=== PATIENT | male | born 1970 | race American Indian/Alaskan Native ===

== ENCOUNTER 2019-10-22 20:24 | Emergency (ER) | payer OTHER ==
[2019-10-22 20:34] VITALS: BP 134/77
--- NOTE | 2019-10-22 20:35 | Emergency Department Report ---
Blank Doc - Documentation Documentation: 48-year-old male that presents with right leg swelling and drainage. HX of CHF. This initial assessment/diagnostic orders/clinical plan/treatment(s) is/are subject to change based on patient's health status, clinical progression and re- assessment by fellow clinical providers in the ED. Further treatment and workup at subsequent clinical providers discretion. Patient/guardians urged not to elope from the ED as their condition may be serious if not clinically assessed and managed. Initial orders include: 1- Patient sent to MAIN ED for further evaluation and treatment 2- labs
[2019-10-22 21:10] LABS: Basophils % (Auto) 0.6 % (0.0-1.8); Eosinophils # (Auto) 0.1 K/mm3 (0.0-0.4); Eosinophils % (Auto) 2.2 % (0.0-4.3); Hematocrit 48.9 % (35.5-45.6); Hemoglobin 15.7 gm/dl (11.8-15.2); Lymphocytes # (Auto) 1.3 K/mm3 (1.2-5.4); Lymphocytes % (Auto) 21.2 % (13.4-35.0); Mean Corpuscular HGB Conc 32 % (32-34); Mean Corpuscular Volume 90 fl (84-94); Monocytes # (Auto) 0.4 K/mm3 (0.0-0.8); Monocytes % (Auto) 7.5 % (0.0-7.3); Platelet Count 169 K/mm3 (140-440); Red Blood Count 5.47 M/mm3 (3.65-5.03); Red Cell Distribution Width 15.6 % (13.2-15.2)
[2019-10-22 21:28] LABS: Alanine Aminotransferase 13 units/L (7-56); Albumin 3.6 g/dL (3.9-5); BUN/Creatinine Ratio 14; Blood Urea Nitrogen 14 mg/dL (9-20); Calcium 8.8 mg/dL (8.4-10.2); Hemolysis Index 21
--- NOTE | 2019-10-22 23:30 | Emergency Department Report ---
ED General Adult HPI - General Chief complaint: Extremity Injury, Lower Stated complaint: FLUID LEAKING FROM LEG Time Seen by Provider: 10/22/19 23:20 Source: patient Mode of arrival: Ambulatory Limitations: No Limitations - History of Present Illness Initial comments: Patient is a 48-year-old male that presents emergency room with complaints of right lower extremity swelling and weeping that started yesterday. Patient states it is not worsening. Patient states is improving. Patient states his edema in his right lower extremity has improved since his leg started weeping. Patient states he has a history of diabetes, hyperlipidemia, hypertension, CHF. Patient states he is compliant with all his medications to include his Coumadin. Patient denies pain in his legs. Patient denies calf tenderness. Patient denies any difficulties walking. Patient denies shortness of breath and chest pain. Patient denies fever and chills. Patient states that the fluid coming out is a clear fluid. Patient denies redness to his leg. -: Sudden - Related Data Home Medications Medication Instructions Recorded Confirmed Last Taken Lasix TAB 80 mg PO DAILY 08/12/16 08/14/16 Unknown Lisinopril 20 mg PO DAILY 08/12/16 08/14/16 Unknown Pravastatin 20 mg PO QHS 08/12/16 08/14/16 Unknown metFORMIN 1,000 mg PO BID 08/12/16 08/14/16 Unknown Coreg 6.25 mg PO BID 08/14/16 08/14/16 Unknown Previous Rx's Medication Instructions Recorded Last Taken Type Amiodarone 200 mg PO DAILY #30 08/14/16 Unknown Rx Aspirin EC [Halfprin EC] 81 mg PO QDAY #30 tablet. 08/14/16 Unknown Rx Coumadin 5 mg PO DAILY #30 08/14/16 Unknown Rx Famotidine [Pepcid] 20 mg PO BID #60 tablet 08/14/16 Unknown Rx Compress.stocking,Knee,Reg,Lrg 1 each MC ONCE #1 each 10/22/19 Unknown Rx [Relief Knee Open Toe] Allergies Allergy/AdvReac Type Severity Reaction Status Date / Time No Known Allergies Allergy Verified 11/25/15 07:22 ED Review of Systems ROS: Stated complaint: FLUID LEAKING FROM LEG Other details as noted in HPI Comment: All other systems reviewed and negative Constitutional: denies: chills, fever Eyes: denies: eye pain, eye discharge, vision change ENT: denies: ear pain, throat pain Respiratory: denies: cough, shortness of breath, wheezing Cardiovascular: edema. denies: chest pain, palpitations Endocrine: no symptoms reported Gastrointestinal: denies: abdominal pain, nausea, diarrhea Genitourinary: denies: urgency, dysuria Musculoskeletal: denies: back pain, joint swelling, arthralgia Skin: denies: rash, lesions Neurological: denies: headache, weakness, paresthesias Psychiatric: denies: anxiety, depression Hematological/Lymphatic: denies: easy bleeding, easy bruising ED Past Medical Hx - Past Medical History Previous Medical History?: Yes Hx Hypertension: Yes Hx CVA: Yes Hx Heart Attack/AMI: No Hx Congestive Heart Failure: Yes Hx Diabetes: Yes Hx Pulmonary Embolism: No Hx GERD: No Hx Liver Disease: No Hx Renal Disease: No Hx Sickle Cell Disease: No Hx Arthritis: No Hx Headaches / Migraines: No Hx Seizures: No Hx Kidney Stones: No Hx Psychiatric Treatment: No Hx Asthma: No Hx COPD: No Hx Tuberculosis: No Hx Dementia: No Hx HIV: No Additional medical history: Atrial fibrillation (Coumadin therapy). Sleep Apnea - Surgical History Past Surgical History?: Yes Hx Coronary Stent: No Hx Open Heart Surgery: No Hx Pacemaker: No Hx Internal Defibrillator: No Hx Cholecystectomy: No Hx Appendectomy: No Hx Breast Surgery: No Additional Surgical History: surgery on left hand and on mouth(fx jaw) - Family History Family history: no significant - Social History Smoking Status: Never Smoker Substance Use Type: None - Medications Home Medications: Home Medications Medication Instructions Recorded Confirmed Last Taken Type Lasix TAB 80 mg PO DAILY 08/12/16 08/14/16 Unknown History Lisinopril 20 mg PO DAILY 08/12/16 08/14/16 Unknown History Pravastatin 20 mg PO QHS 08/12/16 08/14/16 Unknown History metFORMIN 1,000 mg PO BID 08/12/16 08/14/16 Unknown History Amiodarone 200 mg PO DAILY #30 08/14/16 Unknown Rx Aspirin EC [Halfprin EC] 81 mg PO QDAY #30 tablet. 08/14/16 Unknown Rx Coreg 6.25 mg PO BID 08/14/16 08/14/16 Unknown History Coumadin 5 mg PO DAILY #30 08/14/16 Unknown Rx Famotidine [Pepcid] 20 mg PO BID #60 tablet 08/14/16 Unknown Rx Compress.stocking,Knee,Reg,Lrg 1 each ONCE #1 each 10/22/19 Unknown Rx [Relief Knee Open Toe] ED Physical Exam - General Limitations: No Limitations General appearance: alert, in no apparent distress - Head Head exam: Present: atraumatic, normocephalic - Eye Eye exam: Present: normal appearance - ENT ENT exam: Present: normal orophraynx, mucous membranes moist. Absent: mucous membranes dry - Neck Neck exam: Present: normal inspection - Respiratory Respiratory exam: Present: normal lung sounds bilaterally. Absent: respiratory distress, wheezes, rales, rhonchi, chest wall tenderness, accessory muscle use, decreased breath sounds, prolonged expiratory - Cardiovascular Cardiovascular Exam: Present: regular rate, normal rhythm. Absent: systolic murmur, diastolic murmur, rubs, gallop - GI/Abdominal GI/Abdominal exam: Present: soft, normal bowel sounds. Absent: distended, tenderness, guarding - Rectal Rectal exam: Present: deferred - Extremities Exam Extremities exam: Present: full ROM, normal capillary refill, pedal edema (bilateral lower extremity edema. Right lower extremity shows weeping of clear fluid. No tenderness to palpation. No redness noted.). Absent: tenderness, calf tenderness - Back Exam Back exam: Present: normal inspection - Neurological Exam Neurological exam: Present: alert, oriented X3 - Psychiatric Psychiatric exam: Present: normal affect, normal mood - Skin Skin exam: Present: warm, dry, normal color. Absent: rash ED Course Vital Signs 10/22/19 20:30 Temperature 98.4 F Pulse Rate 76 Respiratory 20 Rate Blood Pressure 134/77 O2 Sat by Pulse 86 Oximetry - Reevaluation(s) Reevaluation #1: I discussed all results with patient. I discussed plan of care with patient. Patient will be given compression stockings. Patient to continue all of his medications. Patient given discharge instructions. Patient voiced understanding of discharge instructions. 10/22/19 23:29 ED Medical Decision Making - Lab Data Result diagrams: 10/22/19 20:57 10/22/19 20:57 - Medical Decision Making Patient is a 48-year-old male up since emergency room with complaints of right lower extremity swelling and weeping. Patient states he always has edema but this time he is having weeping from the left lower extremity. Patient has no signs of active infection. Patient is currently on Coumadin. Patient does not have any calf tenderness. Patient stable for discharge. Patient was discharged home. Patient's labs unremarkable. Patient will be given a prescription for compression stockings. - Differential Diagnosis edema. Critical care attestation.: If time is entered above; I have spent that time in minutes in the direct care of this critically ill patient, excluding procedure time. ED Disposition Clinical Impression: Right leg swelling, Chronic systolic CHF (congestive heart failure) Edema Qualifiers: Edema type: unspecified Qualified Code(s): R60.9 - Edema, unspecified Disposition: DC- TO HOME OR SELFCARE Is pt being admited?: No Does the pt Need Aspirin: No Condition: Stable Instructions: Heart Failure (ED), Leg Edema (ED), Sequential Compression Devices (GEN) Additional Instructions: Patient to follow up with primary care in 2-3 days. Patient to follow-up with general administrator in 2-3 days. Patient to return to ER if condition worsens. Gale ent to rest. Patient to elevate his lower extremities. Patient to apply compression stockings to bilateral lower extremities. Patient to continue all medications. Prescriptions: Compress.stocking,Knee,Reg,Lrg [Relief Knee Open Toe] 1 each ONCE #1 each Time of Disposition: 23:33
== END 2019-10-23 | disposition home or self-care (01) ==
LOC: ED 20:24
DX: I50.22 Chronic systolic (congestive) heart failure (principal); R60.0 Localized edema; I11.0 Hypertensive heart disease with heart failure; I50.9 Heart failure, unspecified; E11.9 Type 2 diabetes mellitus without complications; I48.91 Unspecified atrial fibrillation; Z86.73 Personal history of transient ischemic attack (TIA), and cerebral infarction without residual deficits; Z79.899 Other long term (current) drug therapy
CPT/HCPCS: 36415; 80053; 83880; 85025

== ENCOUNTER 2022-03-28 17:45 | Inpatient (IN) | payer SELFPAY ==
--- NOTE | 2022-03-28 19:32 | Emergency Department Report ---
ED Shortness of Breath HPI - General Chief Complaint: Dyspnea/Respdistress Stated Complaint: COPD Time Seen by Provider: 03/28/22 19:24 Source: patient Mode of arrival: Ambulatory Limitations: No Limitations - History of Present Illness Initial Comments: Patient presents with complaints of SOB @ rest and on exertion. Endorses PND, orthopnea, intermittent, non radiating retrosternal chest pressure. Denies, palpitations, diaphoresis. Reports worsening bilateral leg swelling. Denies pain in his calves, recent travel, immobilization, surgery, hospitalization, sex HRT use. - Related Data Home Medications Medication Instructions Recorded Confirmed Last Taken Pravastatin 20 mg PO QHS 08/12/16 12/10/19 12/08/19 22:00 metFORMIN 1,000 mg PO BID 08/12/16 12/10/19 12/03/19 22:00 Diclofenac 1% topical gel 4 gram TRANSDERMA 4XD 12/10/19 12/10/19 12/08/19 22:00 Pradaxa 150 mg PO BID 12/10/19 12/10/19 12/08/19 22:00 Torsemide 10 mg PO DAILY 12/10/19 12/10/19 12/08/19 tiZANidine 4 mg PO TID 12/10/19 12/10/19 12/10/19 10:00 Previous Rx's Medication Instructions Recorded Last Taken Type Amiodarone 200 mg PO DAILY #30 08/14/16 12/08/19 10:00 Rx Aspirin EC [Halfprin EC] 81 mg PO QDAY #30 tablet. 08/14/16 12/08/19 10:00 Rx Compress.stocking,Knee,Reg,Lrg 1 each ONCE #1 each 10/22/19 12/08/19 22:00 Rx [Relief Knee Open Toe] Dabigatran [Pradaxa] 150 mg PO BID capsule 12/11/19 Unknown Rx Insulin Glargine [Lantus VIAL] 20 units SUB-Q QHS #30 units 12/11/19 Unknown Rx carvediloL [Coreg] 3.125 mg PO BID #60 tablet 12/11/19 Unknown Rx lisinopriL [Zestril TAB] 5 mg PO QDAY #30 tablet 12/11/19 Unknown Rx Allergies Allergy/AdvReac Type Severity Reaction Status Date / Time No Known Allergies Allergy Verified 11/25/15 07:22 ED Review of Systems ROS: Stated complaint: COPD Other details as noted in HPI Comment: All other systems reviewed and negative Constitutional: denies: chills, fever ED Past Medical Hx - Past Medical History Hx Hypertension: Yes Hx CVA: Yes Hx Heart Attack/AMI: No Hx Congestive Heart Failure: Yes Hx Diabetes: Yes Hx Pulmonary Embolism: No Hx GERD: No Hx Liver Disease: No Hx Renal Disease: No Hx Sickle Cell Disease: No Hx Arthritis: No Hx Headaches / Migraines: No Hx Seizures: No Hx Kidney Stones: No Hx Psychiatric Treatment: No Hx Asthma: No Hx COPD: No Hx Tuberculosis: No Hx Dementia: No Hx HIV: No Additional medical history: Atrial fibrillation (Coumadin therapy). Sleep Apnea - Surgical History Hx Coronary Stent: No Hx Open Heart Surgery: No Hx Pacemaker: No Hx Internal Defibrillator: No Hx Cholecystectomy: No Hx Appendectomy: No Hx Breast Surgery: No Additional Surgical History: surgery on left hand and on mouth(fx jaw) - Social History Smoking Status: Never Smoker - Medications Home Medications: Home Medications Medication Instructions Recorded Confirmed Last Taken Type Pravastatin 20 mg PO QHS 08/12/16 12/10/19 12/08/19 22:00 History metFORMIN 1,000 mg PO BID 08/12/16 12/10/19 12/03/19 22:00 History Amiodarone 200 mg PO DAILY #30 08/14/16 12/10/19 12/08/19 10:00 Rx Aspirin EC [Halfprin EC] 81 mg PO QDAY #30 tablet. 08/14/16 12/10/19 12/08/19 10:00 Rx Compress.stocking,Knee,Reg,Lrg 1 each MC ONCE #1 each 10/22/19 12/10/19 12/08/19 22:00 Rx [Relief Knee Open Toe] Diclofenac 1% topical gel 4 gram TRANSDERMA 4XD 12/10/19 12/10/19 12/08/19 22:00 History Pradaxa 150 mg PO BID 12/10/19 12/10/19 12/08/19 22:00 History Torsemide 10 mg PO DAILY 12/10/19 12/10/19 12/08/19 History tiZANidine 4 mg PO TID 12/10/19 12/10/19 12/10/19 10:00 History Dabigatran [Pradaxa] 150 mg PO BID capsule 12/11/19 Unknown Rx Insulin Glargine [Lantus VIAL] 20 units SUB-Q QHS #30 units 12/11/19 Unknown Rx carvediloL [Coreg] 3.125 mg PO BID #60 tablet 12/11/19 Unknown Rx lisinopriL [Zestril TAB] 5 mg PO QDAY #30 tablet 12/11/19 Unknown Rx ED Physical Exam - General Limitations: No Limitations General appearance: alert, in no apparent distress - Head Head exam: Present: atraumatic, normocephalic - Eye Eye exam: Present: PERRL, EOMI - ENT ENT exam: Present: mucous membranes moist, other (airway patent) - Neck Neck exam: Present: other (supple; no JVD) - Respiratory Respiratory exam: Present: other (good air entry, nml I:E, crackles in bilateral bases, no use of KURT) - Cardiovascular Cardiovascular Exam: Present: regular rate. Absent: rubs, gallop - GI/Abdominal GI/Abdominal exam: Present: soft, normal bowel sounds. Absent: distended, tenderness - Extremities Exam Extremities exam: Present: other (3+ edema in shins bilaterally; R=L'; non tender calves; neg Ck's sign bilaterally) - Back Exam Back exam: Present: full ROM. Absent: tenderness - Neurological Exam Neurological exam: Present: alert, oriented X3, CN II-XII intact. Absent: motor sensory deficit - Skin Skin exam: Present: warm, dry ED Course Vital Signs 03/28/22 03/28/22 03/28/22 18:47 19:16 19:29 Temperature 98.4 F 98.0 F Pulse Rate 104 H 106 H 98 H Respiratory 22 35 H 19 Rate Blood Pressure Blood Pressure 181/108 158/111 [Left] O2 Sat by Pulse 85 95 Oximetry 03/28/22 03/28/22 03/28/22 19:30 19:46 20:00 Temperature Pulse Rate 97 H 98 H 100 H Respiratory 28 H 18 26 H Rate Blood Pressure 158/111 165/101 172/100 Blood Pressure [Left] O2 Sat by Pulse 95 96 95 Oximetry 03/28/22 03/28/22 03/28/22 20:16 20:30 20:46 Temperature Pulse Rate 93 H 92 H 94 H Respiratory 13 18 21 Rate Blood Pressure 162/108 150/105 141/93 Blood Pressure [Left] O2 Sat by Pulse 94 96 95 Oximetry 03/28/22 03/28/22 03/28/22 21:00 21:16 21:30 Temperature Pulse Rate 97 H 91 H 96 H Respiratory 26 H 30 H 30 H Rate Blood Pressure 165/99 172/93 174/90 Blood Pressure [Left] O2 Sat by Pulse 80 L 83 L 78 L Oximetry 03/28/22 03/28/22 03/28/22 21:46 22:00 22:13 Temperature 98.0 F Pulse Rate 96 H 94 H Respiratory 27 H 35 H Rate Blood Pressure 189/100 160/91 Blood Pressure [Left] O2 Sat by Pulse 82 L 86 Oximetry 03/28/22 03/28/22 03/28/22 22:16 22:40 22:46 Temperature Pulse Rate 93 H 107 H 101 H Respiratory 27 H 20 24 Rate Blood Pressure 166/105 166/105 166/105 Blood Pressure [Left] O2 Sat by Pulse 95 89 91 Oximetry 03/28/22 22:53 Temperature 98.8 F Pulse Rate 101 H Respiratory 24 Rate Blood Pressure 166/105 Blood Pressure [Left] O2 Sat by Pulse 91 Oximetry ED Medical Decision Making - Lab Data Result diagrams: 03/28/22 20:03 03/28/22 19:50 Laboratory Tests 03/28/22 03/28/22 03/28/22 19:50 20:03 20:03 WBC 6.1 RBC 5.27 H Hgb 15.1 Hct 46.2 H MCV 88 MCH 29 MCHC 33 RDW 15.1 Plt Count 156 Lymph % (Auto) 20.6 Barry % (Auto) 7.9 H Eos % (Auto) 1.5 Baso % (Auto) 0.8 Lymph # (Auto) 1.3 Barry # (Auto) 0.5 Eos # (Auto) 0.1 Baso # (Auto) 0.0 Seg Neutrophils % 69.2 Seg Neutrophils # 4.2 Sodium 141 Potassium 3.9 Chloride 99.7 Carbon Dioxide 34 H Anion Gap 11 BUN 9 Creatinine 0.8 Estimated GFR > 60 BUN/Creatinine Ratio 11 Glucose 194 H Calcium 8.5 Total Bilirubin 0.80 AST 14 ALT 18 Alkaline Phosphatase 85 Troponin T < 0.010 NT-Pro-B Natriuret Pep 790.5 Total Protein 6.9 Albumin 3.7 L Albumin/Globulin Ratio 1.2 CXR: no acute cardiopulmonary process CTA chest: no PE; scattered ground glass attenuations throughout lungs EKG: HR 96, SR, nml NH, narrow QRS, TWI in I, aVL, no significant ST changes in contiguous leads HEART score 5 - Medical Decision Making Diff dz: worrisome for ACS with CHF exacerbation. Need to r/o pneumonia. PE, pneumothorax, aortic dissection ruled out. Received aspirin 324 mg PO x 1, NTG 0.4 mg SL x 1, furosemide 40 mg IV x 1 Critical care attestation.: If time is entered above; I have spent that time in minutes in the direct care of this critically ill patient, excluding procedure time. ED Disposition Clinical Impression: Shortness of breath, Chest pain Disposition: ADMITTED INPATIENT Is pt being admited?: No Condition: Stable Time of Disposition: 23:30 (Patient admitted to Dr. [place]wood. Sign out was given by me to the admitting physician. )
--- NOTE | 2022-03-28 19:55 | XRay Report ---
XR chest 1V ap INDICATION / CLINICAL INFORMATION: SOB COMPARISON: 12/09/19 FINDINGS: SUPPORT DEVICES: None. HEART / MEDIASTINUM: Cardiomegaly. LUNGS / PLEURA: Pulmonary vascular congestion. Costophrenic sulci are sharp. No pneumothorax. ADDITIONAL FINDINGS: No significant additional findings. IMPRESSION: 1. No acute findings. Signer Name: Barry Little MD Signed: 03/28/2022 7:51 PM Workstation Name: [id number]
[2022-03-28 20:11] LABS: Basophils % (Auto) 0.8 % (0.0-1.8); Eosinophils # (Auto) 0.1 K/mm3 (0.0-0.4); Eosinophils % (Auto) 1.5 % (0.0-4.3); Hematocrit 46.2 % (35.5-45.6); Hemoglobin 15.1 gm/dl (11.8-15.2); Lymphocytes # (Auto) 1.3 K/mm3 (1.2-5.4); Lymphocytes % (Auto) 20.6 % (13.4-35.0); Mean Corpuscular HGB Conc 33 % (32-34); Mean Corpuscular Volume 88 fl (84-94); Monocytes # (Auto) 0.5 K/mm3 (0.0-0.8); Monocytes % (Auto) 7.9 % (0.0-7.3); Platelet Count 156 K/mm3 (140-440); Red Blood Count 5.27 M/mm3 (3.65-5.03); Red Cell Distribution Width 15.1 % (13.2-15.2)
[2022-03-28 20:30] LABS: Alanine Aminotransferase 18 units/L (7-56); Albumin 3.7 g/dL (3.9-5); BUN/Creatinine Ratio 11; Blood Urea Nitrogen 9 mg/dL (9-20); Calcium 8.5 mg/dL (8.4-10.2); Hemolysis Index 7
--- NOTE | 2022-03-28 22:59 | Cat Scan Report ---
CTA CHEST WITH CONTRAST INDICATION / CLINICAL INFORMATION: SOB. TECHNIQUE: Axial CT images were obtained through the chest after injection of 100 cc of Omnipaque 350 IV contrast. 3 plane MIP and/or 3D reconstructions were produced. All CT scans at this location are performed using CT dose reduction for ALARA by means of automated exposure control. COMPARISON: Chest radiograph from earlier in the day. FINDINGS: PULMONARY ARTERIES: No pulmonary emboli. The pulmonary artery is dilated measuring up to 4.4 cm. THORACIC AORTA: Mild atherosclerotic calcification without acute abnormality. HEART: Cardiomegaly CORONARY ARTERY CALCIFICATION: Mild. MEDIASTINUM / GLYNN: Scattered shotty mediastinal lymph nodes. PLEURA: There is a trace left pleural effusion. No pneumothorax. LUNGS: There are scattered groundglass densities throughout the bilateral lungs. No pulmonary mass or suspicious pulmonary nodule. There is atelectasis in the medial left lower lobe. ADDITIONAL FINDINGS: None. UPPER ABDOMEN: No acute findings. SKELETAL STRUCTURES: Scattered degeneration. IMPRESSION: 1. No CT evidence for pulmonary embolism. 2. There is prominence of the main pulmonary artery suggesting pulmonary arterial hypertension. 3. Scattered groundglass attenuation throughout the lungs. This nonspecific may be secondary to small airways disease versus atypical infectious process versus interstitial lung disease Signer Name: Santana Fitch DO Signed: 03/28/2022 10:55 PM Workstation Name: [id number]
[2022-03-28] MEDS ORDERED: FUROSEMIDE 40 MG/4 ML INJ IV ONE (23:25)
[2022-03-28] MEDS ORDERED: ASPIRIN 81 MG TAB CHEW PO ONE (23:29)
[2022-03-28] MEDS ORDERED: NITROGLYCERIN 0.4 MG TAB SUBL SL ONE (23:29)
[2022-03-29] MEDS ORDERED: MORPHINE 4 MG/1 ML INJ IV PRN (00:09)
[2022-03-29] MEDS ORDERED: traMADol 50 MG TAB PO PRN (00:09)
[2022-03-29] MEDS ORDERED: MORPHINE 2 MG/1 ML INJ IV PRN (00:09)
[2022-03-29] MEDS ORDERED: NITROGLYCERIN 0.4 MG TAB SUBL SL PRN (00:09)
[2022-03-29] MEDS ORDERED: DEXTROSE 50% IN WATER (25GM) 50 ML SYRINGE IV PRN (00:09)
[2022-03-29] MEDS ORDERED: ACETAMINOPHEN 325 MG TAB PO PRN (00:09)
--- NOTE | 2022-03-29 00:24 | History and Physical Report ---
History of Present Illness Date of examination: 03/29/22 Date of admission: 03/29/2022 Chief complaint: Chest Pain Shortness of Breath History of present illness: 51-year-old -[place] male with known history of hypertension, diabetes mellitus, congestive heart failure presenting to the emergency room today complaining of shortness of breath and chest pain. Shortness of breath is said to have been ongoing over the past few days. He has also been having midsternal chest pressure. Symptoms are said to be worse on exertion. Patient also indicates he has been having progressive swelling of his scrotal area and also in his lower extremities. He denies any fever or chills, no headache or dizziness, no nausea vomiting and no abdominal pain. Patient however indicates that he has not been quite compliant with his medication as he has not been able to afford them due to insurance related issues. Work-up in the emergency room today, chest x-ray shows no acute findings. Labs were unremarkable. Patient being admitted for chest pain evaluation. Past History Past Medical History: diabetes, other (Atrial fibrillation (Coumadin therapy). Sleep Apnea) Past Surgical History: Other (surgery on left hand and on mouth(fx jaw)) Social history: no significant social history Family history: no significant family history Medications and Allergies Allergies Allergy/AdvReac Type Severity Reaction Status Date / Time No Known Allergies Allergy Verified 11/25/15 07:22 Home Medications Medication Instructions Recorded Confirmed Last Taken Type Pravastatin 20 mg PO QHS 08/12/16 03/29/22 12/08/19 22:00 History metFORMIN 1,000 mg PO BID 08/12/16 03/29/22 12/03/19 22:00 History Amiodarone 200 mg PO DAILY #30 08/14/16 03/29/22 12/08/19 10:00 Rx Aspirin EC [Halfprin EC] 81 mg PO QDAY #30 tablet. 08/14/16 03/29/22 1 Day Ago Rx ~03/28/22 Compress.stocking,Knee,Reg,Lrg 1 each MC ONCE #1 each 10/22/19 03/29/22 1 Day Ago Rx [Relief Knee Open Toe] ~03/28/22 Pradaxa 150 mg PO BID 12/10/19 03/29/22 12/08/19 22:00 History Torsemide 10 mg PO DAILY 0103/29/22 12/08/19 History tiZANidine 4 mg PO TID 12/10/19 03/29/22 12/10/19 10:00 History Dabigatran [Pradaxa] 150 mg PO BID capsule 12/11/19 03/29/22 Unknown Rx Insulin Glargine [Lantus VIAL] 20 units SUB-Q QHS #30 units 12/11/19 03/29/22 Unknown Rx carvediloL [Coreg] 3.125 mg PO BID #60 tablet 12/11/19 03/29/22 Unknown Rx lisinopriL [Zestril TAB] 5 mg PO QDAY #30 tablet 12/11/19 03/29/22 Unknown Rx Active Meds: Active Medications Acetaminophen (Acetaminophen 325 Mg Tab) 650 mg PO Q6H PRN PRN Reason: Pain, Mild (1-3) Aspirin (Aspirin Ec 325 Mg Tab) 325 mg PO QDAY [facility] Dextrose (Dextrose 50% In Water (25gm) 50 Ml Syringe) 50 ml IV Q30MIN PRN; Protocol PRN Reason: Hypoglycemia Furosemide (Furosemide 40 Mg/4 Ml Inj) 40 mg IV BID@0600,1800 [facility]AN Insulin Human Lispro (Insulin Lispro 100 Unit/Ml) 0 unit SUB-Q ACHS SHAYAN; Protocol Morphine Sulfate (Morphine 4 Mg/1 Ml Inj) 2 mg IV Q5MIN PRN PRN Reason: Chest Pain unrelieved by NTG Morphine Sulfate (Morphine 2 Mg/1 Ml Inj) 2 mg IV Q5MIN PRN PRN Reason: Chest Pain unrelieved by NTG Nitroglycerin (Nitroglycerin 0.4 Mg Tab Subl) 0.4 mg SL Q5M PRN PRN Reason: Chest Pain Sodium Chloride (Sodium Chloride 0.9% 10 Ml Flush Syringe) 10 ml IV PRN PRN PRN Reason: LINE FLUSH Tramadol HCl (Tramadol 50 Mg Tab) 50 mg PO Q6H PRN PRN Reason: Pain, Moderate (4-6) Review of Systems Constitutional: no fever, no chills Ears, nose, mouth and throat: no nasal congestion, no sore throat Cardiovascular: chest pain, orthopnea, no palpitations Respiratory: shortness of breath, no cough Gastrointestinal: no abdominal pain, no nausea, no vomiting, no diarrhea Genitourinary Male: no dysuria, no hematuria, no flank pain Musculoskeletal: no neck pain, no low back pain Integumentary: no rash, no pruritis Neurological: no headaches, no confusion Endocrine: no polyphagia, no polydipsia, no polyuria, no nocturia Exam - Constitutional Vitals: Temp Pulse Resp BP Pulse Ox 98.0 F 90 22 178/97 96 03/29/22 00:08 03/29/22 00:08 03/29/22 00:00 03/29/22 00:00 03/29/22 00:00 General appearance: Present: no acute distress, well-nourished, obese - EENT Eyes: Present: PERRL, EOM intact. Absent: scleral icterus ENT: hearing intact, clear oral mucosa, dentition normal - Neck Neck: Present: supple, normal ROM - Respiratory Respiratory effort: normal Respiratory: bilateral: rales (few bilateral rales) - Cardiovascular Rhythm: regular Heart Sounds: Present: S1 & S2. Absent: gallop, systolic murmur, diastolic murmur, rub, click - Extremities Extremities: no ischemia, pulses intact, pulses symmetrical, normal temperature, normal color, Full ROM Extremity abnormal: edema (Trace bilateral lower extremity edema) - Abdominal General gastrointestinal: Present: soft, non-tender, non-distended, normal bowel sounds. Absent: mass Male genitourinary: Present: scrotal edema - Integumentary Integumentary: Present: clear, warm, dry, normal turgor. Absent: rash - Musculoskeletal Musculoskeletal: strength equal bilaterally - Psychiatric Psychiatric: appropriate mood/affect, intact judgment & insight, memory intact, cooperative - Neurologic Neurologic: CNII-XII intact, no focal deficits, moves all extremities HEART Score - HEART Score History: Slightly suspicious EKG: Non-specific Age: 45-65 Risk factors: > 3 risk factors or hx of atherosclerotic disease Troponin: Troponin T < 0.010 ng/mL (0.00-0.029) 03/28/22 19:50 Troponin: < normal limit HEART Score: 4 Results - Labs CBC & Chem 7: 03/28/22 20:03 03/29/22 00:29 Labs: Abnormal lab results 03/28/22 03/28/22 Range/Units 19:50 20:03 RBC 5.27 H (3.65-5.03) M/mm3 Hct 46.2 H (35.5-45.6) % [place] % (Auto) 7.9 H (0.0-7.3) % Carbon Dioxide 34 H (22-30) mmol/L Glucose 194 H (75-100) mg/dL Albumin 3.7 L (3.9-5) g/dL Assessment and Plan - Patient Problems (1) Chest pain Current Visit: Yes Status: Acute Plan to address problem: Patient admitted and placed on telemetry. Will check serial cardiac enzymes Patient placed on daily aspirin, sublingual nitroglycerin and IV morphine as needed for chest pain. Will schedule for stress test. (2) Acute exacerbation of congestive heart failure Current Visit: No Status: Acute Qualifiers: Heart failure type: systolic Qualified Code(s): I50.23 - Acute on chronic systolic (congestive) heart failure Plan to address problem: Patient is placed on diuretics. Will monitor inputs and outputs and also monitor daily weights. Patient will be scheduled for echocardiogram (3) Diabetes Current Visit: No Status: Acute Qualifiers: Diabetes mellitus type: type 2 Diabetes mellitus group home insulin use: without group home use Diabetes mellitus complication status: without complication Qualified Code(s): E11.9 - Type 2 diabetes mellitus without complications (4) Diabetes mellitus type 2 in obese Current Visit: No Status: Chronic Plan to address problem: Patient placed on sliding scale insulin. Will monitor Accu-Cheks. (5) HTN (hypertension) Current Visit: No Status: Chronic Plan to address problem: Will place on routine home medications and monitor vital signs closely. (6) DVT prophylaxis Current Visit: No Status: Acute Plan to address problem: Patient placed on subcutaneous heparin. (7) Full code status Current Visit: Yes Status: Acute Plan to address problem: Patient is full code.
[2022-03-29 01:08] LABS: BUN/Creatinine Ratio 10; Blood Urea Nitrogen 8 mg/dL (9-20); Calcium 8.9 mg/dL (8.4-10.2); Hemolysis Index 7
[2022-03-29] MEDS ORDERED: REGADENOSON 0.4 MG/5 ML INJ IV ONE (08:30)
[2022-03-29] MEDS ORDERED: NON-FORMULARY EACH (Amiodarone 200 MG) PO SCH (10:00)
[2022-03-29] MEDS ORDERED: LISINOPRIL 5 MG TAB PO SCH ×2 (10:00)
[2022-03-29] MEDS ORDERED: AMIODARONE 200 MG TAB PO SCH (10:00)
[2022-03-29] MEDS ORDERED: carvediloL 3.125 MG TAB PO SCH (10:00)
[2022-03-29] MEDS: FUROSEMIDE 40 MG/4 ML INJ IV SCH ×2 (11:24→18:10)
[2022-03-29] MEDS: HEPARIN 5,000 UNIT/1 ML VIAL SUB-Q SCH ×3 (11:24→21:10)
[2022-03-29] MEDS: INSULIN LISPRO 100 UNIT/ML SUB-Q SCH ×4 (11:24→21:21)
[2022-03-29] MEDS: METOPROLOL TARTRATE 50 MG TAB PO SCH ×2 (12:15→21:11)
[2022-03-29] MEDS: LISINOPRIL 10 MG TAB PO SCH ×2 (12:15→21:10)
--- NOTE | 2022-03-29 13:08 | Consultation ---
History of Present Illness Consult date: 03/29/22 Requesting physician: COCO SHEARER Consult reason: chest pain History of present illness: Patient is 51-year-old male with a past medical history of HFpEF, hypertension, diabetes, FAZAL who presented to the ED with a complaint of shortness of breath that has been going on for several days. Patient reports that over the last several days he has felt his body retaining fluid and states he has noted fluid buildup around his testicles. He also reports fatigue, weakness, and dyspnea on exertion. Patient reports that for 6 months he has been without his normal cardiac medications due to insurance related issues. He also reports that he is not compliant with his diet and fluid restriction. Patient denies chest pain, nausea, vomiting, diaphoresis, palpitations. Patient was previously followed with [facility] however he states he has not followed up for about 6 months. Patient was previously seen by our practice during admission in 2019. Cardiology is consulted for chest pain Past History Past Medical History: diabetes, heart failure, hypertension, other (Atrial fibrillation (Coumadin therapy). Sleep Apnea) Past Surgical History: Other (surgery on left hand and on mouth(fx jaw)) Social history: no significant social history Family history: no significant family history Medications and Allergies Allergies Allergy/AdvReac Type Severity Reaction Status Date / Time No Known Allergies Allergy Verified 11/25/15 07:22 Home Medications Medication Instructions Recorded Confirmed Last Taken Type Pravastatin 20 mg PO QHS 08/12/16 03/29/22 12/08/19 22:00 History metFORMIN 1,000 mg PO BID 08/12/16 03/29/22 12/03/19 22:00 History Amiodarone 200 mg PO DAILY #30 08/14/16 03/29/22 12/08/19 10:00 Rx Aspirin EC [Halfprin EC] 81 mg PO QDAY #30 tablet. 08/14/16 03/29/22 1 Day Ago Rx ~03/28/22 Compress.stocking,Knee,Reg,Lrg 1 each MC ONCE #1 each 10/22/19 03/29/22 1 Day Ago Rx [Relief Knee Open Toe] ~03/28/22 Pradaxa 150 mg PO BID 12/10/19 03/29/22 12/08/19 22:00 History Torsemide 10 mg PO DAILY 12/10/19 03/29/22 12/08/19 History tiZANidine 4 mg PO TID 12/10/19 03/29/22 12/10/19 10:00 History Dabigatran [Pradaxa] 150 mg PO BID capsule 12/11/19 03/29/22 Unknown Rx Insulin Glargine [Lantus VIAL] 20 units SUB-Q QHS #30 units 12/11/19 03/29/22 Unknown Rx carvediloL [Coreg] 3.125 mg PO BID #60 tablet 12/11/19 03/29/22 Unknown Rx lisinopriL [Zestril TAB] 5 mg PO QDAY #30 tablet 12/11/19 03/29/22 Unknown Rx Active Meds: Active Medications Acetaminophen (Acetaminophen 325 Mg Tab) 650 mg PO Q6H PRN PRN Reason: Pain, Mild (1-3) Aspirin (Aspirin Ec 325 Mg Tab) 325 mg PO QDAY [facility] Dextrose (Dextrose 50% In Water (25gm) 50 Ml Syringe) 50 ml IV Q30MIN PRN; Protocol PRN Reason: Hypoglycemia Furosemide (Furosemide 40 Mg/4 Ml Inj) 40 mg IV BID@0600,1800 [facility] Last Admin: 03/29/22 11:24 Dose: Not Given Heparin Sodium (Porcine) (Heparin 5,000 Unit/1 Ml Vial) 5,000 unit SUB-Q Q8HR [facility] Last Admin: 03/29/22 11:24 Dose: Not Given Insulin Human Lispro (Insulin Lispro 100 Unit/Ml) 0 unit SUB-Q ACHS SHAYAN; Protoc ol Last Admin: 03/29/22 12:25 Dose: Not Given Lisinopril (Lisinopril 10 Mg Tab) 10 mg PO BID [facility] Last Admin: 03/29/22 12:15 Dose: 10 mg Metoprolol Tartrate (Metoprolol Tartrate 50 Mg Tab) 50 mg PO BID [facility] Last Admin: 03/29/22 12:15 Dose: 50 mg Morphine Sulfate (Morphine 4 Mg/1 Ml Inj) 2 mg IV Q5MIN PRN PRN Reason: Chest Pain unrelieved by NTG Nitroglycerin (Nitroglycerin 0.4 Mg Tab Subl) 0.4 mg SL Q5M PRN PRN Reason: Chest Pain Sodium Chloride (Sodium Chloride 0.9% 10 Ml Flush Syringe) 10 ml IV PRN PRN PRN Reason: LINE FLUSH Tramadol HCl (Tramadol 50 Mg Tab) 50 mg PO Q6H PRN PRN Reason: Pain, Moderate (4-6) Review of Systems Constitutional: no weight loss, no weight gain Ears, nose, mouth and throat: no sinus pressure, no sinus pain Cardiovascular: shortness of breath, dyspnea on exertion, no chest pain, no palpitations Respiratory: shortness of breath, dyspnea on exertion Gastrointestinal: no abdominal pain, no nausea, no vomiting Musculoskeletal: no neck pain, no leg numbness/tingling Integumentary: no rash, no pruritis, no redness Neurological: no head injury, no transient paralysis Psychiatric: no anxiety, no memory loss Endocrine: no cold intolerance, no heat intolerance Hematologic/Lymphatic: no easy bruising, no easy bleeding Physical Examination Vital Signs Temp Pulse Resp BP Pulse Ox 98.4 F 104 H 22 181/108 85 03/28/22 18:47 03/28/22 18:47 03/28/22 18:47 03/28/22 18:47 03/28/22 18:47 General appearance: no acute distress HEENT: Positive: Normocephaly Neck: Positive: trachea midline Cardiac: Positive: Reg Rate and Rhythm Lungs: Positive: Decreased Breath Sounds Neuro: Positive: Grossly Intact Abdomen: Positive: Soft Skin: Negative: Rash, Suspicious Lesions, Ulceration Extremities: Present: upper extr. pulses, edema Results 03/28/22 20:03 03/29/22 00:29 Cardiac Enzymes 03/28/22 Range/Units 19:50 AST 14 (5-40) units/L CBC 03/28/22 Range/Units 20:03 WBC 6.1 (4.5-11.0) K/mm3 RBC 5.27 H (3.65-5.03) M/mm3 Hgb 15.1 (11.8-15.2) gm/dl Hct 46.2 H (35.5-45.6) % Plt Count 156 (140-440) K/mm3 Lymph # (Auto) 1.3 (1.2-5.4) K/mm3 [place] # (Auto) 0.5 (0.0-0.8) K/mm3 Eos # (Auto) 0.1 (0.0-0.4) K/mm3 Baso # (Auto) 0.0 (0.0-0.1) K/mm3 Comprehensive Metabolic Panel 03/28/22 03/29/22 Range/Units 19:50 00:29 Sodium 141 143 (137-145) mmol/L Potassium 3.9 3.8 (3.6-5.0) mmol/L Chloride 99.7 99.5 (98-107) mmol/L Carbon Dioxide 34 H 34 H (22-30) mmol/L BUN 9 8 L (9-20) mg/dL Creatinine 0.8 0.8 (0.8-1.3) mg/dL Glucose 194 H 192 H (75-100) mg/dL Calcium 8.5 8.9 (8.4-10.2) mg/dL AST 14 (5-40) units/L ALT 18 (7-56) units/L Alkaline Phosphatase 85 (35-129) units/L Total Protein 6.9 (6.3-8.2) g/dL Albumin 3.7 L (3.9-5) g/dL - Imaging and Cardiology Echo: pending EKG interpretations - Telemetry EKG Rhythm: Sinus Tachycardia - EKG Sinus rhythms and dysrhythmias: sinus tachycardia Supraventricular dysrhythmia: atrial premature complexe Repolarization changes or abnormalities: nonspecific abnormality, ST segment, and/or T wave Assessment and Plan Patient is 51-year-old male with a past medical history of HFpEF, hypertension, diabetes, FAZAL who presented to the ED with a complaint of shortness of breath that has been going on for several days. Acute on chronic HFpEF Cardiomyopathy Hypertension Diabetes FAZAL Echo 12/09/2019-EF 50 to 55%. Mild concentric LVH. Impaired relaxation pattern. Right ventricle systolic function is normal. Plan: EKG shows sinus tach 104 APCs nonspecific T abnormalities with no acute ischemic changes. Troponins negative x2. Patient denies any complaints of chest pain. AMI ruled out Will initiate metoprolol 50 mg p.o. twice daily and lisinopril 10 mg p.o. twice daily Agree with Lasix 40 mg IV twice daily for diuresis Strict I&O's with close monitoring renal function repeat BMP in the a.m. Patient initially scheduled for stress test however patient had full breakfast and was stress test canceled Patient denies any complaints of chest pain, had negative troponins, and reports normal cardiac cath within the last few years. No indication for inpatient ischemic eval at this time Echo pending Discussed with patient importance of medication compliance, diet compliance, and fluid restriction compliant Plan of care discussed with patient who verbalized understanding and agreement Patient seen in conjunction with Dr. Alberts who agrees with this plan of care - Patient Problems (1) Shortness of breath Current Visit: Yes Status: Acute (2) Acute exacerbation of congestive heart failure Current Visit: No Status: Acute Qualifiers: Heart failure type: systolic Qualified Code(s): I50.23 - Acute on chronic systolic (congestive) heart failure (3) Diabetes Current Visit: No Status: Acute Qualifiers: Diabetes mellitus type: type 2 Diabetes mellitus alf insulin use: without alf use Diabetes mellitus complication status: without complication Qualified Code(s): E11.9 - Type 2 diabetes mellitus without complications (4) HTN (hypertension) Current Visit: No Status: Chronic (5) Sleep apnea Current Visit: No Status: Chronic
--- NOTE | 2022-03-29 14:22 | Event Note ---
Date: 03/29/22 Patient examined at the bedside this morning. He reports lack of medications for the last 6 months after relocating from [place]. He has a history of CHF and recalls taking Coreg and torsemide doses he cannot remember. Currently not having any chest pain nor shortness of breath. He has noticed improvement in scrotal and bilateral lower extremity swelling. Patient updated on current care plan and is in agreement.
[2022-03-30] MEDS: FUROSEMIDE 40 MG/4 ML INJ IV SCH ×2 (05:17→21:35)
[2022-03-30] MEDS: HEPARIN 5,000 UNIT/1 ML VIAL SUB-Q SCH ×3 (05:17→21:35)
[2022-03-30 06:10] LABS: BUN/Creatinine Ratio 8; Blood Urea Nitrogen 10 mg/dL (9-20); Calcium 8.5 mg/dL (8.4-10.2); Hemolysis Index 6
[2022-03-30] MEDS: INSULIN LISPRO 100 UNIT/ML SUB-Q SCH ×3 (08:56→21:35)
[2022-03-30] MEDS: METOPROLOL TARTRATE 50 MG TAB PO SCH ×2 (10:49→21:08)
[2022-03-30] MEDS: ASPIRIN EC 325 MG TAB PO SCH (10:49)
[2022-03-30] MEDS: LISINOPRIL 10 MG TAB PO SCH ×2 (10:50→21:09)
[2022-03-30] MEDS ORDERED: MAGNESIUM SULFATE 2 GM/50 ML BAG IV ONE (10:59)
--- NOTE | 2022-03-30 11:53 | Progress Note ---
Assessment and Plan Assessment and plan: #Acute hypoxic respiratory failure #CO2 narcosis -CTA negative for PE, did show scattered ground glass opacities bilaterally -no baseline O2 at home -patient was on 3L NC, CPAP at night -AB.2/103.2/ -patient placed on BiPAP, will monitor for improvement with repeat ABG in 2hrs -Pulmonology/CC consulted, assistance appreciated #Acute on chronic combined diastolic and systolic heart failure -TTE: EF 25-30% -continue lisinopril, metoprolol and lasix -strict I/Os, daily weights, cardiac diet -no need for ischemic evaluation at this time -Cardiology consulted, assistance appreciated #Metabolic alkalosis -likely secondary to CO2 retention from FAZAL -worsening likely due to diuretics #Obstructive sleep apnea #Obesity hypoventilation syndrome -patient reportedly uses CPAP at home -CPAP ordered while inpatient -patient morbidly obese, will require bariatric surgery evaluation at discharge #Type II Diabetes with hyperglycemia -patient reports taking metformin in the past -A1C 8.8% -will continue SSI while inpatient -will restart metformin at discharge #Hypertension -Patient taking medications at home -BP controlled while inpatient -We will continue with GDMT for CHF #Morbid obesity -BMI 48.9% -Counseled patient on the importance of weight loss, incorporating exercise, and dietary changes (lean meats, fresh fruits and vegetables, and water intake). Patient expresses understanding. -Time: +15 min #Advanced care planning -Disease education conducted, care plan discussed, diagnoses discussed, prognosis discussed, and patient acknowledges understanding with care plan -Time: +30 min History Interval history: Patient with desaturations overnight which improved with BiPAP. When seen this morning he was sitting on the side of bed with nasal cannula on drifting in and out of sleep. He reports improvement in his scrotal swelling. Denies shortness of breath. He reports that he did not sleep last night. ABG was ordered and showed CO2 of 103 with pH of 7.2. Patient was placed on BiPAP. Hospitalist Physical - Physical exam Narrative exam: GENERAL: Obese. Sitting on the side and out of sleep, but easy to arouse. HEENT: NC in place @ 3LPM NECK: Supple. CHEST/LUNGS: Distant breath sounds bilaterally. HEART/CARDIOVASCULAR: RRR. No murmur, rubs or gallops appreciated. ABDOMEN: +BS. NT/ND. SKIN: No rashes noted. NEURO: No focal motor deficit appreciated. EXTREMITIES: No cyanosis, clubbing. Improving lower extremity edema. PSYCH: Cooperative. - Constitutional Vitals: Temp Pulse Resp BP Pulse Ox 98.7 F 59 L 16 101/65 76 L 03/30/22 07:39 03/30/22 10:00 03/30/22 07:39 03/30/22 07:39 03/30/22 07:39 General appearance: Present: no acute distress HEART Score - HEART Score EKG: Non-specific Age: 45-65 Risk factors: > 3 risk factors or hx of atherosclerotic disease Troponin: Troponin T < 0.010 ng/mL (0.00-0.029) 03/29/22 11:01 Troponin: < normal limit Results - Labs CBC & Chem 7: 03/28/22 20:03 03/30/22 05:21 Labs: Laboratory Last Values WBC 6.1 K/mm3 (4.5-11.0) 03/28/22 20:03 RBC 5.27 M/mm3 (3.65-5.03) H 03/28/22 20:03 Hgb 15.1 gm/dl (11.8-15.2) 03/28/22 20:03 Hct 46.2 % (35.5-45.6) H 03/28/22 20:03 MCV 88 fl (84-94) 03/28/22 20:03 MCH 29 pg (28-32) 03/28/22 20:03 MCHC 33 % (32-34) 03/28/22 20:03 RDW 15.1 % (13.2-15.2) 03/28/22 20:03 Plt Count 156 K/mm3 (140-440) 03/28/22 20:03 Lymph % (Auto) 20.6 % (13.4-35.0) 03/28/22 20:03 [place] % (Auto) 7.9 % (0.0-7.3) H 03/28/22 20:03 Eos % (Auto) 1.5 % (0.0-4.3) 03/28/22 20:03 Baso % (Auto) 0.8 % (0.0-1.8) 03/28/22 20:03 Lymph # (Auto) 1.3 K/mm3 (1.2-5.4) 03/28/22 20:03 [place] # (Auto) 0.5 K/mm3 (0.0-0.8) 03/28/22 20:03 Eos # (Auto) 0.1 K/mm3 (0.0-0.4) 03/28/22 20:03 Baso # (Auto) 0.0 K/mm3 (0.0-0.1) 03/28/22 20:03 Seg Neutrophils % 69.2 % (40.0-70.0) 03/28/22 20:03 Seg Neutrophils # 4.2 K/mm3 (1.8-7.7) 03/28/22 20:03 Sodium 141 mmol/L (137-145) 03/30/22 05:21 Potassium 4.7 mmol/L (3.6-5.0) D 03/30/22 05:21 Chloride 96.8 mmol/L (98-107) L 03/30/22 05:21 Carbon Dioxide 40 mmol/L (22-30) H 03/30/22 05:21 Anion Gap 9 mmol/L 03/30/22 05:21 BUN 10 mg/dL (9-20) 03/30/22 05:21 Creatinine 1.2 mg/dL (0.8-1.3) 03/30/22 05:21 Estimated GFR > 60 ml/min 03/30/22 05:21 BUN/Creatinine Ratio 8 % 03/30/22 05:21 Glucose 142 mg/dL (75-100) H 03/30/22 05:21 POC Glucose 219 mg/dL (70-105) H 03/30/22 11:13 Hemoglobin A1c 8.8 % (4-6) H 03/30/22 05:21 Calcium 8.5 mg/dL (8.4-10.2) 03/30/22 05:21 Total Bilirubin 0.80 mg/dL (0.1-1.2) 03/28/22 19:50 AST 14 units/L (5-40) 03/28/22 19:50 ALT 18 units/L (7-56) 03/28/22 19:50 Alkaline Phosphatase 85 units/L (35-129) 03/28/22 19:50 Troponin T < 0.010 ng/mL (0.00-0.029) 03/29/22 11:01 NT-Pro-B Natriuret Pep 790.5 pg/mL (0-900) 03/28/22 20:03 Total Protein 6.9 g/dL (6.3-8.2) 03/28/22 19:50 Albumin 3.7 g/dL (3.9-5) L 03/28/22 19:50 Albumin/Globulin Ratio 1.2 % 03/28/22 19:50 Bell/IV: Voiding Method Urinal Active Medications - Current Medications Current Medications: Generic Name Dose Route Start Last Admin Trade Name Freq PRN Reason Stop Dose Admin Acetaminophen 650 mg 03/29/22 00:09 Acetaminophen 325 Mg Tab PO Q6H PRN Pain, Mild (1-3) Aspirin 325 mg 03/30/22 10:00 03/30/22 10:49 Aspirin Ec 325 Mg Tab PO 325 mg QDAY SHAYAN Administration Dextrose 50 ml 03/29/22 00:09 Dextrose 50% In Water (25gm) 50 Ml Syringe IV Q30MIN PRN Hypoglycemia Protocol Furosemide 40 mg 03/29/22 06:00 03/30/22 05:17 Furosemide 40 Mg/4 Ml Inj IV 40 mg BID@0600,1800 SHAYAN Administration Heparin Sodium (Porcine) 5,000 unit 03/29/22 06:00 03/30/22 05:17 Heparin 5,000 Unit/1 Ml Vial SUB-Q 5,000 unit Q8HR [facility] Administration Magnesium Sulfate 2 gm in 50 mls @ 25 mls/hr 03/30/22 10:59 Magnesium Sulfate 2gm/50ml IV 03/30/22 12:58 ONCE ONE Insulin Human Lispro 0 unit 03/29/22 07:30 03/30/22 08:56 Insulin Lispro 100 Unit/Ml SUB-Q Not Given ACHS [facility] Protocol Lisinopril 10 mg 03/29/22 11:00 03/30/22 10:50 Lisinopril 10 Mg Tab PO 10 mg BID SHAYAN Administration Metoprolol Tartrate 100 mg 03/30/22 10:59 Metoprolol Tartrate 50 Mg Tab PO BID [facility]AN Morphine Sulfate 2 mg 03/29/22 00:09 Morphine 4 Mg/1 Ml Inj IV Q5MIN PRN Chest Pain unrelieved by NTG Nitroglycerin 0.4 mg 03/29/22 00:09 Nitroglycerin 0.4 Mg Tab Subl SL Q5M PRN Chest Pain Sodium Chloride 10 ml 03/29/22 00:09 Sodium Chloride 0.9% 10 Ml Flush Syringe IV PRN PRN LINE FLUSH Tramadol HCl 50 mg 03/29/22 00:09 Tramadol 50 Mg Tab PO Q6H PRN Pain, Moderate (4-6) Nutrition/Malnutrition Assess - Dietary Evaluation Nutrition/Malnutrition Findings: Nutrition Notes Start: 03/29/22 16:19 Freq: Status: Active Protocol: Document 03/29/22 16:19 ADRIAN (Rec: 03/29/22 16:33 ADRIAN [id number]) Nutrition Notes Need for Assessment generated from: MD Order,Education Initial or Follow up Brief Note Current Diagnosis Diabetes,Hypertension Other Pertinent Diagnosis SOB, HFpEF, Bilateral LE Swelling, Scrotum swelling, Atrial Fibrilation. Current Diet NPO (since 03/30 00:01). Height 5 ft 5 in Weight 131.9 kg [place] Body Weight (kg) 61.81 BMI 48.4 Intake Prior to Admission Good Weight change and time frame Pt denies having loss body weight [place]AY[place]. Weight Status Morbidly Obese Subjective/Other Information RD consult for nutrition education assessment. Pt currently on NPO. Procedure planned for 03/30 Stress Test, NPO required. Pt is on Room Air, O2 saturation @ 95%, according to Vital Signs notes. Pt still in critical condition , not a candidate for Nutrition Education at the time, will assess feasibility on F/U. Percent of energy/protein needs met: Pt currently on NPO. Nutrition Intervention Follow-Up By: 03/31/22 Additional Comments Nutrition education will be provided on F/U, if feasible. Continue monitoring food tolerance, %PO intake of meals , and BM.
--- NOTE | 2022-03-30 11:55 | Progress Note ---
Assessment and Plan Patient is 51-year-old male with a past medical history of HFpEF, hypertension, diabetes, FAZAL who presented to the ED with a complaint of shortness of breath that has been going on for several days. Acute respiratory failure Acute on chronic HFpEF Cardiomyopathy Hypertension Diabetes FAZAL Echo 12/09/2019-EF 50 to 55%. Mild concentric LVH. Impaired relaxation pattern. Right ventricle systolic function is normal. Echo 03/29/2022-EF 25 to 30% LV is mildly dilated. Mild concentric LVH. Right ventricle mildly dilated. Right ventricle is mildly hypokinetic. Trace tricuspid regurgitation Plan: Patient having O2 sats dropped down into the 70s and 80s. Per conversation with staff patient has been noncompliant with BiPAP and nasal cannula. Patient found to be somnolent this a.m. ABG ordered. Discussed with nurse to put patient on BiPAP Patient had episodes of NSVT overnight will increase to metoprolol 100 mg p.o. twice daily and replace magnesium. Check magnesium level in the morning Continue and lisinopril 10 mg p.o. twice daily Continue Lasix 40 mg IV twice daily for diuresis Strict I&O's with close monitoring renal function repeat BMP in the a.m. Patient denies any complaints of chest pain, had negative troponins, and reports normal cardiac cath within the last few years. No indication for inpatient ischemic eval at this time Patient seen in conjunction with Dr. Alberts who agrees with this plan of care - Patient Problems (1) Shortness of breath Current Visit: Yes Status: Acute (2) Acute exacerbation of congestive heart failure Current Visit: No Status: Acute Qualifiers: Heart failure type: systolic Qualified Code(s): I50.23 - Acute on chronic systolic (congestive) heart failure (3) Diabetes Current Visit: No Status: Acute Qualifiers: Diabetes mellitus type: type 2 Diabetes mellitus residential insulin use: without residential use Diabetes mellitus complication status: without complication Qualified Code(s): E11.9 - Type 2 diabetes mellitus without complications (4) HTN (hypertension) Current Visit: No Status: Chronic (5) Sleep apnea Current Visit: No Status: Chronic Subjective Date of service: 03/30/22 Principal diagnosis: Acute on chronic HFrEF Interval history: Patient sitting in bed somnolent this a.m. Sinus 80s to 90s with episodes of NSVT overnight Objective Vital Signs Temp Pulse Resp BP Pulse Ox 03/30/22 10:00 59 L 03/30/22 07:39 98.7 F 59 L 16 101/65 76 L 03/30/22 03:38 98.0 F 88 22 135/74 99 03/30/22 00:00 97 03/29/22 23:37 78 28 H 100 03/29/22 23:23 98.0 F 83 17 171/86 100 03/29/22 22:00 84 03/29/22 19:23 97.3 F L 70 16 142/95 94 03/29/22 15:43 98.3 F 68 124/72 95 03/29/22 12:33 92 - Physical Examination General: Other (Somnolent) HEENT: Positive: Normocephaly Neck: Positive: trachea midline Cardiac: Positive: Reg Rate and Rhythm Lungs: Positive: Decreased Breath Sounds Neuro: Positive: Grossly Intact Abdomen: Positive: Soft Skin: Negative: Rash, Suspicious Lesions, Ulceration Extremities: Present: upper extr. pulses, edema - Labs and Meds Comprehensive Metabolic Panel 03/30/22 Range/Units 05:21 Sodium 141 (137-145) mmol/L Potassium 4.7 D (3.6-5.0) mmol/L Chloride 96.8 L (98-107) mmol/L Carbon Dioxide 40 H (22-30) mmol/L BUN 10 (9-20) mg/dL Creatinine 1.2 (0.8-1.3) mg/dL Glucose 142 H (75-100) mg/dL Calcium 8.5 (8.4-10.2) mg/dL - Imaging and Cardiology Echo: report reviewed - Telemetry EKG Rhythm: Sinus Rhythm - EKG Sinus rhythms and dysrhythmias: sinus rhythm Ventricular dysrhythmias: non-sustained ventricular Repolarization changes or abnormalities: nonspecific abnormality, ST segment, and/or T wave
[2022-03-30 12:00] LABS: ABG Base Excess 14.2 mmol/L (-2.0-3.0); ABG HCO3 46.6 mmol/L (20.0-26.0); ABG Methemoglobin 0.6 % (0.0-1.5); ABG PCO2 103.2 mm Hg; ABG PH 7.273 pH Units (7.350-7.450); ABG PO2 85.9 mm Hg (80.0-90.0)
[2022-03-30 15:40] LABS: ABG Base Excess 11.6 mmol/L (-2.0-3.0); ABG HCO3 42.6 mmol/L (20.0-26.0); ABG Methemoglobin 0.6 % (0.0-1.5); ABG Oxygen Saturation 98.1 % (95.0-99.0); ABG PCO2 90.4 mm Hg; ABG PH 7.291 pH Units (7.350-7.450); ABG PO2 129.6 mm Hg (80.0-90.0)
[2022-03-31 05:54] LABS: BUN/Creatinine Ratio 18; Blood Urea Nitrogen 14 mg/dL (9-20); Calcium 8.6 mg/dL (8.4-10.2); Hemolysis Index 17
[2022-03-31] MEDS: HEPARIN 5,000 UNIT/1 ML VIAL SUB-Q SCH ×3 (06:24→21:11)
[2022-03-31] MEDS: FUROSEMIDE 40 MG/4 ML INJ IV SCH ×2 (06:25→18:08)
--- NOTE | 2022-03-31 07:42 | Progress Note ---
Assessment and Plan Assessment and plan: #Acute hypoxic respiratory failure #CO2 narcosis -CTA negative for PE, did show scattered ground glass opacities bilaterally -no baseline O2 at home -NC in AM, BiPAP with naps and at night -AB.2/103.2/85; repeat ABG pending -Pulmonology/CC consulted, assistance appreciated #Acute on chronic combined diastolic and systolic heart failure -TTE: EF 25-30% -continue lisinopril, metoprolol and lasix -strict I/Os, daily weights, cardiac diet -no need for ischemic evaluation at this time -Cardiology consulted, assistance appreciated #Metabolic alkalosis -likely secondary to CO2 retention from FAZAL -worsening likely due to diuretics #Obstructive sleep apnea #Obesity hypoventilation syndrome -patient reportedly uses CPAP at home -CPAP ordered while inpatient -patient morbidly obese, will require bariatric surgery evaluation at discharge #Type II Diabetes with hyperglycemia -patient reports taking metformin in the past -A1C 8.8% -will continue SSI while inpatient -will restart metformin at discharge #Hypertension-improved -Patient taking medications at home -BP controlled while inpatient -We will continue with GDMT for CHF #Morbid obesity -BMI 48.9% -Counseled patient on the importance of weight loss, incorporating exercise, and dietary changes (lean meats, fresh fruits and vegetables, and water intake). Patient expresses understanding. -Time: +15 min #Advanced care planning -Disease education conducted, care plan discussed, diagnoses discussed, progno sis discussed, and patient acknowledges understanding with care plan -Time: +30 min History Interval history: Patient tolerated BiPAP overnight. Currently sitting on the side of the bed. On supplemental O2 with no distress noted. He is alert and oriented x3. Discussed yesterday's advance care plan for today. Pending 12 PM ABG. Hospitalist Physical - Physical exam Narrative exam: GENERAL: Obese. Sitting on the side of the bed in no acute distress HEENT: NC in place @ 2LPM NECK: Supple. CHEST/LUNGS: Distant breath sounds bilaterally. HEART/CARDIOVASCULAR: RRR. No murmur, rubs or gallops appreciated. ABDOMEN: +BS. NT/ND. SKIN: No rashes noted. NEURO: No focal motor deficit appreciated. EXTREMITIES: Chronic venous stasis changes, clubbing. Improving lower extremity edema. PSYCH: Cooperative. - Constitutional Vitals: Temp Pulse Resp BP Pulse Ox 97.8 F 60 21 99/63 97 03/31/22 03:40 03/31/22 03:40 03/31/22 03:40 03/31/22 03:40 03/31/22 03:40 General appearance: Present: no acute distress HEART Score - HEART Score EKG: Non-specific Age: 45-65 Risk factors: > 3 risk factors or hx of atherosclerotic disease Troponin: Troponin T < 0.010 ng/mL (0.00-0.029) 03/29/22 11:01 Troponin: < normal limit Results - Labs CBC & Chem 7: 03/28/22 20:03 03/31/22 04:59 Labs: Laboratory Last Values WBC 6.1 K/mm3 (4.5-11.0) 03/28/22 20:03 RBC 5.27 M/mm3 (3.65-5.03) H 03/28/22 20:03 Hgb 15.1 gm/dl (11.8-15.2) 03/28/22 20:03 Hct 46.2 % (35.5-45.6) H 03/28/22 20:03 MCV 88 fl (84-94) 03/28/22 20:03 MCH 29 pg (28-32) 03/28/22 20:03 MCHC 33 % (32-34) 03/28/22 20:03 RDW 15.1 % (13.2-15.2) 03/28/22 20:03 Plt Count 156 K/mm3 (140-440) 03/28/22 20:03 Lymph % (Auto) 20.6 % (13.4-35.0) 03/28/22 20:03 [place] % (Auto) 7.9 % (0.0-7.3) H 03/28/22 20:03 Eos % (Auto) 1.5 % (0.0-4.3) 03/28/22 20:03 Baso % (Auto) 0.8 % (0.0-1.8) 03/28/22 20:03 Lymph # (Auto) 1.3 K/mm3 (1.2-5.4) 03/28/22 20:03 [place] # (Auto) 0.5 K/mm3 (0.0-0.8) 03/28/22 20:03 Eos # (Auto) 0.1 K/mm3 (0.0-0.4) 03/28/22 20:03 Baso # (Auto) 0.0 K/mm3 (0.0-0.1) 03/28/22 20:03 Seg Neutrophils % 69.2 % (40.0-70.0) 03/28/22 20:03 Seg Neutrophils # 4.2 K/mm3 (1.8-7.7) 03/28/22 20:03 ABG pH 7.291 pH Units (7.350-7.450) L 03/30/22 15:00 ABG pCO2 90.4 mm Hg 03/30/22 15:00 ABG pO2 129.6 mm Hg (80.0-90.0) H 03/30/22 15:00 ABG HCO3 42.6 mmol/L (20.0-26.0) H 03/30/22 15:00 ABG O2 Saturation 98.1 % (95.0-99.0) 03/30/22 15:00 ABG O2 Content 19.9 (0.0-44) 03/30/22 15:00 ABG Base Excess 11.6 mmol/L (-2.0-3.0) H 03/30/22 15:00 ABG Hemoglobin 14.8 gm/dl (14.0-18.0) 03/30/22 15:00 ABG Carboxyhemoglobin 2.8 % (0.0-5.0) 03/30/22 15:00 ABG Methemoglobin 0.6 % (0.0-1.5) 03/30/22 15:00 Oxyhemoglobin 94.8 % (95.0-99.0) L 03/30/22 15:00 FiO2 40 % 03/30/22 15:00 Sodium 143 mmol/L (137-145) 03/31/22 04:59 Potassium 4.2 mmol/L (3.6-5.0) 03/31/22 04:59 Chloride 98.5 mmol/L (98-107) 03/31/22 04:59 Carbon Dioxide 38 mmol/L (22-30) H 03/31/22 04:59 Anion Gap 11 mmol/L 03/31/22 04:59 BUN 14 mg/dL (9-20) 03/31/22 04:59 Creatinine 0.8 mg/dL (0.8-1.3) 03/31/22 04:59 Estimated GFR > 60 ml/min 03/31/22 04:59 BUN/Creatinine Ratio 18 % 03/31/22 04:59 Glucose 163 mg/dL (75-100) H 03/31/22 04:59 POC Glucose 208 mg/dL (70-105) H 03/30/22 20:10 Hemoglobin A1c 8.8 % (4-6) H 03/30/22 05:21 Calcium 8.6 mg/dL (8.4-10.2) 03/31/22 04:59 Magnesium 1.90 mg/dL (1.7-2.3) 03/31/22 04:59 Total Bilirubin 0.80 mg/dL (0.1-1.2) 03/28/22 19:50 AST 14 units/L (5-40) 03/28/22 19:50 ALT 18 units/L (7-56) 03/28/22 19:50 Alkaline Phosphatase 85 units/L (35-129) 03/28/22 19:50 Troponin T < 0.010 ng/mL (0.00-0.029) 03/29/22 11:01 NT-Pro-B Natriuret Pep 790.5 pg/mL (0-900) 03/28/22 20:03 Total Protein 6.9 g/dL (6.3-8.2) 03/28/22 19:50 Albumin 3.7 g/dL (3.9-5) L 03/28/22 19:50 Albumin/Globulin Ratio 1.2 % 03/28/22 19:50 Bell/IV: Voiding Method Toilet Active Medications - Current Medications Current Medications: Generic Name Dose Route Start Last Admin Trade Name Freq PRN Reason Stop Dose Admin Acetaminophen 650 mg 03/29/22 00:09 Acetaminophen 325 Mg Tab PO Q6H PRN Pain, Mild (1-3) Aspirin 325 mg 03/30/22 10:00 03/30/22 10:49 Aspirin Ec 325 Mg Tab PO 325 mg QDAY SHAYAN Administration Dextrose 50 ml 03/29/22 00:09 Dextrose 50% In Water (25gm) 50 Ml Syringe IV Q30MIN PRN Hypoglycemia Protocol Furosemide 40 mg 03/29/22 06:00 03/31/22 06:25 Furosemide 40 Mg/4 Ml Inj IV 40 mg BID@0600,1800 SHAYAN Administration Heparin Sodium (Porcine) 5,000 unit 03/29/22 06:00 03/31/22 06:24 Heparin 5,000 Unit/1 Ml Vial SUB-Q 5,000 unit Q8HR SHAYAN Administration Insulin Human Lispro 0 unit 03/29/22 07:30 03/30/22 21:35 Insulin Lispro 100 Unit/Ml SUB-Q Not Given ACHS [facility] Protocol Lisinopril 10 mg 03/29/22 11:00 03/30/22 21:09 Lisinopril 10 Mg Tab PO 10 mg BID SHAYAN Administration Metoprolol Tartrate 100 mg 03/30/22 10:59 03/30/22 21:08 Metoprolol Tartrate 50 Mg Tab PO 100 mg BID SHAYAN Administration Morphine Sulfate 2 mg 03/29/22 00:09 Morphine 4 Mg/1 Ml Inj IV Q5MIN PRN Chest Pain unrelieved by NTG Nitroglycerin 0.4 mg 03/29/22 00:09 Nitroglycerin 0.4 Mg Tab Subl SL Q5M PRN Chest Pain Sodium Chloride 10 ml 03/29/22 00:09 03/30/22 21:10 Sodium Chloride 0.9% 10 Ml Flush Syringe IV 10 ml PRN PRN Administration LINE FLUSH Tramadol HCl 50 mg 03/29/22 00:09 Tramadol 50 Mg Tab PO Q6H PRN Pain, Moderate (4-6) Nutrition/Malnutrition Assess - Dietary Evaluation Nutrition/Malnutrition Findings: Nutrition Notes Start: 03/29/22 16:19 Freq: Status: Active Protocol: Document 03/29/22 16:19 ADRIAN (Rec: 03/29/22 16:33 ADRIAN [email or web address]) Nutrition Notes Need for Assessment generated from: MD Order,Education Initial or Follow up Brief Note Current Diagnosis Diabetes,Hypertension Other Pertinent Diagnosis SOB, HFpEF, Bilateral LE Swelling, Scrotum swelling, Atrial Fibrilation. Current Diet NPO (since 03/30 00:01). 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 Weight Status Morbidly Obese Subjective/Other Information RD consult for nutrition education assessment. Pt currently on NPO. Procedure planned for 03/30 Stress Test, NPO required. Pt is on Room Air, O2 saturation @ 95%, according to Vital Signs notes. Pt still in critical condition , not a candidate for Nutrition Education at the time, will assess feasibility on F/U. Percent of energy/protein needs met: Pt currently on NPO. Nutrition Intervention Follow-Up By: 03/31/22 Additional Comments Nutrition education will be provided on F/U, if feasible. Continue monitoring food tolerance, %PO intake of meals , and BM.
[2022-03-31] MEDS: INSULIN LISPRO 100 UNIT/ML SUB-Q SCH ×4 (07:52→21:13)
[2022-03-31] MEDS: LISINOPRIL 10 MG TAB PO SCH (09:53)
[2022-03-31] MEDS: ASPIRIN EC 325 MG TAB PO SCH (09:53)
[2022-03-31] MEDS: METOPROLOL TARTRATE 50 MG TAB PO SCH ×2 (09:54→21:12)
--- NOTE | 2022-03-31 12:04 | XRay Report ---
ABDOMEN 1 VIEW INDICATION / CLINICAL INFORMATION: abdominal distention. COMPARISON: None available. FINDINGS: TUBES / LINES: None. BOWEL GAS PATTERN: The colon contains a large amount of stool. No other significant abnormality. FREE AIR / EXTRALUMINAL GAS: None seen. ADDITIONAL FINDINGS: No significant additional findings. IMPRESSION: Findings compatible with constipation. No other acute abdominal findings. Signer Name: Salvatore Ram MD Signed: 03/31/2022 11:59 AM Workstation Name: [id number]
--- NOTE | 2022-03-31 13:34 | Consultation ---
History of Present Illness Consult date: 03/31/22 Requesting physician: DEE DIAZ Reason for consult: other (Acute Hypercapnic and Hypoxemic Respiratory Failure) History of present illness: PULMONARY/CCM CONSULT NOTE (Full dictation # [id number]) Please see dictated notes for full details Past History Past Medical History: diabetes, heart failure, hypertension, other (Atrial fibrillation (Coumadin therapy). Sleep Apnea) Past Surgical History: Other (surgery on left hand and on mouth(fx jaw)) Social history: no significant social history Family history: no significant family history Medications and Allergies Allergies Allergy/AdvReac Type Severity Reaction Status Date / Time No Known Allergies Allergy Verified 11/25/15 07:22 Home Medications Medication Instructions Recorded Confirmed Last Taken Type Pravastatin 20 mg PO QHS 08/12/16 03/29/22 12/08/19 22:00 History metFORMIN 1,000 mg PO BID 08/12/16 03/29/22 12/03/19 22:00 History Amiodarone 200 mg PO DAILY #30 08/14/16 03/29/22 12/08/19 10:00 Rx RX: Aspirin EC [Halfprin EC] 81 mg PO QDAY #30 tablet. 08/14/16 03/29/22 1 Day Ago Rx ~03/28/22 RX: Compress.stocking,Knee,Reg,Lrg 1 each MC ONCE #1 each 10/22/19 03/29/22 1 Day Ago Rx [Relief Knee Open Toe] ~03/28/22 Pradaxa 150 mg PO BID 12/10/19 03/29/22 12/08/19 22:00 History Torsemide 10 mg PO DAILY 12/10/19 03/29/22 12/08/19 History tiZANidine 4 mg PO TID 12/10/19 03/29/22 12/10/19 10:00 History RX: Dabigatran [Pradaxa] 150 mg PO BID capsule 12/11/19 03/29/22 Unknown Rx RX: Insulin Glargine [Lantus VIAL] 20 units SUB-Q QHS #30 units 12/11/19 03/29/22 Unknown Rx RX: lisinopriL [Zestril TAB] 5 mg PO QDAY #30 tablet 12/11/19 03/29/22 Unknown Rx carvediloL [Coreg] 3.125 mg PO BID #60 tablet 12/11/19 03/29/22 Unknown Rx Active Meds: Active Medications Acetaminophen (Acetaminophen 325 Mg Tab) 650 mg PO Q6H PRN PRN Reason: Pain, Mild (1-3) Aspirin (Aspirin Ec 325 Mg Tab) 325 mg PO QDAY [facility] Last Admin: 03/31/22 09:53 Dose: 325 mg Dextrose (Dextrose 50% In Water (25gm) 50 Ml Syringe) 50 ml IV Q30MIN PRN; Protocol PRN Reason: Hypoglycemia Furosemide (Furosemide 40 Mg/4 Ml Inj) 40 mg IV BID@0600,1800 [facility] Last Admin: 03/31/22 06:25 Dose: 40 mg Heparin Sodium (Porcine) (Heparin 5,000 Unit/1 Ml Vial) 5,000 unit SUB-Q Q8HR [facility] Last Admin: 03/31/22 06:24 Dose: 5,000 unit Insulin Human Lispro (Insulin Lispro 100 Unit/Ml) 0 unit SUB-Q ACHS [facility]; Protocol Last Admin: 03/31/22 11:35 Dose: 3 unit Lisinopril (Lisinopril 10 Mg Tab) 10 mg PO BID [facility] Last Admin: 03/31/22 09:53 Dose: 10 mg Metoprolol Tartrate (Metoprolol Tartrate 50 Mg Tab) 100 mg PO BID [facility] Last Admin: 03/31/22 09:54 Dose: 100 mg Morphine Sulfate (Morphine 4 Mg/1 Ml Inj) 2 mg IV Q5MIN PRN PRN Reason: Chest Pain unrelieved by NTG Nitroglycerin (Nitroglycerin 0.4 Mg Tab Subl) 0.4 mg SL Q5M PRN PRN Reason: Chest Pain Polyethylene Glycol (Polyethylene Glycol 3350 17 Gm Powder) 17 gm PO QDAY [facility] Sodium Chloride (Sodium Chloride 0.9% 10 Ml Flush Syringe) 10 ml IV PRN PRN PRN Reason: LINE FLUSH Last Admin: 03/30/22 21:10 Dose: 10 ml Tramadol HCl (Tramadol 50 Mg Tab) 50 mg PO Q6H PRN PRN Reason: Pain, Moderate (4-6) Physical Examination Vital signs: Vital Signs Temp Pulse Resp BP Pulse Ox 98.4 F 104 H 22 181/108 85 03/28/22 18:47 03/28/22 18:47 03/28/22 18:47 03/28/22 18:47 03/28/22 18:47 Results - Laboratory Findings CBC and BMP: 03/28/22 20:03 03/31/22 04:59 ABG ABG pH 7.291 pH Units (7.350-7.450) L 03/30/22 15:00 ABG pCO2 90.4 mm Hg 03/30/22 15:00 ABG pO2 129.6 mm Hg (80.0-90.0) H 03/30/22 15:00 ABG O2 Saturation 98.1 % (95.0-99.0) 03/30/22 15:00 Abnormal lab findings: Abnormal Labs 03/28/22 03/28/22 03/29/22 19:50 20:03 00:29 RBC 5.27 H Hct 46.2 H [place] % (Auto) 7.9 H ABG pH ABG pO2 ABG HCO3 ABG Base Excess Oxyhemoglobin Chloride Carbon Dioxide 34 H 34 H BUN 8 L Glucose 194 H 192 H POC Glucose Hemoglobin A1c Albumin 3.7 L 03/29/22 03/29/22 03/29/22 08:03 11:44 16:27 RBC Hct [place] % (Auto) ABG pH ABG pO2 ABG HCO3 ABG Base Excess Oxyhemoglobin Chloride Carbon Dioxide BUN Glucose POC Glucose 195 H 229 H 125 H Hemoglobin A1c Albumin 03/29/22 03/29/22 03/30/22 20:13 21:16 05:21 RBC Hct [place] % (Auto) ABG pH ABG pO2 ABG HCO3 ABG Base Excess Oxyhemoglobin Chloride 96.8 L Carbon Dioxide 40 H BUN Glucose 142 H POC Glucose 216 H 232 H Hemoglobin A1c Albumin 03/30/22 03/30/22 03/30/22 05:21 07:40 11:13 RBC Hct [place] % (Auto) ABG pH ABG pO2 ABG HCO3 ABG Base Excess Oxyhemoglobin Chloride Carbon Dioxide BUN Glucose POC Glucose 150 H 219 H Hemoglobin A1c 8.8 H Albumin 03/30/22 03/30/22 03/30/22 11:40 15:00 16:01 RBC Hct [place] % (Auto) ABG pH 7.273 L 7.291 L ABG pO2 129.6 H ABG HCO3 46.6 H 42.6 H ABG Base Excess 14.2 H 11.6 H Oxyhemoglobin 92.8 L 94.8 L Chloride Carbon Dioxide BUN Glucose POC Glucose 156 H Hemoglobin A1c Albumin 03/30/22 03/31/22 03/31/22 20:10 04:59 07:54 RBC Hct [place] % (Auto) ABG pH ABG pO2 ABG HCO3 ABG Base Excess Oxyhemoglobin Chloride Carbon Dioxide 38 H BUN Glucose 163 H POC Glucose 208 H 147 H Hemoglobin A1c Albumin
--- NOTE | 2022-03-31 16:36 | Progress Note ---
Assessment and Plan Assessment: Acute Respiratory Failure Hypercapnia Acute on Chronic HFrEF H/o NICMP (EF 40-45% in 2016, 25-30% in 2019, 50-55% in 2019, down to 25-30% this admission) Normal Coronaries (via cath 03/2015) Morbid Obesity [facility] FAZAL PAF (previously on Coumadin, now on Pradaxa per med rec) HTN DM2 Echo 03/29/2022 - EF 25 to 30%. LV is mildly dilated. Mild concentric LVH. Right ventricle mildly dilated. Right ventricle is mildly hypokinetic. Trace tricuspid regurgitation. [facility] 03/2015 - normal coronaries, non-ischemic cardiomyopathy. Plan: Recommend resumption of Pradaxa for AF/CVA prophylaxis if no contraindications. Unclear why it has been held. Continue IV diuresis with PRN repletion of electrolytes. Continue PO Lopressor 100mg BID. May be converted to Toprol XL at discharge. D ecrease Lisinopril to 5mg daily given borderline low BP on higher dose of BB. Plan for ischemic evaluation when clinically stable given significant reduction in LVEF noted on echo this admission. May be performed as an outpatient. Pt seen in conjunction with Dr. Hitchcock, who agrees with the assessment and plan of care. - Patient Problems (1) Acute on chronic HFrEF (heart failure with reduced ejection fraction) Current Visit: Yes Status: Acute Subjective Date of service: 03/31/22 Principal diagnosis: A/C HFrEF Interval history: No complaints. On 2L O2 via NC. Tele reviewed - SR with no further NSVT overnight or this AM. Objective Vital Signs Temp Pulse Resp BP Pulse Ox 03/31/22 12:15 98.4 F 76 18 109/72 94 03/31/22 09:05 100 03/31/22 08:42 97 03/31/22 07:52 97.4 F L 72 19 100/64 94 03/31/22 03:40 97.8 F 60 21 99/63 97 03/31/22 00:00 97 03/30/22 23:23 98.0 F 42 L 20 139/75 93 03/30/22 21:42 75 20 97 03/30/22 21:41 96 03/30/22 19:30 97.8 F 42 L 19 109/63 90 - Physical Examination General: Other (Somnolent) HEENT: Positive: Normocephaly Neck: Positive: neck supple, trachea midline. Negative: JVD/HJR Cardiac: Positive: Reg Rate and Rhythm, S1/S2 Lungs: Positive: Decreased Breath Sounds Neuro: Positive: Grossly Intact Abdomen: Positive: Soft Skin: Negative: Rash Extremities: Present: lower extr. pulses, edema (BLE), warm - Labs and Meds Comprehensive Metabolic Panel 03/31/22 Range/Units 04:59 Sodium 143 (137-145) mmol/L Potassium 4.2 (3.6-5.0) mmol/L Chloride 98.5 (98-107) mmol/L Carbon Dioxide 38 H (22-30) mmol/L BUN 14 (9-20) mg/dL Creatinine 0.8 (0.8-1.3) mg/dL Glucose 163 H (75-100) mg/dL Calcium 8.6 (8.4-10.2) mg/dL - Imaging and Cardiology EKG: report reviewed, image reviewed Echo: report reviewed Cardiac cath: report reviewed - Telemetry EKG Rhythm: Sinus Rhythm - EKG Sinus rhythms and dysrhythmias: sinus rhythm Ventricular dysrhythmias: ventricular premature com Repolarization changes or abnormalities: nonspecific abnormality, ST segment, and/or T wave
[2022-03-31] MEDS: POLYETHYLENE GLYCOL 3350 17 GM POWDER PO SCH (16:41)
[2022-03-31] MEDS: FAMOTIDINE 20 MG TAB PO SCH (21:12)
[2022-04-01] MEDS: HEPARIN 5,000 UNIT/1 ML VIAL SUB-Q SCH (05:21)
[2022-04-01] MEDS: FUROSEMIDE 40 MG/4 ML INJ IV SCH ×2 (05:21→17:49)
[2022-04-01] MEDS: INSULIN LISPRO 100 UNIT/ML SUB-Q SCH ×4 (07:45→21:25)
[2022-04-01] MEDS: ASPIRIN EC 325 MG TAB PO SCH (09:59)
[2022-04-01] MEDS: METOPROLOL TARTRATE 50 MG TAB PO SCH ×2 (09:59→21:17)
[2022-04-01] MEDS ORDERED: LISINOPRIL 5 MG TAB PO SCH (10:00)
[2022-04-01] MEDS: ENOXAPARIN 100 MG/1 ML INJ SUB-Q SCH ×2 (10:00→21:19)
[2022-04-01] MEDS: ENOXAPARIN 40 MG/0.4 ML INJ SUB-Q SCH ×2 (10:01→21:19)
[2022-04-01] MEDS: POLYETHYLENE GLYCOL 3350 17 GM POWDER PO SCH (10:02)
--- NOTE | 2022-04-01 11:27 | Progress Note ---
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 -TTE: EF 25-30% -continue lisinopril, metoprolol and lasix -strict I/Os, daily weights, cardiac diet -no need for ischemic evaluation at this time -Cardiology consulted, assistance appreciated #history of paroxysmal atrial fibrillation -patient prescribed pradaxa in past, has not used it in the last 6 months -discussed importance of taking anticoagulation to decrease risk of stroke -will start warfarin with lovenox bridging due to patient lack of insurance -continue BB -goal INR 2-3 #Metabolic alkalosis -likely secondary to CO2 retention from FAZAL -worsening likely due to diuretics #Obstructive sleep apnea #Obesity hypoventilation syndrome -patient reportedly uses CPAP at home -BiPAP at night while inpatient -patient morbidly obese, will require bariatric surgery evaluation at discharge #Type II Diabetes with hyperglycemia -patient reports taking metformin in the past -A1C 8.8% -POC glucose 129-209, will continue with sliding scale for now -will restart metformin at discharge #Hypertension-improved -Patient taking medications at home -BP controlled/low while inpatient -We will continue with GDMT for CHF #Morbid obesity -BMI 48.9% -Counseled patient on the importance of weight loss, incorporating exercise, and dietary changes (lean meats, fresh fruits and vegetables, and water intake). Patient expresses understanding. -Time: +15 min #Advanced care planning -Disease education conducted, care plan discussed, diagnoses discussed, prognosis discussed, and patient acknowledges understanding with care plan -Time: +30 min History Interval history: Patient tolerated BiPAP overnight. Currently in bed on NC @ 3LPM. We discussed current care plan. Patient continues to refuse ABGs. Discussed possible need for supplemental oxygen and [id number] cost. Patient has no complaints at this time. Hospitalist Physical - Physical exam Narrative exam: GENERAL: Obese. Sitting on the side of the bed in no acute distress HEENT: NC in place @ 2LPM NECK: Supple. CHEST/LUNGS: Distant breath sounds bilaterally. HEART/CARDIOVASCULAR: RRR. No murmur, rubs or gallops appreciated. ABDOMEN: +BS. NT/ND. SKIN: No rashes noted. NEURO: No focal motor deficit appreciated. EXTREMITIES: Chronic venous stasis changes, clubbing. Improving lower extremity edema. PSYCH: Cooperative. - Constitutional Vitals: Temp Pulse Resp BP Pulse Ox 98.3 F 76 18 126/82 97 04/01/22 07:35 04/01/22 07:35 04/01/22 07:35 04/01/22 07:35 04/01/22 09:36 General appearance: Present: no acute distress HEART Score - HEART Score EKG: Non-specific Age: 45-65 Risk factors: > 3 risk factors or hx of atherosclerotic disease Troponin: Troponin T < 0.010 ng/mL (0.00-0.029) 03/29/22 11:01 Troponin: < normal limit Results - Labs CBC & Chem 7: 03/28/22 20:03 03/31/22 04:59 Labs: Laboratory Last Values WBC 6.1 K/mm3 (4.5-11.0) 03/28/22 20:03 RBC 5.27 M/mm3 (3.65-5.03) H 03/28/22 20:03 Hgb 15.1 gm/dl (11.8-15.2) 03/28/22 20:03 Hct 46.2 % (35.5-45.6) H 03/28/22 20:03 MCV 88 fl (84-94) 03/28/22 20:03 MCH 29 pg (28-32) 03/28/22 20:03 MCHC 33 % (32-34) 03/28/22 20:03 RDW 15.1 % (13.2-15.2) 03/28/22 20:03 Plt Count 156 K/mm3 (140-440) 03/28/22 20:03 Lymph % (Auto) 20.6 % (13.4-35.0) 03/28/22 20:03 [place] % (Auto) 7.9 % (0.0-7.3) H 03/28/22 20:03 Eos % (Auto) 1.5 % (0.0-4.3) 03/28/22 20:03 Baso % (Auto) 0.8 % (0.0-1.8) 03/28/22 20:03 Lymph # (Auto) 1.3 K/mm3 (1.2-5.4) 03/28/22 20:03 [place] # (Auto) 0.5 K/mm3 (0.0-0.8) 03/28/22 20:03 Eos # (Auto) 0.1 K/mm3 (0.0-0.4) 03/28/22 20:03 Baso # (Auto) 0.0 K/mm3 (0.0-0.1) 03/28/22 20:03 Seg Neutrophils % 69.2 % (40.0-70.0) 03/28/22 20:03 Seg Neutrophils # 4.2 K/mm3 (1.8-7.7) 03/28/22 20:03 PT 14.3 Sec. (12.2-14.9) 04/01/22 09:20 INR 1.00 (0.87-1.13) 04/01/22 09:20 ABG pH 7.291 pH Units (7.350-7.450) L 03/30/22 15:00 ABG pCO2 90.4 mm Hg 03/30/22 15:00 ABG pO2 129.6 mm Hg (80.0-90.0) H 03/30/22 15:00 ABG HCO3 42.6 mmol/L (20.0-26.0) H 03/30/22 15:00 ABG O2 Saturation 98.1 % (95.0-99.0) 03/30/22 15:00 ABG O2 Content 19.9 (0.0-44) 03/30/22 15:00 ABG Base Excess 11.6 mmol/L (-2.0-3.0) H 03/30/22 15:00 ABG Hemoglobin 14.8 gm/dl (14.0-18.0) 03/30/22 15:00 ABG Carboxyhemoglobin 2.8 % (0.0-5.0) 03/30/22 15:00 ABG Methemoglobin 0.6 % (0.0-1.5) 03/30/22 15:00 Oxyhemoglobin 94.8 % (95.0-99.0) L 03/30/22 15:00 FiO2 40 % 03/30/22 15:00 Sodium 143 mmol/L (137-145) 03/31/22 04:59 Potassium 4.2 mmol/L (3.6-5.0) 03/31/22 04:59 Chloride 98.5 mmol/L (98-107) 03/31/22 04:59 Carbon Dioxide 38 mmol/L (22-30) H 03/31/22 04:59 Anion Gap 11 mmol/L 03/31/22 04:59 BUN 14 mg/dL (9-20) 03/31/22 04:59 Creatinine 0.8 mg/dL (0.8-1.3) 03/31/22 04:59 Estimated GFR > 60 ml/min 03/31/22 04:59 BUN/Creatinine Ratio 18 % 03/31/22 04:59 Glucose 163 mg/dL (75-100) H 03/31/22 04:59 POC Glucose 144 mg/dL (70-105) H 04/01/22 08:07 Hemoglobin A1c 8.8 % (4-6) H 03/30/22 05:21 Calcium 8.6 mg/dL (8.4-10.2) 03/31/22 04:59 Magnesium 1.90 mg/dL (1.7-2.3) 03/31/22 04:59 Total Bilirubin 0.80 mg/dL (0.1-1.2) 03/28/22 19:50 AST 14 units/L (5-40) 03/28/22 19:50 ALT 18 units/L (7-56) 03/28/22 19:50 Alkaline Phosphatase 85 units/L (35-129) 03/28/22 19:50 Troponin T < 0.010 ng/mL (0.00-0.029) 03/29/22 11:01 NT-Pro-B Natriuret Pep 790.5 pg/mL (0-900) 03/28/22 20:03 Total Protein 6.9 g/dL (6.3-8.2) 03/28/22 19:50 Albumin 3.7 g/dL (3.9-5) L 03/28/22 19:50 Albumin/Globulin Ratio 1.2 % 03/28/22 19:50 Bell/IV: Voiding Method Toilet Active Medications - Current Medications Current Medications: Generic Name Dose Route Start Last Admin Trade Name Freq PRN Reason Stop Dose Admin Acetaminophen 650 mg 03/29/22 00:09 Acetaminophen 325 Mg Tab PO Q6H PRN Pain, Mild (1-3) Aspirin 325 mg 03/30/22 10:00 04/01/22 09:59 Aspirin Ec 325 Mg Tab PO 325 mg QDAY SHAYAN Administration Dextrose 50 ml 03/29/22 00:09 Dextrose 50% In Water (25gm) 50 Ml Syringe IV Q30MIN PRN Hypoglycemia Protocol Enoxaparin Sodium 100 mg 04/01/22 10:00 04/01/22 10:00 Enoxaparin 100 Mg/1 Ml Inj SUB-Q 100 mg Q12HR SHAYAN Administration Protocol Enoxaparin Sodium 40 mg 04/01/22 10:00 04/01/22 10:01 Enoxaparin 40 Mg/0.4 Ml Inj SUB-Q 40 mg Q12HR SHAYAN Administration Famotidine 20 mg 03/31/22 22:00 03/31/22 21:12 Famotidine 20 Mg Tab PO 20 mg QHS SHAYAN Administration Furosemide 40 mg 03/29/22 06:00 04/01/22 05:21 Furosemide 40 Mg/4 Ml Inj IV 40 mg BID@0600,1800 SHAYAN Administration Insulin Human Lispro 0 unit 03/29/22 07:30 04/01/22 07:45 Insulin Lispro 100 Unit/Ml SUB-Q Not Given ACHS SHAYAN Protocol Lisinopril 5 mg 04/01/22 10:00 04/01/22 10:00 Lisinopril 5 Mg Tab PO 5 mg QDAY SHAYAN Administration Metoprolol Tartrate 100 mg 03/30/22 10:59 04/01/22 09:59 Metoprolol Tartrate 50 Mg Tab PO 100 mg BID SHAYAN Administration Morphine Sulfate 2 mg 03/29/22 00:09 Morphine 4 Mg/1 Ml Inj IV Q5MIN PRN Chest Pain unrelieved by NTG Nitroglycerin 0.4 mg 03/29/22 00:09 Nitroglycerin 0.4 Mg Tab Subl SL Q5M PRN Chest Pain Polyethylene Glycol 17 gm 03/31/22 14:00 04/01/22 10:02 Polyethylene Glycol 3350 17 Gm Powder PO Not Given QDAY SHAYAN Sodium Chloride 10 ml 03/29/22 00:09 03/30/22 21:10 Sodium Chloride 0.9% 10 Ml Flush Syringe IV 10 ml PRN PRN Administration LINE FLUSH Tramadol HCl 50 mg 03/29/22 00:09 Tramadol 50 Mg Tab PO Q6H PRN Pain, Moderate (4-6) Nutrition/Malnutrition Assess - Dietary Evaluation Nutrition/Malnutrition Findings: Nutrition Notes Start: 03/29/22 16:19 Freq: Status: Active Protocol: Document 03/29/22 16:19 ADRIAN (Rec: 03/29/22 16:33 ADRIAN [id number]) Nutrition Notes Need for Assessment generated from: MD Order,Education Initial or Follow up Brief Note Current Diagnosis Diabetes,Hypertension Other Pertinent Diagnosis SOB, HFpEF, Bilateral LE Swelling, Scrotum swelling, Atrial Fibrilation. Current Diet NPO (since 03/30 00:01). Height 5 ft 5 in Weight 131.9 kg [place] Body Weight (kg) 61.81 BMI 48.4 Intake Prior to Admission Good Weight change and time frame Pt denies having loss body weight [employer]. Weight Status Morbidly Obese Subjective/Other Information RD consult for nutrition education assessment. Pt currently on NPO. Procedure planned for 03/30 Stress Test, NPO required. Pt is on Room Air, O2 saturation @ 95%, according to Vital Signs notes. Pt still in critical condition , not a candidate for Nutrition Education at the time, will assess feasibility on F/U. Percent of energy/protein needs met: Pt currently on NPO. Nutrition Intervention Follow-Up By: 03/31/22 Additional Comments Nutrition education will be provided on F/U, if feasible. Continue monitoring food tolerance, %PO intake of meals , and BM.
--- NOTE | 2022-04-01 12:37 | Consultation ---
DATE OF CONSULTATION: 03/30/2022 PULMONARY CONSULT NOTE CONSULTING PHYSICIAN: Dr. Jackson. REASON FOR CONSULTATION: Acute on chronic hypercapnic respiratory failure with CO2 narcosis and altered mental status. CHIEF COMPLAINT AND HISTORY OF PRESENT ILLNESS: As follows: The patient is a 51-year-old morbidly obese male with past medical history significant amongst other things for a diagnosis of congestive heart failure and hypertension, came into the Emergency Room complaining of shortness of breath and chest pain. It had been going on for a few days. He complained of the chest pain/pressure, being worse with exertion. He also noted progressive swelling of his scrotum and his lower extremities. He denied fevers, chills, headaches, dizziness, nausea, vomiting or abdominal pain. He admitted that he had not been compliant with his medications as he was unable to afford them. In the Emergency Room, he was evaluated. A chest x-ray reportedly was negative. He was admitted to the medical telemetry floor for chest pain workup. However, yesterday on reexamination, he was noticed to be very lethargic, difficult to arouse and a stat arterial blood gas was done that showed hypercapnic respiratory acidosis with initial pH of about 7.27 and a pCO2 as high as 103. We are asked to assist with management. When I stopped by to see him, he was resting in bed, was on the bilevel positive airway pressure ventilation therapy had just been placed. However, he was not breathing over the set rate, I believe at that time it was around 16. He was also not getting a good tidal volumes and minute ventilation was running around 5-6 liters per minute. I do not have any history of vomiting or overt aspiration. The patient's tobacco use/abuse history was unknown. The above is as much of the history of presentation as I have. PAST MEDICAL HISTORY: Again, diabetes, atrial fibrillation, obstructive sleep apnea, morbid obesity, history of congestive heart failure, history of hypertension. PAST SURGICAL HISTORY: Unknown. MEDICATIONS: He was on at the time I stopped by to see him, according to the medication administration record included the following: He had been on Tylenol 650 mg p.o. q. 6 hours p.r.n. mild pain or fevers, aspirin 325 mg p.o. daily, Lasix 40 mg IV b.i.d., heparin 5000 units subcutaneous q. 8 hours, insulin via sliding scale, lisinopril 10 mg p.o. b.i.d., metoprolol 100 mg p.o. b.i.d., sublingual nitroglycerin 0.4 mg every 5 minutes p.r.n. chest pain, tramadol 50 mg p.o. q. 6 hours p.r.n. moderate pain. ALLERGIES: No known drug allergies. DIET: Morbidly obese, acute weight loss or gain history is unknown. FAMILY AND SOCIAL HISTORY: Apparently lives in the community. Alcohol, tobacco or illicit drug use or abuse history is unknown. He had denied in the Emergency Room. FAMILY HISTORY: Unknown. REVIEW OF SYSTEMS: Unobtainable secondary to the patient's medical and mental condition. Since he has been in the hospital, no gross hematochezia or melena, no gross hematuria, no hematemesis, no hemoptysis, no witnessed seizures. Review of systems otherwise unobtainable or as in body of history above. PHYSICAL EXAMINATION: VITAL SIGNS: On initial presentation to the Emergency Room, he was afebrile, temperature was 98.4 degrees Fahrenheit, pulse of 104, respiratory rate of 22, blood pressure 181/108, O2 sats were 85%, inspired oxygen concentration at that time was not recorded. When I stopped by to see him, he was on the bilevel positive airway pressure control machine with the setting IPAP 14, EPAP 6, rate of 14. GENERAL: Again, he is a middle-aged, morbidly obese male. Normocephalic, atraumatic on the BiPAP machine without significant dyssynchrony. HEAD, EYES, EARS, NOSE AND THROAT: He had the BiPAP full face mask. There was no gross jugular venous distention, no thyromegaly. Grossly, there were no palpable lymph nodes in the supraclavicular or submandibular lymph node chains. He was anicteric. There was no conjunctival erythema. Grossly, there were no palpable lymph nodes in the supraclavicular or submandibular lymph node chains. LUNGS: Auscultation of both lung gibbs significant only for diminished bilateral breath sounds, no wheezing. HEART: Sounds 1 and 2 are heard. There were regular rate and rhythm at the time of my evaluation without overt rubs or murmurs. ABDOMEN: Soft, full, protuberant. Bowel sounds are positive, nontender, no palpable hepatosplenomegaly. EXTREMITIES: Without overt digital clubbing or cyanosis. He had trace bilateral bipedal pitting edema. Pedal pulses are 2+ bilaterally. NEUROLOGIC: Pupils were equal, round, about 3 mm, reactive to light. Extraocular muscle movements could not be assessed. He was lethargic on the BiPAP machine. He did have spontaneous withdrawal movements to all extremities, but was not following commands at the time I saw him. SKIN: Normal turgor in the areas I examined without overt cellulitis or rash. Please see the wound care nurses' notes and registered nurse's notes for full description of his skin. PSYCHIATRIC: Mood and affect were flat. He did not have intact judgment and insight. LABORATORY DATA: From my review are as follows: Admission white cell count 6100, hemoglobin 15.1, hematocrit 46.2, platelet count 156. Serum sodium was 141, potassium 3.9, chloride 100, bicarbonate 34, BUN 9, creatinine 0.8, glucose 194. Liver function test within normal limits. Troponin within normal limits. Arterial blood gas had shown a pH of 7.27, pCO2 of 103, pO2 of 86 that was on 4 liters nasal cannula. No microbiology studies for my review. A chest x-ray has been reviewed. It shows some element of actually hyperinflation. He does have overactive gross cardiomegaly. I cannot rule out small bilateral pleural effusions, no pneumothorax, no gross bony fracture. There is some enlargement of the right main pulmonary artery trunk, indeed consistent with possible pulmonary hypertension. He also had a CT angiogram done with pretty decent contrast phase timing, but not the best image. The long windows show left basilar atelectasis, patchy ground glass opacification, actually small lung volumes, no gross pneumothorax, no gross bony fractures. A 2D echocardiogram was done, which showed an ejection fraction of 25-30% with mild diastolic dysfunction, no RV systolic pressures were given. ASSESSMENT: 1. Acute on chronic hypercarbic and likely hypoxemic respiratory failure. 2. Acute encephalopathy secondary to hypercapnia. 3. Acute congestive heart failure exacerbation. 4. Morbid obesity. 5. History of diabetes. 6. Chest pain. 7. Hypertension. 8. Obesity hypoventilation syndrome. 9. Possible obstructive sleep apnea. PLAN: I will leave him on bilevel positive ventilation therapy. I am going to increase the IPAP to 24, reduce the EPAP to 8 and increased the set rate to 30 to increase his minute ventilation. I do expect him to improve, I will repeat the arterial blood gas in 2 hours. Minute volumes have gone as high as 11 while I am watching in the, 11 liters per minute. I have also instructed his nurse to continue to stimulate him to get some spontaneous respiration from himself until the narcosis is much better. Oxygen will be weaned to keep sats greater than or equal to about 90%. Aspiration precautions will be maintained. I do feel he will benefit from continuing gentle diuresis. He will be placed on GI prophylaxis with Pepcid. He is on DVT prophylaxis. Acute coronary syndrome workup will be deferred to Cardiology. Case management should help him with his medications. Flu and pneumonia vaccination will be addressed per protocol. Thank you very much for the consult. We will follow along and make further recommendations as picture progresses/becomes clearer. TID: [id number] RECEIPT: [id number] HEBERT/PATTI/DOMINIC
--- NOTE | 2022-04-01 14:02 | Progress Note ---
Assessment and Plan Acute on chronic hypercarbic & hypoxemic respiratory failure Obesity hypoventilation syndrome Possible obstructive sleep apnea Acute encephalopathy Acute congestive heart failure exacerbation Morbid obesity DM II Chest pain Hypertension - no new issues today, continue care as below; - BIPAP scheduled qhs with prn daytime use - continue diuresis while following electrolytes - continue to wean supplemental oxygen to keep O2 sats > 90% - continue Bronchodilators (ИРИНА & LABA) with pulm hygiene per RT - continue systemic steroids with slow taper - continue inhaled corticosteroids - continue to avoid nephrotoxins, renally dose all medications - continue mobility protocols to prevent pressure ulcers - PT/OT as tolerated - Wound care per RN/WCT - continue accuchecks with glycemic control per SSI for target blood glucose < 180 mg/dL - Smoking cessation strongly counseled at the bedside - home oxygen evaluation at discharge - GI & VTE prophylaxis - Flu & pneumovax per protocol - Pulmonary out patient follow up for PFTs and optimization of respiratory status - continue other care per attending / other consultants - prn analgesia per pain score ... re-evaluate in am & prn Subjective Date of service: 04/01/22 Principal diagnosis: Acute on chronic hypercarbic & hypoxemic resp failure; OHS/FAZAL; AE-CHF; AMS Interval history: Patient is seen today for: Acute on chronic hypercarbic & hypoxemic respiratory failure; OHS / FAZAL; AE-CHF; Acute encephalopathy; Morbid obesity; Chest pain Seen and examined at bedside; 24hour events reviewed; nursing and respiratory care staff consulted; no adverse overnight events reported to me; resting in bed; looks and feels better; no new issues today; says he is tolerating BIPAP well Objective Vital Signs - 12hr 04/01/22 04/01/22 04/01/22 04:24 04:44 07:35 Temperature 98.2 F 98.3 F Pulse Rate 71 67 76 Respiratory 20 20 18 Rate Blood Pressure 131/82 126/82 O2 Sat by Pulse 98 94 Oximetry 04/01/22 09:36 Temperature Pulse Rate Respiratory Rate Blood Pressure O2 Sat by Pulse 97 Oximetry Constitutional: no acute distress Eyes: non-icteric ENT: oropharynx moist Neck: supple, no lymphadenopathy, no JVD, other (large circumference) Effort: mildly labored Ascultation: Bilateral: clear, diminished breath sounds Percussion: Bilateral: not dull Cardiovascular: regular rate and rhythm Gastrointestinal: normoactive bowel sounds, soft, non-tender, non-distended Integumentary: normal Extremities: no cyanosis, pulses normal, no ischemia or petechiae, edema Neurologic: non-focal exam, pupils equal and round, CN II-XII normal, motor strength normal and Psychiatric: mood appropriate, affect normal CBC and BMP: 03/28/22 20:03 03/31/22 04:59 ABG, PT/INR, D-dimer: ABG ABG pH 7.291 pH Units (7.350-7.450) L 03/30/22 15:00 ABG pCO2 90.4 mm Hg 03/30/22 15:00 ABG pO2 129.6 mm Hg (80.0-90.0) H 03/30/22 15:00 ABG O2 Saturation 98.1 % (95.0-99.0) 03/30/22 15:00 PT/INR, D-dimer PT 14.3 Sec. (12.2-14.9) 04/01/22 09:20 INR 1.00 (0.87-1.13) 04/01/22 09:20 Abnormal lab findings: Abnormal Labs 03/28/22 03/28/22 03/29/22 19:50 20:03 00:29 RBC 5.27 H Hct 46.2 H [place] % (Auto) 7.9 H ABG pH ABG pO2 ABG HCO3 ABG Base Excess Oxyhemoglobin Chloride Carbon Dioxide 34 H 34 H BUN 8 L Glucose 194 H 192 H POC Glucose Hemoglobin A1c Albumin 3.7 L 03/29/22 03/29/22 03/29/22 08:03 11:44 16:27 RBC Hct [place] % (Auto) ABG pH ABG pO2 ABG HCO3 ABG Base Excess Oxyhemoglobin Chloride Carbon Dioxide BUN Glucose POC Glucose 195 H 229 H 125 H Hemoglobin A1c Albumin 03/29/22 03/29/22 03/30/22 20:13 21:16 05:21 RBC Hct [place] % (Auto) ABG pH ABG pO2 ABG HCO3 ABG Base Excess Oxyhemoglobin Chloride 96.8 L Carbon Dioxide 40 H BUN Glucose 142 H POC Glucose 216 H 232 H Hemoglobin A1c Albumin 03/30/22 03/30/22 03/30/22 05:21 07:40 11:13 RBC Hct [place] % (Auto) ABG pH ABG pO2 ABG HCO3 ABG Base Excess Oxyhemoglobin Chloride Carbon Dioxide BUN Glucose POC Glucose 150 H 219 H Hemoglobin A1c 8.8 H Albumin 03/30/22 03/30/22 03/30/22 11:40 15:00 16:01 RBC Hct [place] % (Auto) ABG pH 7.273 L 7.291 L ABG pO2 129.6 H ABG HCO3 46.6 H 42.6 H ABG Base Excess 14.2 H 11.6 H Oxyhemoglobin 92.8 L 94.8 L Chloride Carbon Dioxide BUN Glucose POC Glucose 156 H Hemoglobin A1c Albumin 03/30/22 03/31/22 03/31/22 20:10 04:59 07:54 RBC Hct [place] % (Auto) ABG pH ABG pO2 ABG HCO3 ABG Base Excess Oxyhemoglobin Chloride Carbon Dioxide 38 H BUN Glucose 163 H POC Glucose 208 H 147 H Hemoglobin A1c Albumin 03/31/22 03/31/22 03/31/22 12:16 16:25 20:49 RBC Hct [place] % (Auto) ABG pH ABG pO2 ABG HCO3 ABG Base Excess Oxyhemoglobin Chloride Carbon Dioxide BUN Glucose POC Glucose 209 H 129 H 157 H Hemoglobin A1c Albumin 04/01/22 04/01/22 08:07 11:33 RBC Hct [place] % (Auto) ABG pH ABG pO2 ABG HCO3 ABG Base Excess Oxyhemoglobin Chloride Carbon Dioxide BUN Glucose POC Glucose 144 H 219 H Hemoglobin A1c Albumin Allied health notes reviewed: nursing
[2022-04-01] MEDS ORDERED: WARFARIN 5 MG TAB PO SCH (17:00)
--- NOTE | 2022-04-01 18:09 | Progress Note ---
Assessment and Plan Assessment: Acute Respiratory Failure Hypercapnia Acute on Chronic HFrEF H/o NICMP (EF 40-45% in 2016, 25-30% in 2019, 50-55% in 2020, down to 25-30% this admission) NSVT Normal Coronaries (via cath 03/2015) Morbid Obesity [facility] FAZAL PAF (previously on Coumadin, now on Pradaxa per med rec) HTN DM2 Echo 03/29/2022 - EF 25 to 30%. LV is mildly dilated. Mild concentric LVH. Right ventricle mildly dilated. Right ventricle is mildly hypokinetic. Trace tricuspid regurgitation. [facility]2015 - normal coronaries, non-ischemic cardiomyopathy. Plan: OAC was discussed at length with pt at bedside. He states he has been unable to obtain Pradaxa d/t insurance issues. As such, Coumadin has been resumed as per Primary. Pt is agreeable. Continue IV diuresis with PRN repletion of electrolytes. Possible transition to PO diuretics in AM. Continue PO Lopressor 100mg BID. May be converted to Toprol XL at discharge. Increase Lisinopril to 10mg daily. Plan for ischemic evaluation when clinically stable given significant reduction in LVEF noted on echo this admission. May be performed as an outpatient. Hesitant to order LifeVest due complex issues with compliance in the inpatient and outpatient settings. 40 min total pt care time, over half of which was dedicated to counseling pt on his cardiac diagnoses and discussing lifestyle modifications (incl sodium and fluid restrictions). All questions answered. Pt verbalized understanding. Of note, pt is requesting Case Mgmt assistance with medical transport prior to discharge. Pt seen in conjunction with Dr. Hitchcock, who agrees with the assessment and plan of care. - Patient Problems (1) Acute on chronic HFrEF (heart failure with reduced ejection fraction) Current Visit: Yes Status: Acute Subjective Date of service: 04/01/22 Principal diagnosis: HFrEF Interval history: O2 sats drop with exertion but he denies any dyspnea. Edema continues to improve. Tele reviewed - SR with PACs & PVCs, 38bt run of VT noted overnight per documentation. Objective Vital Signs Temp Pulse Resp BP Pulse Ox 04/01/22 16:13 97.9 F 73 18 132/75 89 04/01/22 12:00 96 04/01/22 11:55 98.5 F 77 18 130/87 94 04/01/22 09:36 97 05/15/22 07:35 98.3 F 76 18 126/82 94 04/01/22 04:44 98.2 F 67 20 131/82 98 04/01/22 04:24 71 20 04/01/22 00:36 98.6 F 69 20 106/66 94 04/01/22 00:04 68 20 99 03/31/22 22:11 96 03/31/22 22:00 72 03/31/22 21:42 95 03/31/22 20:19 98.4 F 75 20 116/68 96 - Physical Examination General: No Apparent Distress HEENT: Positive: EOMI, Normocephaly Neck: Positive: neck supple, trachea midline. Negative: JVD/HJR Cardiac: Positive: Reg Rate and Rhythm, S1/S2 Lungs: Positive: Decreased Breath Sounds Neuro: Positive: Grossly Intact Abdomen: Positive: Soft Skin: Negative: Rash Extremities: Present: edema (BLE), warm - Labs and Meds Coagulation 04/01/22 Range/Units 09:20 PT 14.3 (12.2-14.9) Sec. INR 1.00 (0.87-1.13) - Imaging and Cardiology EKG: report reviewed, image reviewed Echo: report reviewed Cardiac cath: report reviewed - Telemetry EKG Rhythm: Sinus Rhythm - EKG Sinus rhythms and dysrhythmias: sinus rhythm Ventricular dysrhythmias: ventricular premature com Repolarization changes or abnormalities: nonspecific abnormality, ST segment, and/or T wave - Allied health notes Allied health notes reviewed: nursing
[2022-04-01] MEDS: FAMOTIDINE 20 MG TAB PO SCH (21:17)
[2022-04-02 05:27] LABS: INR 0.98 (0.87-1.13)
[2022-04-02 05:34] LABS: BUN/Creatinine Ratio 17; Blood Urea Nitrogen 15 mg/dL (9-20); Hemolysis Index 7
[2022-04-02] MEDS: FUROSEMIDE 40 MG/4 ML INJ IV SCH ×2 (06:41→17:16)
--- NOTE | 2022-04-02 07:59 | Progress Note ---
Assessment and Plan 51-year-old -[place] male with known history of hypertension, diabetes mellitus, congestive heart failure Atrial fibrillation, Sleep apnea presenting to the emergency room today complaining of shortness of breath and chest pain. Shortness of breath is said to have been ongoing over the past few days. He has also been having mid sternal chest pressure. Symptoms are said to be worse on exertion. Patient also indicates he has been having progressive swelling of his scrotal area and also in his lower extremities. He denies any fever or chills, no headache or dizziness, no nausea vomiting and no abdominal pain. Patient however indicates that he has not been quite compliant with his medication as he has not been able to afford them due to insurance related issues. Work-up in the emergency room , chest x-ray shows no acute findings. Labs were unremarkable. Patient being admitted for chest pain evaluation. Patient awake, standing by the side of the bed. Patient is on 3 litres O2, O2 saturation running 93%. BIPAP stand by in the room. No acute respiratory distress. Patient afebrile. No leukocytosis. Blood pressure 119/75. Pulse 71, Respirations 20. CTA of chest 03/28/[address] evidence for pulmonary embolism. There is prominence of the main pulmonary artery suggesting pulmonary arterial hypertension. Scattered groundglass attenuation throughout the lungs. This nonspecific may be secondary to small airways disease versus atypical infectious process versus interstitial lung disease . Patient presently on S/C Lovenox, Famotidine. PO Warfarin. - Patient Problems (1) Acute on chronic HFrEF (heart failure with reduced ejection fraction) Current Visit: Yes Status: Acute Plan to address problem: Management as per cardiology. (2) Chest pain Current Visit: Yes Status: Acute Plan to address problem: Management as per cardiology. (3) Shortness of breath Current Visit: Yes Status: Acute Plan to address problem: O2 3 litres via nasal canula. BIPAP 18/8, rate 12, FIO2 36%. (4) Acute kidney injury Current Visit: No Status: Acute Plan to address problem: Management as per nephrology. (5) Atrial fibrillation Current Visit: No Status: Acute Qualifiers: Atrial fibrillation type: permanent Qualified Code(s): I48.21 - Permanent atrial fibrillation Plan to address problem: Patient is on warfarin. Management as per cardiology. (6) Diabetes mellitus with hyperglycemia Current Visit: No Status: Acute Plan to address problem: Management as per primary care. (7) GERD (gastroesophageal reflux disease) Current Visit: No Status: Acute Plan to address problem: Patient is on Famotidine. (8) HTN (hypertension) Current Visit: No Status: Chronic Plan to address problem: Management as per primary care. (9) History of atrial fibrillation Current Visit: No Status: Chronic (10) Nonischemic cardiomyopathy Current Visit: No Status: Chronic Plan to address problem: Management as per cardiology. (11) Sleep apnea Current Visit: No Status: Chronic Plan to address problem: Recommend to loose weight CPAP at home. BIPAP during time during hospital course. Maintain sleep hygiene. Recommend not drive with sleepiness. Avoid alcohol, sedatives and Narcotics. (12) Obesity hypoventilation syndrome Current Visit: Yes Status: Acute Plan to address problem: Recommend to loose weight CPAP at home. BIPAP during time during hospital course and during sleeping episodes. Maintain sleep hygiene. Recommend not drive with sleepiness. Avoid alcohol, sedatives and Narcotics. Subjective Date of service: 04/02/22 Principal diagnosis: HFrEF Interval history: 51-year-old -[place] male with known history of hypertension, diabetes mellitus, congestive heart failure Atrial fibrillation, Sleep apnea presenting to the emergency room today complaining of shortness of breath and chest pain. Shortness of breath is said to have been ongoing over the past few days. He has also been having mid sternal chest pressure. Symptoms are said to be worse on exertion. Patient also indicates he has been having progressive swelling of his scrotal area and also in his lower extremities. He denies any fever or chills, no headache or dizziness, no nausea vomiting and no abdominal pain. Patient however indicates that he has not been quite compliant with his medication as he has not been able to afford them due to insurance related issues. Work-up in the emergency room , chest x-ray shows no acute findings. Labs were unremarkable. Patient being admitted for chest pain evaluation. Patient awake, standing by the side of the bed. Patient is on 3 litres O2, O2 saturation running 93%. BIPAP stand by in the room. No acute respiratory distress. Patient afebrile. No leukocytosis. Blood pressure 119/75. Pulse 71, Respirations 20. CTA of chest 03/28/[address] evidence for pulmonary embolism. There is prominence of the main pulmonary artery suggesting pulmonary arterial hypertension. Scattered groundglass attenuation throughout the lungs. This nonspecific may be secondary to small airways disease versus atypical infectious process versus interstitial lung disease . Patient presently on S/C Lovenox, Famotidine. PO Warfarin. Objective Vital Signs - 12hr 04/01/22 04/01/22 04/01/22 20:10 20:53 23:00 Temperature 98.5 F 98.7 F Pulse Rate 41 L 73 76 Respiratory 19 19 Rate Blood Pressure 116/68 106/64 O2 Sat by Pulse 96 93 Oximetry 04/02/22 04/02/22 04/02/22 00:00 01:10 03:38 Temperature 98.4 F Pulse Rate 69 46 L Respiratory 18 20 Rate Blood Pressure 125/75 O2 Sat by Pulse 99 97 92 Oximetry 04/02/22 03:56 Temperature Pulse Rate 70 Respiratory 18 Rate Blood Pressure O2 Sat by Pulse 100 Oximetry Constitutional: no acute distress, alert Eyes: non-icteric ENT: oropharynx moist Neck: supple, no lymphadenopathy, no JVD, other (large circumference) Effort: mildly labored Ascultation: Bilateral: diminished breath sounds Percussion: Bilateral: not dull Cardiovascular: irregular rhythm Gastrointestinal: normoactive bowel sounds, soft, non-tender, non-distended Integumentary: normal Extremities: no cyanosis, pulses normal, no ischemia or petechiae, edema Neurologic: non-focal exam, pupils equal and round, CN II-XII normal, motor strength normal and Psychiatric: mood appropriate, affect normal CBC and BMP: 03/28/22 20:03 04/02/22 04:50 ABG, PT/INR, D-dimer: ABG ABG pH 7.291 pH Units (7.350-7.450) L 03/30/22 15:00 ABG pCO2 90.4 mm Hg 03/30/22 15:00 ABG pO2 129.6 mm Hg (80.0-90.0) H 03/30/22 15:00 ABG O2 Saturation 98.1 % (95.0-99.0) 03/30/22 15:00 PT/INR, D-dimer PT 14.1 Sec. (12.2-14.9) 04/02/22 04:50 INR 0.98 (0.87-1.13) 04/02/22 04:50 Abnormal lab findings: Abnormal Labs 03/28/22 03/28/22 03/29/22 19:50 20:03 00:29 RBC 5.27 H Hct 46.2 H [place] % (Auto) 7.9 H ABG pH ABG pO2 ABG HCO3 ABG Base Excess Oxyhemoglobin Chloride Carbon Dioxide 34 H 34 H BUN 8 L Glucose 194 H 192 H POC Glucose Hemoglobin A1c Albumin 3.7 L 03/29/22 03/29/22 03/29/22 08:03 11:44 16:27 RBC Hct [place] % (Auto) ABG pH ABG pO2 ABG HCO3 ABG Base Excess Oxyhemoglobin Chloride Carbon Dioxide BUN Glucose POC Glucose 195 H 229 H 125 H Hemoglobin A1c Albumin 03/29/22 03/29/22 03/30/22 20:13 21:16 05:21 RBC Hct [place] % (Auto) ABG pH ABG pO2 ABG HCO3 ABG Base Excess Oxyhemoglobin Chloride 96.8 L Carbon Dioxide 40 H BUN Glucose 142 H POC Glucose 216 H 232 H Hemoglobin A1c Albumin 03/30/22 03/30/22 03/30/22 05:21 07:40 11:13 RBC Hct [place] % (Auto) ABG pH ABG pO2 ABG HCO3 ABG Base Excess Oxyhemoglobin Chloride Carbon Dioxide BUN Glucose POC Glucose 150 H 219 H Hemoglobin A1c 8.8 H Albumin 03/30/22 03/30/22 03/30/22 11:40 15:00 16:01 RBC Hct [place] % (Auto) ABG pH 7.273 L 7.291 L ABG pO2 129.6 H ABG HCO3 46.6 H 42.6 H ABG Base Excess 14.2 H 11.6 H Oxyhemoglobin 92.8 L 94.8 L Chloride Carbon Dioxide BUN Glucose POC Glucose 156 H Hemoglobin A1c Albumin 03/30/22 03/31/22 03/31/22 20:10 04:59 07:54 RBC Hct [place] % (Auto) ABG pH ABG pO2 ABG HCO3 ABG Base Excess Oxyhemoglobin Chloride Carbon Dioxide 38 H BUN Glucose 163 H POC Glucose 208 H 147 H Hemoglobin A1c Albumin 03/31/22 03/31/22 03/31/22 12:16 16:25 20:49 RBC Hct [place] % (Auto) ABG pH ABG pO2 ABG HCO3 ABG Base Excess Oxyhemoglobin Chloride Carbon Dioxide BUN Glucose POC Glucose 209 H 129 H 157 H Hemoglobin A1c Albumin 04/01/22 04/01/22 04/01/22 08:07 11:33 15:37 RBC Hct [place] % (Auto) ABG pH ABG pO2 ABG HCO3 ABG Base Excess Oxyhemoglobin Chloride Carbon Dioxide BUN Glucose POC Glucose 144 H 219 H 186 H Hemoglobin A1c Albumin 04/01/22 04/02/22 04/02/22 21:28 04:50 07:40 RBC Hct [place] % (Auto) ABG pH ABG pO2 ABG HCO3 ABG Base Excess Oxyhemoglobin Chloride 97.2 L Carbon Dioxide 41 H* BUN Glucose 140 H POC Glucose 170 H 139 H Hemoglobin A1c Albumin Chest x-ray: report reviewed, image reviewed CT scan - chest: report reviewed, image reviewed Additional Studies: XR chest 1V ap 03/28/22 INDICATION / CLINICAL INFORMATION: SOB COMPARISON: 12/09/19 FINDINGS: SUPPORT DEVICES: None. HEART / MEDIASTINUM: Cardiomegaly. LUNGS / PLEURA: Pulmonary vascular congestion. Costophrenic sulci are sharp. No pneumothorax. ADDITIONAL FINDINGS: No significant additional findings. IMPRESSION: 1. No acute findings. CTA CHEST WITH CONTRAST 03/28/22 INDICATION / CLINICAL INFORMATION: SOB. TECHNIQUE: Axial CT images were obtained through the chest after injection of 100 cc of Omnipaque 350 IV contrast. 3 plane MIP and/or 3D reconstructions were produced. All CT scans at this location are performed using CT dose reduction for ALARA by means of automated exposure control. COMPARISON: Chest radiograph from earlier in the day. FINDINGS: PULMONARY ARTERIES: No pulmonary emboli. The pulmonary artery is dilated measuring up to 4.4 cm. THORACIC AORTA: Mild atherosclerotic calcification without acute abnormality. HEART: Cardiomegaly CORONARY ARTERY CALCIFICATION: Mild. MEDIASTINUM / GLYNN: Scattered shotty mediastinal lymph nodes. PLEURA: There is a trace left pleural effusion. No pneumothorax. LUNGS: There are scattered groundglass densities throughout the bilateral lungs. No pulmonary mass or suspicious pulmonary nodule. There is atelectasis in the medial left lower lobe. ADDITIONAL FINDINGS: None. UPPER ABDOMEN: No acute findings. SKELETAL STRUCTURES: Scattered degeneration. IMPRESSION: 1. No CT evidence for pulmonary embolism. 2. There is prominence of the main pulmonary artery suggesting pulmonary arterial hypertension. 3. Scattered groundglass attenuation throughout the lungs. This nonspecific may be secondary to small airways disease versus atypical infectious process versus interstitial lung disease Allied health notes reviewed: nursing
[2022-04-02] MEDS: INSULIN LISPRO 100 UNIT/ML SUB-Q SCH ×4 (08:07→22:06)
[2022-04-02] MEDS: METOPROLOL TARTRATE 50 MG TAB PO SCH ×2 (09:21→21:59)
[2022-04-02] MEDS: LISINOPRIL 10 MG TAB PO SCH (09:22)
[2022-04-02] MEDS: POLYETHYLENE GLYCOL 3350 17 GM POWDER PO SCH (09:24)
[2022-04-02] MEDS: ASPIRIN EC 325 MG TAB PO SCH (09:24)
[2022-04-02] MEDS: ENOXAPARIN 100 MG/1 ML INJ SUB-Q SCH ×2 (09:27→21:58)
[2022-04-02] MEDS: ENOXAPARIN 40 MG/0.4 ML INJ SUB-Q SCH ×2 (09:28→21:58)
--- NOTE | 2022-04-02 12:04 | Progress Note ---
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 -TTE: EF 25-30% -continue lisinopril, metoprolol and lasix -strict I/Os, daily weights, cardiac diet -no need for ischemic evaluation at this time -Cardiology consulted, assistance appreciated #history of paroxysmal atrial fibrillation -patient prescribed pradaxa in past, has not used it in the last 6 months -discussed importance of taking anticoagulation to decrease risk of stroke -will start warfarin with lovenox bridging due to patient lack of insurance -continue BB -goal INR 2-3 #Metabolic alkalosis -likely secondary to CO2 retention from FAZAL -worsening likely due to diuretics #Obstructive sleep apnea #Obesity hypoventilation syndrome -patient reportedly uses CPAP at home -BiPAP at night while inpatient -patient morbidly obese, will require bariatric surgery evaluation at discharge #Type II Diabetes with hyperglycemia-improving -patient reports taking metformin in the past -A1C 8.8% -will continue with sliding scale for now -will restart metformin at discharge #Hypertension-improved -Patient taking medications at home -BP controlled/low while inpatient -We will continue with GDMT for CHF #Morbid obesity -BMI 48.9% -Counseled patient on the importance of weight loss, incorporating exercise, and dietary changes (lean meats, fresh fruits and vegetables, and water intake). Patient expresses understanding. -Time: +15 min #Advanced care planning -Disease education conducted, care plan discussed, diagnoses discussed, prognosis discussed, and patient acknowledges understanding with care plan -Time: +30 min History Interval history: Currently in bed on NC @ 3LPM. Discussed need for continued hospitalization until INR is therapeutic. Patient agrees. He currently has no complaints at this time. Hospitalist Physical - Physical exam Narrative exam: GENERAL: Obese. Sitting on the side of the bed in no acute distress HEENT: NC in place @ 3LPM NECK: Supple. CHEST/LUNGS: Distant breath sounds bilaterally. HEART/CARDIOVASCULAR: RRR. No murmur, rubs or gallops appreciated. ABDOMEN: +BS. NT/ND. SKIN: No rashes noted. NEURO: No focal motor deficit appreciated. EXTREMITIES: Chronic venous stasis changes, clubbing. Improving lower extremity edema. PSYCH: Cooperative. - Constitutional Vitals: Temp Pulse Resp BP Pulse Ox 97.7 F 63 18 119/75 97 04/02/22 07:42 04/02/22 10:00 04/02/22 10:00 04/02/22 07:42 04/02/22 10:00 General appearance: Present: no acute distress HEART Score - HEART Score EKG: Non-specific Age: 45-65 Risk factors: > 3 risk factors or hx of atherosclerotic disease Troponin: Troponin T < 0.010 ng/mL (0.00-0.029) 03/29/22 11:01 Troponin: < normal limit Results - Labs CBC & Chem 7: 03/28/22 20:03 04/02/22 04:50 Labs: Laboratory Last Values WBC 6.1 K/mm3 (4.5-11.0) 03/28/22 20:03 RBC 5.27 M/mm3 (3.65-5.03) H 03/28/22 20:03 Hgb 15.1 gm/dl (11.8-15.2) 03/28/22 20:03 Hct 46.2 % (35.5-45.6) H 03/28/22 20:03 MCV 88 fl (84-94) 03/28/22 20:03 MCH 29 pg (28-32) 03/28/22 20:03 MCHC 33 % (32-34) 03/28/22 20:03 RDW 15.1 % (13.2-15.2) 03/28/22 20:03 Plt Count 156 K/mm3 (140-440) 03/28/22 20:03 Lymph % (Auto) 20.6 % (13.4-35.0) 03/28/22 20:03 [place] % (Auto) 7.9 % (0.0-7.3) H 03/28/22 20:03 Eos % (Auto) 1.5 % (0.0-4.3) 03/28/22 20:03 Baso % (Auto) 0.8 % (0.0-1.8) 03/28/22 20:03 Lymph # (Auto) 1.3 K/mm3 (1.2-5.4) 03/28/22 20:03 [place] # (Auto) 0.5 K/mm3 (0.0-0.8) 03/28/22 20:03 Eos # (Auto) 0.1 K/mm3 (0.0-0.4) 03/28/22 20:03 Baso # (Auto) 0.0 K/mm3 (0.0-0.1) 03/28/22 20:03 Seg Neutrophils % 69.2 % (40.0-70.0) 03/28/22 20:03 Seg Neutrophils # 4.2 K/mm3 (1.8-7.7) 03/28/22 20:03 PT 14.1 Sec. (12.2-14.9) 04/02/22 04:50 INR 0.98 (0.87-1.13) 04/02/22 04:50 ABG pH 7.291 pH Units (7.350-7.450) L 03/30/22 15:00 ABG pCO2 90.4 mm Hg 03/30/22 15:00 ABG pO2 129.6 mm Hg (80.0-90.0) H 03/30/22 15:00 ABG HCO3 42.6 mmol/L (20.0-26.0) H 03/30/22 15:00 ABG O2 Saturation 98.1 % (95.0-99.0) 03/30/22 15:00 ABG O2 Content 19.9 (0.0-44) 03/30/22 15:00 ABG Base Excess 11.6 mmol/L (-2.0-3.0) H 03/30/22 15:00 ABG Hemoglobin 14.8 gm/dl (14.0-18.0) 03/30/22 15:00 ABG Carboxyhemoglobin 2.8 % (0.0-5.0) 03/30/22 15:00 ABG Methemoglobin 0.6 % (0.0-1.5) 03/30/22 15:00 Oxyhemoglobin 94.8 % (95.0-99.0) L 03/30/22 15:00 FiO2 40 % 03/30/22 15:00 Sodium 143 mmol/L (137-145) 04/02/22 04:50 Potassium 4.1 mmol/L (3.6-5.0) 04/02/22 04:50 Chloride 97.2 mmol/L (98-107) L 04/02/22 04:50 Carbon Dioxide 41 mmol/L (22-30) H* 04/02/22 04:50 Anion Gap 9 mmol/L 04/02/22 04:50 BUN 15 mg/dL (9-20) 04/02/22 04:50 Creatinine 0.9 mg/dL (0.8-1.3) 04/02/22 04:50 Estimated GFR > 60 ml/min 04/02/22 04:50 BUN/Creatinine Ratio 17 % 04/02/22 04:50 Glucose 140 mg/dL (75-100) H 04/02/22 04:50 POC Glucose 139 mg/dL (70-105) H 04/02/22 07:40 Hemoglobin A1c 8.8 % (4-6) H 03/30/22 05:21 Calcium 9.0 mg/dL (8.4-10.2) 04/02/22 04:50 Magnesium 1.90 mg/dL (1.7-2.3) 03/31/22 04:59 Total Bilirubin 0.80 mg/dL (0.1-1.2) 03/28/22 19:50 AST 14 units/L (5-40) 03/28/22 19:50 ALT 18 units/L (7-56) 03/28/22 19:50 Alkaline Phosphatase 85 units/L (35-129) 03/28/22 19:50 Troponin T < 0.010 ng/mL (0.00-0.029) 03/29/22 11:01 NT-Pro-B Natriuret Pep 790.5 pg/mL (0-900) 03/28/22 20:03 Total Protein 6.9 g/dL (6.3-8.2) 03/28/22 19:50 Albumin 3.7 g/dL (3.9-5) L 03/28/22 19:50 Albumin/Globulin Ratio 1.2 % 03/28/22 19:50 Bell/IV: Voiding Method Toilet Active Medications - Current Medications Current Medications: Generic Name Dose Route Start Last Admin Trade Name Freq PRN Reason Stop Dose Admin Acetaminophen 650 mg 03/29/22 00:09 Acetaminophen 325 Mg Tab PO Q6H PRN Pain, Mild (1-3) Aspirin 325 mg 03/30/22 10:00 04/02/22 09:24 Aspirin Ec 325 Mg Tab PO 325 mg QDAY SHAYAN Administration Dextrose 50 ml 03/29/22 00:09 Dextrose 50% In Water (25gm) 50 Ml Syringe IV Q30MIN PRN Hypoglycemia Protocol Enoxaparin Sodium 100 mg 04/01/22 10:00 04/02/22 09:27 Enoxaparin 100 Mg/1 Ml Inj SUB-Q 100 mg Q12HR SHAYAN Administration Protocol Enoxaparin Sodium 40 mg 04/01/22 10:00 04/02/22 09:28 Enoxaparin 40 Mg/0.4 Ml Inj SUB-Q 40 mg Q12HR SHAYAN Administration Famotidine 20 mg 03/31/22 22:00 04/01/22 21:17 Famotidine 20 Mg Tab PO 20 mg QHS SHAYAN Administration Furosemide 40 mg 03/29/22 06:00 04/02/22 06:41 Furosemide 40 Mg/4 Ml Inj IV 40 mg BID@0600,1800 SHAYAN Administration Insulin Human Lispro 0 unit 03/29/22 07:30 04/02/22 08:07 Insulin Lispro 100 Unit/Ml SUB-Q Not Given [facility] Protocol Lisinopril 10 mg 04/02/22 10:00 04/02/22 09:22 Lisinopril 10 Mg Tab PO 10 mg QDAY SHAYAN Administration Metoprolol Tartrate 100 mg 03/30/22 10:59 04/02/22 09:21 Metoprolol Tartrate 50 Mg Tab PO 100 mg BID SHAYAN Administration Morphine Sulfate 2 mg 03/29/22 00:09 Morphine 4 Mg/1 Ml Inj IV Q5MIN PRN Chest Pain unrelieved by NTG Nitroglycerin 0.4 mg 03/29/22 00:09 Nitroglycerin 0.4 Mg Tab Subl SL Q5M PRN Chest Pain Polyethylene Glycol 17 gm 03/31/22 14:00 04/02/22 09:24 Polyethylene Glycol 3350 17 Gm Powder PO Not Given QDAY [facility] Sodium Chloride 10 ml 03/29/22 00:09 05/13/22 21:10 Sodium Chloride 0.9% 10 Ml Flush Syringe IV 10 ml PRN PRN Administration LINE FLUSH Tramadol HCl 50 mg 03/29/22 00:09 Tramadol 50 Mg Tab PO Q6H PRN Pain, Moderate (4-6) Warfarin Sodium 7.5 mg 04/02/22 17:00 Warfarin 7.5 Mg Tab PO 04/03/22 16:59 DAILY@1700 NR Nutrition/Malnutrition Assess - Dietary Evaluation Nutrition/Malnutrition Findings: Nutrition Notes Start: 03/29/22 16:19 Freq: Status: Active Protocol: Document 04/02/22 11:32 ADRIAN (Rec: 04/02/22 11:54 ADRIAN [id number]) Nutrition Notes Initial or Follow up Brief Note Current Diagnosis Diabetes,Hypertension, Respiratory Failure Other Pertinent Diagnosis HFrEF, CO2 Narcosis, Atrial Fibrilation, Metabolic Alkalosis, OHS. Current Diet Cardiac/Consistent Carbohydrates Diet (since B ). Height 5 ft 5 in Weight 135 kg [place] Body Weight (kg) 61.81 BMI 49.5 Weight change and time frame No body weight change reported in 1 day. Weight Status Morbidly Obese Subjective/Other Information RD consult for Warfarin use education. No reports available on Pt's PO intake of meals at the time , will assess at F/U. Pt is on Nasal Cannula, O2 saturation @ 96%, according to Physical Assessment History notes. Pt will require Nutrition Education for Warfarine treatment for CVA prevention, according to Progress notes. Percent of energy/protein needs met: Prescribed Cardiac/Consistent Carbohydrates Diet provides for energy/protein needs (1, 977 Kcal/86 g) during LOS. #2 Nutrition Diagnosis Food and nutrition-related knowledge deficit Etiology DVT. As Evidenced by Signs and Symptoms Pt will require Nutrition Education for Warfarine treatment for CVA prevention, according to Progress notes. #1 Nutrition Diagnosis Overweight/obesity Comments: Pt may benefit from Nutrition Education regarding heart healthy diet, will be provided along with Warfarin use education. Diagnosis Progress(for reassessment Continues documentation) Is patient on ventilator? No Is Patient Ambulatory and/or Out of Bed Yes REE-([place]-St. Jeor-ambulatory/OOB) [ 2764.944 [id number]] Kcal/Kg value to use for calculation 12 Approximate Energy Requirements Using 1620 kcal/Kg Calculation Used for Recommendations Kcal/kg Additional Notes Protein: 0.8-1 g/Kg AdjBW; 79- 99 g/day. Fluids: 1 ml/Kcal, or as per MD. Nutrition Intervention Change Diet Order: Continue Cardiac/Consistent Carbohydrates Diet. Education Handouts Provided AND: Cardiac-TLC Nutrition Therapy, Vitamin K And Medications, and MyPlate For Meal Planning. Goal #1 During LOS, provide Pt with nutrition education to foster behavioral changes towards a healthy lifestyle. Goal #2 Adjust the dietary intervention to better serve Pt's needs and clinical conditions during LOS. Goal #3 Maintain body weight within +/ -3% of admission body weight during LOS. Anticipated Discharge Needs: Continue Prescribed Cardiac/ Consistent Carbohydrates Diet. Follow-Up By: 04/05/22 Additional Comments Continue monitoring food tolerance, %PO intake of meals , and BM.
--- NOTE | 2022-04-02 15:08 | Progress Note ---
Assessment and Plan Patient is 51-year-old male with a past medical history of HFpEF, hypertension, diabetes, FAZAL who presented to the ED with a complaint of shortness of breath that has been going on for several days. Acute respiratory failure Acute on chronic HFrEF Cardiomyopathy PAF (previously on Coumadin, now on Pradaxa per med rec) Hypertension Diabetes FAZAL Echo 12/09/2019-EF 50 to 55%. Mild concentric LVH. Impaired relaxation pattern. Right ventricle systolic function is normal. Echo 03/29/2022-EF 25 to 30% LV is mildly dilated. Mild concentric LVH. Right ventricle mildly dilated. Right ventricle is mildly hypokinetic. Trace tricuspid regurgitation Plan: Continue and lisinopril 10 mg p.o. twice daily and metoprolol 100 mg p.o. twice daily Patient reports good urine output will continue Lasix 40 mg IV twice daily for diuresis Strict I&O's with close monitoring renal function repeat BMP in the a.m. Continue PO Lopressor 100mg BID. May be converted to Toprol XL at discharge. Increase Lisinopril to 10mg daily. Plan for ischemic evaluation when clinically stable given significant reduction in LVEF noted on echo this admission. May be performed as an outpatient. Will hold ordering LifeVest due complex issues with compliance in the inpatient and outpatient settings Patient seen in conjunction with Dr. Hitchcock who agrees with this plan of care - Patient Problems (1) Shortness of breath Current Visit: Yes Status: Acute (2) Acute exacerbation of congestive heart failure Current Visit: No Status: Acute Qualifiers: Heart failure type: systolic Qualified Code(s): I50.23 - Acute on chronic systolic (congestive) heart failure (3) Diabetes Current Visit: No Status: Acute Qualifiers: Diabetes mellitus type: type 2 Diabetes mellitus fci insulin use: without buttermaker continuous churn use Diabetes mellitus complication status: without complication Qualified Code(s): E11.9 - Type 2 diabetes mellitus without complications (4) HTN (hypertension) Current Visit: No Status: Chronic (5) Sleep apnea Current Visit: No Status: Chronic Subjective Date of service: 04/02/22 Principal diagnosis: HFrEF Interval history: Patient sitting in bed Sinus 70s to 80s with PVCs Objective Vital Signs Temp Pulse Resp BP Pulse Ox 04/02/22 11:15 97.8 F 70 18 121/74 97 04/02/22 10:00 63 18 3 L 04/02/22 07:42 97.7 F 71 20 119/75 93 04/02/22 03:56 70 18 100 04/02/22 03:38 98.4 F 46 L 20 125/75 92 04/02/22 01:10 97 04/02/22 00:00 69 18 99 04/01/22 23:00 98.7 F 76 19 106/64 93 04/01/22 20:53 73 04/01/22 20:10 98.5 F 41 L 19 116/68 96 04/01/22 16:13 97.9 F 73 18 132/75 89 - Physical Examination General: No Apparent Distress HEENT: Positive: EOMI, Normocephaly Neck: Positive: neck supple, trachea midline. Negative: JVD/HJR Cardiac: Positive: Reg Rate and Rhythm Lungs: Positive: Decreased Breath Sounds Neuro: Positive: Grossly Intact Abdomen: Positive: Soft Skin: Negative: Rash Extremities: Present: edema (BLE), warm - Labs and Meds Coagulation 04/02/22 Range/Units 04:50 PT 14.1 (12.2-14.9) Sec. INR 0.98 (0.87-1.13) Comprehensive Metabolic Panel 04/02/22 Range/Units 04:50 Sodium 143 (137-145) mmol/L Potassium 4.1 (3.6-5.0) mmol/L Chloride 97.2 L (98-107) mmol/L Carbon Dioxide 41 H* (22-30) mmol/L BUN 15 (9-20) mg/dL Creatinine 0.9 (0.8-1.3) mg/dL Glucose 140 H (75-100) mg/dL Calcium 9.0 (8.4-10.2) mg/dL - Imaging and Cardiology EKG: report reviewed, image reviewed Echo: report reviewed Cardiac cath: report reviewed - Telemetry EKG Rhythm: Sinus Rhythm - EKG Sinus rhythms and dysrhythmias: sinus rhythm Ventricular dysrhythmias: ventricular premature com Repolarization changes or abnormalities: nonspecific abnormality, ST segment, and/or T wave - Allied health notes Allied health notes reviewed: nursing
[2022-04-02] MEDS ORDERED: WARFARIN 7.5 MG TAB PO NR (17:00)
[2022-04-02] MEDS: FAMOTIDINE 20 MG TAB PO SCH (21:57)
[2022-04-03] MEDS: METOPROLOL TARTRATE 50 MG TAB PO SCH ×4 (00:31→22:00)
[2022-04-03 05:26] LABS: INR 0.99 (0.87-1.13)
[2022-04-03 05:33] LABS: BUN/Creatinine Ratio 19; Blood Urea Nitrogen 17 mg/dL (9-20); Calcium 8.9 mg/dL (8.4-10.2); Hemolysis Index 32
[2022-04-03] MEDS: FUROSEMIDE 40 MG/4 ML INJ IV SCH (06:37)
[2022-04-03] MEDS: INSULIN LISPRO 100 UNIT/ML SUB-Q SCH ×4 (08:05→22:00)
[2022-04-03] MEDS: LISINOPRIL 10 MG TAB PO SCH (10:28)
[2022-04-03] MEDS: ENOXAPARIN 40 MG/0.4 ML INJ SUB-Q SCH ×2 (10:29→22:30)
[2022-04-03] MEDS: POLYETHYLENE GLYCOL 3350 17 GM POWDER PO SCH (10:30)
[2022-04-03] MEDS: ASPIRIN EC 325 MG TAB PO SCH (10:30)
[2022-04-03] MEDS: ENOXAPARIN 100 MG/1 ML INJ SUB-Q SCH ×2 (10:30→22:30)
--- NOTE | 2022-04-03 12:29 | Progress Note ---
Assessment and Plan Acute on chronic hypercarbic & hypoxemic respiratory failure Obesity hypoventilation syndrome Possible obstructive sleep apnea Acute encephalopathy Acute congestive heart failure exacerbation Morbid obesity DM II Chest pain Hypertension - continue BIPAP scheduled qhs with prn daytime use - no new issues, continue care as below; - continue diuresis while following electrolytes - continue to wean supplemental oxygen to keep O2 sats > 90% - continue Bronchodilators (ИРИНА & LABA) with pulm hygiene per RT - continue systemic steroids with slow taper - continue inhaled corticosteroids - continue to avoid nephrotoxins, renally dose all medications - continue mobility protocols to prevent pressure ulcers - PT/OT as tolerated - Wound care per RN/WCT - continue accuchecks with glycemic control per SSI for target blood glucose < 180 mg/dL - Smoking cessation strongly counseled at the bedside - home oxygen evaluation at discharge - GI & VTE prophylaxis - Flu & pneumovax per protocol - Pulmonary out patient follow up for PFTs and optimization of respiratory status - continue other care per attending / other consultants - prn analgesia per pain score ... re-evaluate in am & prn Subjective Date of service: 04/03/22 Principal diagnosis: Acute on chronic hypercarbic & hypoxemic resp failure; OHS/FAZAL; AE-CHF; AMS Interval history: Patient is seen today for: Acute on chronic hypercarbic & hypoxemic respiratory failure; OHS / FAZAL; AE-CHF; Acute encephalopathy; Morbid obesity; Chest pain; H/O PAF Seen and examined at bedside; 24hour events reviewed; nursing and respiratory care staff consulted; no adverse overnight events reported to me; resting in bed; INR remains sub-therapeutic; no new issues respiratory-vickers Objective Vital Signs - 12hr 04/03/22 04/03/22 04/03/22 00:31 02:23 02:58 Temperature 98.6 F Pulse Rate 89 70 Respiratory 33 H 24 Rate Blood Pressure 117/72 Blood Pressure 120/70 [Left] O2 Sat by Pulse 99 97 Oximetry 04/03/22 04/03/22 04/03/22 04:36 07:48 10:47 Temperature Pulse Rate 77 51 L Respiratory 26 H 18 Rate Blood Pressure 128/71 Blood Pressure [Left] O2 Sat by Pulse 98 95 97 Oximetry 04/03/22 04/03/22 11:34 11:50 Temperature Pulse Rate 81 Respiratory 16 18 Rate Blood Pressure 96/36 Blood Pressure [Left] O2 Sat by Pulse 93 96 Oximetry Constitutional: no acute distress Eyes: non-icteric ENT: oropharynx moist Neck: supple, no lymphadenopathy, no JVD, other (large circumference) Effort: mildly labored Ascultation: Bilateral: clear, diminished breath sounds Percussion: Bilateral: not dull Cardiovascular: regular rate and rhythm Gastrointestinal: normoactive bowel sounds, soft, non-tender, non-distended Integumentary: normal Extremities: no cyanosis, pulses normal, no ischemia or petechiae, edema Neurologic: non-focal exam, pupils equal and round, CN II-XII normal, motor strength normal and Psychiatric: mood appropriate, affect normal CBC and BMP: 03/28/22 20:03 04/03/22 04:30 ABG, PT/INR, D-dimer: ABG ABG pH 7.291 pH Units (7.350-7.450) L 03/30/22 15:00 ABG pCO2 90.4 mm Hg 03/30/22 15:00 ABG pO2 129.6 mm Hg (80.0-90.0) H 03/30/22 15:00 ABG O2 Saturation 98.1 % (95.0-99.0) 03/30/22 15:00 PT/INR, D-dimer PT 14.2 Sec. (12.2-14.9) 04/03/22 04:30 INR 0.99 (0.87-1.13) 04/03/22 04:30 Abnormal lab findings: Abnormal Labs 03/28/22 03/28/22 03/29/22 19:50 20:03 00:29 RBC 5.27 H Hct 46.2 H [place] % (Auto) 7.9 H ABG pH ABG pO2 ABG HCO3 ABG Base Excess Oxyhemoglobin Chloride Carbon Dioxide 34 H 34 H BUN 8 L Glucose 194 H 192 H POC Glucose Hemoglobin A1c Albumin 3.7 L 03/29/22 03/29/22 03/29/22 08:03 11:44 16:27 RBC Hct [place] % (Auto) ABG pH ABG pO2 ABG HCO3 ABG Base Excess Oxyhemoglobin Chloride Carbon Dioxide BUN Glucose POC Glucose 195 H 229 H 125 H Hemoglobin A1c Albumin 03/29/22 03/29/22 03/30/22 20:13 21:16 05:21 RBC Hct [place] % (Auto) ABG pH ABG pO2 ABG HCO3 ABG Base Excess Oxyhemoglobin Chloride 96.8 L Carbon Dioxide 40 H BUN Glucose 142 H POC Glucose 216 H 232 H Hemoglobin A1c Albumin 03/30/22 03/30/22 03/30/22 05:21 07:40 11:13 RBC Hct [place] % (Auto) ABG pH ABG pO2 ABG HCO3 ABG Base Excess Oxyhemoglobin Chloride Carbon Dioxide BUN Glucose POC Glucose 150 H 219 H Hemoglobin A1c 8.8 H Albumin 03/30/22 03/30/22 03/30/22 11:40 15:00 16:01 RBC Hct [place] % (Auto) ABG pH 7.273 L 7.291 L ABG pO2 129.6 H ABG HCO3 46.6 H 42.6 H ABG Base Excess 14.2 H 11.6 H Oxyhemoglobin 92.8 L 94.8 L Chloride Carbon Dioxide BUN Glucose POC Glucose 156 H Hemoglobin A1c Albumin 03/30/22 03/31/22 03/31/22 20:10 04:59 07:54 RBC Hct [place] % (Auto) ABG pH ABG pO2 ABG HCO3 ABG Base Excess Oxyhemoglobin Chloride Carbon Dioxide 38 H BUN Glucose 163 H POC Glucose 208 H 147 H Hemoglobin A1c Albumin 03/31/22 03/31/22 03/31/22 12:16 16:25 20:49 RBC Hct [place] % (Auto) ABG pH ABG pO2 ABG HCO3 ABG Base Excess Oxyhemoglobin Chloride Carbon Dioxide BUN Glucose POC Glucose 209 H 129 H 157 H Hemoglobin A1c Albumin 04/01/22 04/01/22 04/01/22 08:07 11:33 15:37 RBC Hct [place] % (Auto) ABG pH ABG pO2 ABG HCO3 ABG Base Excess Oxyhemoglobin Chloride Carbon Dioxide BUN Glucose POC Glucose 144 H 219 H 186 H Hemoglobin A1c Albumin 04/01/22 04/02/22 04/02/22 21:28 04:50 07:40 RBC Hct [place] % (Auto) ABG pH ABG pO2 ABG HCO3 ABG Base Excess Oxyhemoglobin Chloride 97.2 L Carbon Dioxide 41 H* BUN Glucose 140 H POC Glucose 170 H 139 H Hemoglobin A1c Albumin 04/02/22 04/02/22 04/02/22 11:13 16:35 20:15 RBC Hct [place] % (Auto) ABG pH ABG pO2 ABG HCO3 ABG Base Excess Oxyhemoglobin Chloride Carbon Dioxide BUN Glucose POC Glucose 182 H 192 H 167 H Hemoglobin A1c Albumin 04/03/22 04/03/22 04/03/22 04:30 07:50 11:34 RBC Hct [place] % (Auto) ABG pH ABG pO2 ABG HCO3 ABG Base Excess Oxyhemoglobin Chloride 94.4 L Carbon Dioxide 38 H BUN Glucose 137 H POC Glucose 147 H 213 H Hemoglobin A1c Albumin Allied health notes reviewed: nursing
--- NOTE | 2022-04-03 12:52 | Progress Note ---
Assessment and Plan Patient is 51-year-old male with a past medical history of HFpEF, hypertension, diabetes, FAZAL who presented to the ED with a complaint of shortness of breath that has been going on for several days. Acute respiratory failure Acute on chronic HFrEF Cardiomyopathy PAF (previously on Coumadin, now on Pradaxa per med rec) Hypertension Diabetes FAZAL Echo 12/09/2019-EF 50 to 55%. Mild concentric LVH. Impaired relaxation pattern. Right ventricle systolic function is normal. Echo 03/29/2022-EF 25 to 30% LV is mildly dilated. Mild concentric LVH. Right ventricle mildly dilated. Right ventricle is mildly hypokinetic. Trace tricuspid regurgitation Plan: Continue and lisinopril 10 mg p.o. twice daily and metoprolol 100 mg p.o. twice daily Patient reports decrease in urine output and reports improvement in respiratory status. We will stop Lasix IV and convert to Lasix 40 mg p.o. daily Strict I&O's with close monitoring renal function repeat BMP in the a.m. Patient currently on Lovenox bridging to Coumadin. Pharmacy to dose Continue PO Lopressor 100mg BID. May be converted to Toprol XL at discharge. Increase Lisinopril to 10mg daily. Plan for ischemic evaluation when clinically stable given significant reduction in LVEF noted on echo this admission. May be performed as an outpatient. Will hold ordering LifeVest due complex issues with compliance in the inpatient and outpatient settings Cardiac status otherwise stable Patient may follow-up with Dr. Alberts, [facility] heart specialists, on 05/07/2022 at 1:15pm in our [place] location. Phone #[phone] Patient seen in conjunction with Dr. Hitchcock who agrees with this plan of care - Patient Problems (1) Shortness of breath Current Visit: Yes Status: Acute (2) Acute exacerbation of congestive heart failure Current Visit: No Status: Acute Qualifiers: Heart failure type: systolic Qualified Code(s): I50.23 - Acute on chronic systolic (congestive) heart failure (3) Diabetes Current Visit: No Status: Acute Qualifiers: Diabetes mellitus type: type 2 Diabetes mellitus terminologist insulin use: without terminologist use Diabetes mellitus complication status: without complication Qualified Code(s): E11.9 - Type 2 diabetes mellitus without complications (4) HTN (hypertension) Current Visit: No Status: Chronic (5) Sleep apnea Current Visit: No Status: Chronic Subjective Date of service: 04/03/22 Principal diagnosis: Acute on chronic hypercarbic & hypoxemic resp failure; OHS/FAZAL; AE-CHF; AMS Interval history: Patient sitting in bed Sinus 70s to 80s with PVCs Objective Vital Signs Temp Pulse Resp BP BP Pulse Ox 04/03/22 11:50 18 96 04/03/22 11:34 81 16 96/36 93 04/03/22 10:47 97 04/03/22 07:48 51 L 18 128/71 95 04/03/22 04:36 77 26 H 98 04/03/22 02:58 98.6 F 70 24 120/70 04/03/22 02:23 97 04/03/22 00:31 89 33 H 117/72 99 04/02/22 22:39 98.7 F 79 18 117/72 97 04/02/22 20:15 57 L 04/02/22 19:58 95 04/02/22 19:09 98.7 F 57 L 18 105/61 97 04/02/22 16:38 98.2 F 69 18 105/55 92 - Physical Examination General: No Apparent Distress HEENT: Positive: EOMI, Normocephaly Neck: Positive: neck supple, trachea midline. Negative: JVD/HJR Cardiac: Positive: Reg Rate and Rhythm Lungs: Positive: Decreased Breath Sounds Neuro: Positive: Grossly Intact Abdomen: Positive: Soft Skin: Negative: Rash Extremities: Present: edema (BLE), warm - Labs and Meds Coagulation 04/03/22 Range/Units 04:30 PT 14.2 (12.2-14.9) Sec. INR 0.99 (0.87-1.13) Comprehensive Metabolic Panel 04/03/22 Range/Units 04:30 Sodium 142 (137-145) mmol/L Potassium 4.0 (3.6-5.0) mmol/L Chloride 94.4 L (98-107) mmol/L Carbon Dioxide 38 H (22-30) mmol/L BUN 17 (9-20) mg/dL Creatinine 0.9 (0.8-1.3) mg/dL Glucose 137 H (75-100) mg/dL Calcium 8.9 (8.4-10.2) mg/dL - Imaging and Cardiology EKG: report reviewed, image reviewed Echo: report reviewed Cardiac cath: report reviewed - Telemetry EKG Rhythm: Sinus Rhythm - EKG Sinus rhythms and dysrhythmias: sinus rhythm Ventricular dysrhythmias: ventricular premature com Repolarization changes or abnormalities: nonspecific abnormality, ST segment, and/or T wave - Allied health notes Allied health notes reviewed: nursing
--- NOTE | 2022-04-03 14:51 | Progress Note ---
Assessment and Plan Assessment and plan: #Acute on chronic hypoxic respiratory failure #Acute on chronic hypercapnic respiratory failure #Carbon dioxide narcosisresolved - etiology: Likely multifactorial (acute on chronic diastolic and systolic heart failure, obesity hypoventilation syndrome, and possible obstructive sleep apnea) - baseline oxygen requirements: Room air - supplemental oxygen: 3 L nasal cannula during the day and BiPAP at night - Continue protocol: continue pulse oximetry, wean oxygen as tolerated, ordered incentive spirometry and educated patient on how to use it and its importance. 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 -TTE: EF 25-30% -continue lisinopril, metoprolol and lasix -strict I/Os, daily weights, cardiac diet -no need for ischemic evaluation at this time -Cardiology consulted, assistance appreciated #Paroxysmal atrial fibrillation -patient prescribed pradaxa in past, has not used it in the last 6 months -discussed importance of taking anticoagulation to decrease risk of stroke -Continue warfarin 10 mg daily with lovenox bridging due to patient lack of insurance (INR goal 23) -continue beta-blockade #Metabolic alkalosis -likely secondary to CO2 retention from FAZAL -worsening likely due to diuretics #Possible obstructive sleep apnea #Obesity hypoventilation syndrome -patient reportedly uses CPAP at home -BiPAP at night while inpatient -patient morbidly obese, will require bariatric surgery evaluation at discharge. Patient should follow-up with pulmonology in outpatient setting for sleep study. #[id number] Type II Diabetes with hyperglycemia-improving -patient reports taking metformin in the past -A1C 8.8% -will continue with sliding scale for now -will restart metformin at discharge #Hypertension-improved -Patient taking medications at home -BP controlled/low while inpatient -We will continue with GDMT for CHF #Mild protein caloric malnutrition Albumin 3.7 Starting dietary supplementation #Obesity #Weight loss counseling #Exercise counseling - BMI 48.9 - Counseled patient on the importance of weight loss, incorporating exercise, and dietary changes (lean meats, fresh fruits and vegetables, and water intake). Patient expresses understanding. - Time: +15 min #Advanced care planning -Disease education conducted, care plan discussed, diagnoses discussed, prognosis discussed, and patient acknowledges understanding with care plan -Time: +30 min Disposition Plan: Continue medical management Total Time Spent with Patient (Minutes): 45 minutes History Interval history: No acute events overnight. Hospitalist Physical - Constitutional Vitals: Temp Pulse Resp BP Pulse Ox 98.6 F 81 18 96/36 96 04/03/22 02:58 04/03/22 11:34 04/03/22 11:50 04/03/22 11:34 04/03/22 11:50 General appearance: Present: no acute distress, well-nourished, obese - EENT Eyes: Present: PERRL, EOM intact ENT: hearing intact, clear oral mucosa, dentition normal - Neck Neck: Present: supple, normal ROM - Respiratory Respiratory effort: normal Respiratory: bilateral: diminished (on 3L NC; BiPAP at night) - Cardiovascular Rhythm: regular Heart Sounds: Present: S1 & S2 - Extremities Extremities: no ischemia, pulses intact, pulses symmetrical, normal temperature, normal color Peripheral Pulses: within normal limits - Abdominal General gastrointestinal: soft, non-tender, non-distended, normal bowel sounds - Integumentary Integumentary: Present: clear, warm, dry - Psychiatric Psychiatric: appropriate mood/affect, cooperative, other (Very limited insight about overall clinical picture and health maintenance) - Neurologic Neurologic: CNII-XII intact, moves all extremities - Allied Health Allied health notes reviewed: nursing HEART Score - HEART Score EKG: Non-specific Age: 45-65 Risk factors: > 3 risk factors or hx of atherosclerotic disease Troponin: Troponin T < 0.010 ng/mL (0.00-0.029) 03/29/22 11:01 Troponin: < normal limit Results - Labs CBC & Chem 7: 03/28/22 20:03 04/03/22 04:30 Labs: Laboratory Last Values WBC 6.1 K/mm3 (4.5-11.0) 03/28/22 20:03 RBC 5.27 M/mm3 (3.65-5.03) H 03/28/22 20:03 Hgb 15.1 gm/dl (11.8-15.2) 03/28/22 20:03 Hct 46.2 % (35.5-45.6) H 03/28/22 20:03 MCV 88 fl (84-94) 03/28/22 20:03 MCH 29 pg (28-32) 03/28/22 20:03 MCHC 33 % (32-34) 03/28/22 20:03 RDW 15.1 % (13.2-15.2) 03/28/22 20:03 Plt Count 156 K/mm3 (140-440) 03/28/22 20:03 Lymph % (Auto) 20.6 % (13.4-35.0) 03/28/22 20:03 [place] % (Auto) 7.9 % (0.0-7.3) H 03/28/22 20:03 Eos % (Auto) 1.5 % (0.0-4.3) 03/28/22 20:03 Baso % (Auto) 0.8 % (0.0-1.8) 03/28/22 20:03 Lymph # (Auto) 1.3 K/mm3 (1.2-5.4) 03/28/22 20:03 [place] # (Auto) 0.5 K/mm3 (0.0-0.8) 03/28/22 20:03 Eos # (Auto) 0.1 K/mm3 (0.0-0.4) 03/28/22 20:03 Baso # (Auto) 0.0 K/mm3 (0.0-0.1) 03/28/22 20:03 Seg Neutrophils % 69.2 % (40.0-70.0) 03/28/22 20:03 Seg Neutrophils # 4.2 K/mm3 (1.8-7.7) 03/28/22 20:03 PT 14.2 Sec. (12.2-14.9) 04/03/22 04:30 INR 0.99 (0.87-1.13) 04/03/22 04:30 ABG pH 7.291 pH Units (7.350-7.450) L 03/30/22 15:00 ABG pCO2 90.4 mm Hg 03/30/22 15:00 ABG pO2 129.6 mm Hg (80.0-90.0) H 03/30/22 15:00 ABG HCO3 42.6 mmol/L (20.0-26.0) H 03/30/22 15:00 ABG O2 Saturation 98.1 % (95.0-99.0) 03/30/22 15:00 ABG O2 Content 19.9 (0.0-44) 03/30/22 15:00 ABG Base Excess 11.6 mmol/L (-2.0-3.0) H 03/30/22 15:00 ABG Hemoglobin 14.8 gm/dl (14.0-18.0) 03/30/22 15:00 ABG Carboxyhemoglobin 2.8 % (0.0-5.0) 03/30/22 15:00 ABG Methemoglobin 0.6 % (0.0-1.5) 03/30/22 15:00 Oxyhemoglobin 94.8 % (95.0-99.0) L 03/30/22 15:00 FiO2 40 % 03/30/22 15:00 Sodium 142 mmol/L (137-145) 04/03/22 04:30 Potassium 4.0 mmol/L (3.6-5.0) 04/03/22 04:30 Chloride 94.4 mmol/L (98-107) L 04/03/22 04:30 Carbon Dioxide 38 mmol/L (22-30) H 04/03/22 04:30 Anion Gap 14 mmol/L 04/03/22 04:30 BUN 17 mg/dL (9-20) 04/03/22 04:30 Creatinine 0.9 mg/dL (0.8-1.3) 04/03/22 04:30 Estimated GFR > 60 ml/min 04/03/22 04:30 BUN/Creatinine Ratio 19 % 04/03/22 04:30 Glucose 137 mg/dL (75-100) H 04/03/22 04:30 POC Glucose 213 mg/dL (70-105) H 04/03/22 11:34 Hemoglobin A1c 8.8 % (4-6) H 03/30/22 05:21 Calcium 8.9 mg/dL (8.4-10.2) 04/03/22 04:30 Magnesium 1.90 mg/dL (1.7-2.3) 03/31/22 04:59 Total Bilirubin 0.80 mg/dL (0.1-1.2) 03/28/22 19:50 AST 14 units/L (5-40) 03/28/22 19:50 ALT 18 units/L (7-56) 03/28/22 19:50 Alkaline Phosphatase 85 units/L (35-129) 03/28/22 19:50 Troponin T < 0.010 ng/mL (0.00-0.029) 03/29/22 11:01 NT-Pro-B Natriuret Pep 790.5 pg/mL (0-900) 03/28/22 20:03 Total Protein 6.9 g/dL (6.3-8.2) 03/28/22 19:50 Albumin 3.7 g/dL (3.9-5) L 03/28/22 19:50 Albumin/Globulin Ratio 1.2 % 03/28/22 19:50 Bell/IV: Voiding Method Toilet Active Medications - Current Medications Current Medications: Generic Name Dose Route Start Last Admin Trade Name Freq PRN Reason Stop Dose Admin Acetaminophen 650 mg 03/29/22 00:09 Acetaminophen 325 Mg Tab PO Q6H PRN Pain, Mild (1-3) Aspirin 325 mg 03/30/22 10:00 04/03/22 10:30 Aspirin Ec 325 Mg Tab PO 325 mg QDAY SHAYAN Administration Dextrose 50 ml 03/29/22 00:09 Dextrose 50% In Water (25gm) 50 Ml Syringe IV Q30MIN PRN Hypoglycemia Protocol Enoxaparin Sodium 100 mg 04/01/22 10:00 04/03/22 10:30 Enoxaparin 100 Mg/1 Ml Inj SUB-Q 100 mg Q12HR SHAYAN Administration Protocol Enoxaparin Sodium 40 mg 04/01/22 10:00 04/03/22 10:29 Enoxaparin 40 Mg/0.4 Ml Inj SUB-Q 40 mg Q12HR SHAYAN Administration Famotidine 20 mg 03/31/22 22:00 04/02/22 21:57 Famotidine 20 Mg Tab PO 20 mg QHS SHAYAN Administration Furosemide 40 mg 04/04/22 10:00 Furosemide 40 Mg Tab PO QDAY SHAYAN Insulin Human Lispro 0 unit 03/29/22 07:30 04/03/22 12:15 Insulin Lispro 100 Unit/Ml SUB-Q 3 unit ACHS SHAAYN Administration Protocol Lisinopril 10 mg 04/02/22 10:00 04/03/22 10:28 Lisinopril 10 Mg Tab PO 10 mg QDAY SHAYAN Administration Metoprolol Tartrate 100 mg 03/30/22 10:59 04/03/22 10:35 Metoprolol Tartrate 50 Mg Tab PO Not Given BID SHAYAN Morphine Sulfate 2 mg 03/29/22 00:09 Morphine 4 Mg/1 Ml Inj IV Q5MIN PRN Chest Pain unrelieved by NTG Nitroglycerin 0.4 mg 03/29/22 00:09 Nitroglycerin 0.4 Mg Tab Subl SL Q5M PRN Chest Pain Polyethylene Glycol 17 gm 03/31/22 14:00 04/03/22 10:30 Polyethylene Glycol 3350 17 Gm Powder PO Not Given QDAY SHAYAN Sodium Chloride 10 ml 03/29/22 00:09 03/30/22 21:10 Sodium Chloride 0.9% 10 Ml Flush Syringe IV 10 ml PRN PRN Administration LINE FLUSH Tramadol HCl 50 mg 03/29/22 00:09 Tramadol 50 Mg Tab PO Q6H PRN Pain, Moderate (4-6) Warfarin Sodium 10 mg 04/03/22 17:00 Warfarin 10 Mg Tab PO 04/04/22 16:59 DAILY@1700 NR Nutrition/Malnutrition Assess - Dietary Evaluation Nutrition/Malnutrition Findings: Nutrition Notes Start: 03/29/22 16:19 Freq: Status: Active Protocol: Document 04/02/22 11:32 ADRIAN (Rec: 04/02/22 11:54 ADRIAN [id number]) Nutrition Notes Initial or Follow up Brief Note Current Diagnosis Diabetes,Hypertension, Respiratory Failure Other Pertinent Diagnosis HFrEF, CO2 Narcosis, Atrial Fibrilation, Metabolic Alkalosis, OHS. Current Diet Cardiac/Consistent Carbohydrates Diet (since B ). Height 5 ft 5 in Weight 135 kg [place] Body Weight (kg) 61.81 BMI 49.5 Weight change and time frame No body weight change reported in 1 day. Weight Status Morbidly Obese Subjective/Other Information RD consult for Warfarin use education. No reports available on Pt's PO intake of meals at the time , will assess at F/U. Pt is on Nasal Cannula, O2 saturation @ 96%, according to Physical Assessment History notes. Pt will require Nutrition Education for Warfarine treatment for CVA prevention, according to Progress notes. Percent of energy/protein needs met: Prescribed Cardiac/Consistent Carbohydrates Diet provides for energy/protein needs (1, 977 Kcal/86 g) during LOS. #2 Nutrition Diagnosis Food and nutrition-related knowledge deficit Etiology DVT. As Evidenced by Signs and Symptoms Pt will require Nutrition Education for Warfarine treatment for CVA prevention, according to Progress notes. #1 Nutrition Diagnosis Overweight/obesity Comments: Pt may benefit from Nutrition Education regarding heart healthy diet, will be provided along with Warfarin use education. Diagnosis Progress(for reassessment Continues documentation) Is patient on ventilator? No Is Patient Ambulatory and/or Out of Bed Yes REE-([place]-St. Jeor-ambulatory/OOB) [ 2764.944 [id number]] Kcal/Kg value to use for calculation 12 Approximate Energy Requirements Using 1620 kcal/Kg Calculation Used for Recommendations Kcal/kg Additional Notes Protein: 0.8-1 g/Kg AdjBW; 79- 99 g/day. Fluids: 1 ml/Kcal, or as per MD. Nutrition Intervention Change Diet Order: Continue Cardiac/Consistent Carbohydrates Diet. Education Handouts Provided AND: Cardiac-TLC Nutrition Therapy, Vitamin K And Medications, and MyPlate For Meal Planning. Goal #1 During LOS, provide Pt with nutrition education to foster behavioral changes towards a healthy lifestyle. Goal #2 Adjust the dietary intervention to better serve Pt's needs and clinical conditions during LOS. Goal #3 Maintain body weight within +/ -3% of admission body weight during LOS. Anticipated Discharge Needs: Continue Prescribed Cardiac/ Consistent Carbohydrates Diet. Follow-Up By: 04/05/22 Additional Comments Continue monitoring food tolerance, %PO intake of meals , and BM.
[2022-04-03] MEDS ORDERED: WARFARIN 10 MG TAB PO NR (17:00)
--- NOTE | 2022-04-03 18:13 | Electrocardiograph Report ---
[facility] Test Date: 2022-03-28 Test Time: 20:54:54 Pat Name: MICHAEL CARRENO Department: Room: A475 1 Gender: M Scrap Hooker: [place] : 1970 Requested By: PROMISE NAGY Order Number: [id number] Reading MD: Jaylon Coker Measurements Intervals [place] Rate: 97 P: 53 SC: 173 QRS: -31 QRSD: 97 T: 103 QT: 388 QTc: 488 Interpretive Statements Sinus rhythm Atrial premature complex Probable left atrial enlargement Left axis deviation Abnormal T, consider ischemia, lateral leads No previous ECG available for comparison Electronically Signed On 04-03-2022 18:13:35 EDT by Jaylon Coker
--- NOTE | 2022-04-03 18:15 | Electrocardiograph Report ---
[facility] Test Date: 2022-03-29 Test Time: 07:10:57 Pat Name: MICHAEL CARRENO Department: Room: A475 1 Gender: M Vessel Ordinary Seaman: ALEXANDER : 1970 Requested By: COCO SHEARER Order Number: [id number] Reading MD: Jaylon Coker Measurements Intervals [place] Rate: 104 P: 54 WV: 174 QRS: 35 QRSD: 98 T: 102 QT: 372 QTc: 487 Interpretive Statements Multifocal atrial tachycardia Probable left atrial enlargement Nonspecific T abnormalities, lateral leads No previous ECG available for comparison Electronically Signed On 04-03-2022 18:15:40 EDT by Jaylon Coker
--- NOTE | 2022-04-03 18:20 | Electrocardiograph Report ---
[facility] Test Date: 2022-03-29 Test Time: 11:34:23 Pat Name: MICHAEL CARRENO Department: Room: A475 1 Gender: M Synthetic Cloth Binding Cutter: ALEXANDER : 1970 Requested By: COCO SHEARER Order Number: [id number] Reading MD: Jaylon Coker Measurements Intervals [place] Rate: 100 P: 52 CT: 166 QRS: 0 QRSD: 99 T: 108 QT: 363 QTc: 448 Interpretive Statements Sinus with frequent PACs and PVCs Low voltage QRS Left axis deviation Poor R wave progression consider old anteroseptal infarct Nonspecific T wave abnormality Compared to ECG 03/29/2022 07:10:57 No significant change Electronically Signed On 04-03-2022 18:20:01 EDT by Jaylon Coker
[2022-04-03] MEDS: FAMOTIDINE 20 MG TAB PO SCH (22:35)
[2022-04-04 06:35] LABS: INR 0.95 (0.87-1.13)
[2022-04-04] MEDS: INSULIN LISPRO 100 UNIT/ML SUB-Q SCH ×3 (08:20→17:41)
[2022-04-04] MEDS: ASPIRIN EC 325 MG TAB PO SCH (10:10)
[2022-04-04] MEDS: LISINOPRIL 10 MG TAB PO SCH (10:10)
[2022-04-04] MEDS: METOPROLOL TARTRATE 50 MG TAB PO SCH ×2 (10:10→22:06)
[2022-04-04] MEDS: ENOXAPARIN 40 MG/0.4 ML INJ SUB-Q SCH ×2 (10:11→22:06)
[2022-04-04] MEDS: ENOXAPARIN 100 MG/1 ML INJ SUB-Q SCH ×2 (10:11→22:05)
[2022-04-04] MEDS: FUROSEMIDE 40 MG TAB PO SCH (10:11)
[2022-04-04] MEDS: POLYETHYLENE GLYCOL 3350 17 GM POWDER PO SCH (12:47)
--- NOTE | 2022-04-04 13:31 | Progress Note ---
Assessment and Plan Acute on chronic hypercarbic & hypoxemic respiratory failure Obesity hypoventilation syndrome Possible obstructive sleep apnea Acute encephalopathy Acute congestive heart failure exacerbation Morbid obesity DM II Chest pain Hypertension - discharge planning ok pulmonary-vickers once home oxygen procured - continue BIPAP scheduled qhs with prn daytime use (he has a home NIV machine) - Pulmonary out patient follow up for PFTs and optimization of respiratory status + sleep clinic evaluation - no new issues, continue care as below; - continue diuresis while following electrolytes - continue to wean supplemental oxygen to keep O2 sats > 90% - continue Bronchodilators (ИРИНА & LABA) with pulm hygiene per RT - continue systemic steroids with slow taper - continue inhaled corticosteroids - continue to avoid nephrotoxins, renally dose all medications - continue mobility protocols to prevent pressure ulcers - PT/OT as tolerated - Wound care per RN/WCT - continue accuchecks with glycemic control per SSI for target blood glucose < 180 mg/dL - Smoking cessation strongly counseled at the bedside - home oxygen evaluation at discharge - GI & VTE prophylaxis - Flu & pneumovax per protocol - continue other care per attending / other consultants - prn analgesia per pain score ... re-evaluate in am & prn Subjective Date of service: 04/04/22 Principal diagnosis: Acute on chronic hypercarbic & hypoxemic resp failure; OHS/FAZAL; AE-CHF; AMS Interval history: Patient is seen today for: Acute on chronic hypercarbic & hypoxemic respiratory failure; OHS / FAZAL; AE-CHF; Acute encephalopathy; Morbid obesity; Chest pain; H/O PAF Seen and examined at bedside; 24hour events reviewed; nursing and respiratory care staff consulted; no adverse overnight events reported to me; resting in bed; will need home oxygen; case management working on procurement; he denies N/V/F/C/chest pain or SOB Objective Vital Signs - 12hr 04/04/22 04/04/22 04/04/22 02:00 03:42 07:33 Temperature 98.0 F 97.6 F Pulse Rate 82 58 L Respiratory 18 20 Rate Blood Pressure 120/78 120/54 O2 Sat by Pulse 99 100 100 Oximetry 04/04/22 10:00 Temperature Pulse Rate 58 L Respiratory Rate Blood Pressure O2 Sat by Pulse Oximetry Constitutional: no acute distress Eyes: non-icteric ENT: oropharynx moist Neck: supple, no lymphadenopathy, no JVD, other (large circumference) Effort: mildly labored Ascultation: Bilateral: clear, diminished breath sounds Percussion: Bilateral: not dull Cardiovascular: regular rate and rhythm Gastrointestinal: normoactive bowel sounds, soft, non-tender, non-distended Integumentary: normal Extremities: no cyanosis, pulses normal, no ischemia or petechiae, edema Neurologic: non-focal exam, pupils equal and round, CN II-XII normal, motor strength normal and Psychiatric: mood appropriate, affect normal CBC and BMP: 03/28/22 20:03 04/03/22 04:30 ABG, PT/INR, D-dimer: ABG ABG pH 7.291 pH Units (7.350-7.450) L 03/30/22 15:00 ABG pCO2 90.4 mm Hg 03/30/22 15:00 ABG pO2 129.6 mm Hg (80.0-90.0) H 03/30/22 15:00 ABG O2 Saturation 98.1 % (95.0-99.0) 03/30/22 15:00 PT/INR, D-dimer PT 13.7 Sec. (12.2-14.9) 04/04/22 05:26 INR 0.95 (0.87-1.13) 04/04/22 05:26 Abnormal lab findings: Abnormal Labs 03/28/22 03/28/22 03/29/22 19:50 20:03 00:29 RBC 5.27 H Hct 46.2 H [place] % (Auto) 7.9 H ABG pH ABG pO2 ABG HCO3 ABG Base Excess Oxyhemoglobin Chloride Carbon Dioxide 34 H 34 H BUN 8 L Glucose 194 H 192 H POC Glucose Hemoglobin A1c Albumin 3.7 L 03/29/22 03/29/22 03/29/22 08:03 11:44 16:27 RBC Hct [place] % (Auto) ABG pH ABG pO2 ABG HCO3 ABG Base Excess Oxyhemoglobin Chloride Carbon Dioxide BUN Glucose POC Glucose 195 H 229 H 125 H Hemoglobin A1c Albumin 03/29/22 03/29/22 03/30/22 20:13 21:16 05:21 RBC Hct [place] % (Auto) ABG pH ABG pO2 ABG HCO3 ABG Base Excess Oxyhemoglobin Chloride 96.8 L Carbon Dioxide 40 H BUN Glucose 142 H POC Glucose 216 H 232 H Hemoglobin A1c Albumin 03/30/22 03/30/22 03/30/22 05:21 07:40 11:13 RBC Hct [place] % (Auto) ABG pH ABG pO2 ABG HCO3 ABG Base Excess Oxyhemoglobin Chloride Carbon Dioxide BUN Glucose POC Glucose 150 H 219 H Hemoglobin A1c 8.8 H Albumin 03/30/22 03/30/22 03/30/22 11:40 15:00 16:01 RBC Hct [place] % (Auto) ABG pH 7.273 L 7.291 L ABG pO2 129.6 H ABG HCO3 46.6 H 42.6 H ABG Base Excess 14.2 H 11.6 H Oxyhemoglobin 92.8 L 94.8 L Chloride Carbon Dioxide BUN Glucose POC Glucose 156 H Hemoglobin A1c Albumin 03/30/22 03/31/22 03/31/22 20:10 04:59 07:54 RBC Hct [place] % (Auto) ABG pH ABG pO2 ABG HCO3 ABG Base Excess Oxyhemoglobin Chloride Carbon Dioxide 38 H BUN Glucose 163 H POC Glucose 208 H 147 H Hemoglobin A1c Albumin 03/31/22 03/31/22 03/31/22 12:16 16:25 20:49 RBC Hct [place] % (Auto) ABG pH ABG pO2 ABG HCO3 ABG Base Excess Oxyhemoglobin Chloride Carbon Dioxide BUN Glucose POC Glucose 209 H 129 H 157 H Hemoglobin A1c Albumin 04/01/22 04/01/22 04/01/22 08:07 11:33 15:37 RBC Hct [place] % (Auto) ABG pH ABG pO2 ABG HCO3 ABG Base Excess Oxyhemoglobin Chloride Carbon Dioxide BUN Glucose POC Glucose 144 H 219 H 186 H Hemoglobin A1c Albumin 04/01/22 04/02/22 04/02/22 21:28 04:50 07:40 RBC Hct [place] % (Auto) ABG pH ABG pO2 ABG HCO3 ABG Base Excess Oxyhemoglobin Chloride 97.2 L Carbon Dioxide 41 H* BUN Glucose 140 H POC Glucose 170 H 139 H Hemoglobin A1c Albumin 04/02/22 04/02/22 04/02/22 11:13 16:35 20:15 RBC Hct [place] % (Auto) ABG pH ABG pO2 ABG HCO3 ABG Base Excess Oxyhemoglobin Chloride Carbon Dioxide BUN Glucose POC Glucose 182 H 192 H 167 H Hemoglobin A1c Albumin 04/03/22 04/03/2222 04:30 07:50 11:34 RBC Hct [place] % (Auto) ABG pH ABG pO2 ABG HCO3 ABG Base Excess Oxyhemoglobin Chloride 94.4 L Carbon Dioxide 38 H BUN Glucose 137 H POC Glucose 147 H 213 H Hemoglobin A1c Albumin 04/03/22 04/03/22 04/04/22 16:22 20:20 07:33 RBC Hct [place] % (Auto) ABG pH ABG pO2 ABG HCO3 ABG Base Excess Oxyhemoglobin Chloride Carbon Dioxide BUN Glucose POC Glucose 143 H 162 H 130 H Hemoglobin A1c Albumin 04/04/22 12:15 RBC Hct [place] % (Auto) ABG pH ABG pO2 ABG HCO3 ABG Base Excess Oxyhemoglobin Chloride Carbon Dioxide BUN Glucose POC Glucose 229 H Hemoglobin A1c Albumin Allied health notes reviewed: nursing
--- NOTE | 2022-04-04 15:42 | Progress Note ---
Assessment and Plan Assessment and plan: #Acute on chronic hypoxic respiratory failure #Acute on chronic hypercapnic respiratory failure #Carbon dioxide narcosisresolved - etiology: Likely multifactorial (acute on chronic diastolic and systolic heart failure, obesity hypoventilation syndrome, and possible obstructive sleep apnea) - baseline oxygen requirements: Room air - supplemental oxygen: 3 L nasal cannula during the day and BiPAP at night - Continue protocol: continue pulse oximetry, wean oxygen as tolerated, ordered incentive spirometry and educated patient on how to use it and its importance. 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 -TTE: EF 25-30% -continue lisinopril, metoprolol and lasix -strict I/Os, daily weights, cardiac diet -no need for ischemic evaluation at this time -Cardiology consulted, assistance appreciated #Paroxysmal atrial fibrillation -patient prescribed pradaxa in past, has not used it in the last 6 months -discussed importance of taking anticoagulation to decrease risk of stroke -Continue warfarin 10 mg daily with lovenox bridging due to patient lack of insurance (INR goal 23) -continue beta-blockade #Metabolic alkalosis -likely secondary to CO2 retention from FAZAL -worsening likely due to diuretics #Possible obstructive sleep apnea #Obesity hypoventilation syndrome -patient reportedly uses CPAP at home -BiPAP at night while inpatient -patient morbidly obese, will require bariatric surgery evaluation at discharge. Patient should follow-up with pulmonology in outpatient setting for sleep study. #[id number] Type II Diabetes with hyperglycemia-improving -patient reports taking metformin in the past -A1C 8.8% -will continue with sliding scale for now -will restart metformin at discharge #Hypertension-improved -Patient taking medications at home -BP controlled/low while inpatient -We will continue with GDMT for CHF #Mild protein caloric malnutrition Albumin 3.7 Starting dietary supplementation #Obesity #Weight loss counseling #Exercise counseling - BMI 48.9 - Counseled patient on the importance of weight loss, incorporating exercise, and dietary changes (lean meats, fresh fruits and vegetables, and water intake). Patient expresses understanding. - Time: +15 min #Advanced care planning -Disease education conducted, care plan discussed, diagnoses discussed, prognosis discussed, and patient acknowledges understanding with care plan -Time: +30 min Updates: Patient desaturated to mid 70s during 6-minute walk test, and the patient required 4 L nasal cannula to obtain oxygen saturations of at least 92%. though he qualifies for home O2, the patient's finances prevent him from obtaining home oxygen. Case management made aware. Disposition Plan: Continue medical management Total Time Spent with Patient (Minutes): 45 minutes History Interval history: No acute events overnight. Hospitalist Physical - Constitutional Vitals: Temp Pulse Resp BP Pulse Ox 97.6 F 58 L 20 120/54 100 04/04/22 07:33 04/04/22 10:00 04/04/22 07:33 04/04/22 07:33 04/04/22 07:33 General appearance: Present: no acute distress, well-nourished, obese - EENT Eyes: Present: PERRL, EOM intact ENT: hearing intact, clear oral mucosa, dentition normal - Neck Neck: Present: supple, normal ROM - Respiratory Respiratory effort: normal Respiratory: bilateral: diminished (3 L nasal cannula) - Cardiovascular Rhythm: regular Heart Sounds: Present: S1 & S2 - Extremities Extremities: no ischemia, pulses intact, pulses symmetrical, normal temperature, normal color Extremity abnormal: edema (Trace edema bilateral lower EXTR) Peripheral Pulses: within normal limits - Abdominal General gastrointestinal: soft, non-tender, non-distended, normal bowel sounds - Integumentary Integumentary: Present: clear, warm, dry - Psychiatric Psychiatric: appropriate mood/affect, intact judgment & insight - Neurologic Neurologic: CNII-XII intact, moves all extremities - Allied Health Allied health notes reviewed: nursing HEART Score - HEART Score EKG: Non-specific Age: 45-65 Risk factors: > 3 risk factors or hx of atherosclerotic disease Troponin: Troponin T < 0.010 ng/mL (0.00-0.029) 03/29/22 11:01 Troponin: < normal limit Results - Labs CBC & Chem 7: 03/28/22 20:03 04/03/22 04:30 Labs: Laboratory Last Values WBC 6.1 K/mm3 (4.5-11.0) 03/28/22 20:03 RBC 5.27 M/mm3 (3.65-5.03) H 03/28/22 20:03 Hgb 15.1 gm/dl (11.8-15.2) 03/28/22 20:03 Hct 46.2 % (35.5-45.6) H 03/28/22 20:03 MCV 88 fl (84-94) 03/28/22 20:03 MCH 29 pg (28-32) 03/28/22 20:03 MCHC 33 % (32-34) 03/28/22 20:03 RDW 15.1 % (13.2-15.2) 03/28/22 20:03 Plt Count 156 K/mm3 (140-440) 03/28/22 20:03 Lymph % (Auto) 20.6 % (13.4-35.0) 03/28/22 20:03 [place] % (Auto) 7.9 % (0.0-7.3) H 03/28/22 20:03 Eos % (Auto) 1.5 % (0.0-4.3) 03/28/22 20: Baso % (Auto) 0.8 % (0.0-1.8) 03/28/22 20:03 Lymph # (Auto) 1.3 K/mm3 (1.2-5.4) 03/28/22 20:03 [place] # (Auto) 0.5 K/mm3 (0.0-0.8) 03/28/22 20: Eos # (Auto) 0.1 K/mm3 (0.0-0.4) 03/28/22 20:03 Baso # (Auto) 0.0 K/mm3 (0.0-0.1) 03/28/22 20: Seg Neutrophils % 69.2 % (40.0-70.0) 03/28/22 20: Seg Neutrophils # 4.2 K/mm3 (1.8-7.7) 03/28/22 20:03 PT 13.7 Sec. (12.2-14.9) 04/04/22 05: INR 0.95 (0.87-1.13) 04/04/22 05:26 ABG pH 7.291 pH Units (7.350-7.450) L 03/30/22 15:00 ABG pCO2 90.4 mm Hg 03/30/22 15:00 ABG pO2 129.6 mm Hg (80.0-90.0) H 03/30/22 15:00 ABG HCO3 42.6 mmol/L (20.0-26.0) H 03/30/22 15:00 ABG O2 Saturation 98.1 % (95.0-99.0) 03/30/22 15:00 ABG O2 Content 19.9 (0.0-44) 03/30/22 15:00 ABG Base Excess 11.6 mmol/L (-2.0-3.0) H 03/30/22 15:00 ABG Hemoglobin 14.8 gm/dl (14.0-18.0) 03/30/22 15:00 ABG Carboxyhemoglobin 2.8 % (0.0-5.0) 03/30/22 15:00 ABG Methemoglobin 0.6 % (0.0-1.5) 03/30/22 15:00 Oxyhemoglobin 94.8 % (95.0-99.0) L 03/30/22 15:00 FiO2 40 % 03/30/22 15:00 Sodium 142 mmol/L (137-145) 04/03/22 04:30 Potassium 4.0 mmol/L (3.6-5.0) 04/03/22 04:30 Chloride 94.4 mmol/L (98-107) L 04/03/22 04:30 Carbon Dioxide 38 mmol/L (22-30) H 04/03/22 04:30 Anion Gap 14 mmol/L 04/03/22 04:30 BUN 17 mg/dL (9-20) 04/03/22 04:30 Creatinine 0.9 mg/dL (0.8-1.3) 04/03/22 04:30 Estimated GFR > 60 ml/min 04/03/22 04:30 BUN/Creatinine Ratio 19 % 04/03/22 04:30 Glucose 137 mg/dL (75-100) H 04/03/22 04:30 POC Glucose 229 mg/dL (70-105) H 04/04/22 12:15 Hemoglobin A1c 8.8 % (4-6) H 03/30/22 05:21 Calcium 8.9 mg/dL (8.4-10.2) 04/03/22 04:30 Magnesium 1.90 mg/dL (1.7-2.3) 03/31/22 04:59 Total Bilirubin 0.80 mg/dL (0.1-1.2) 03/28/22 19:50 AST 14 units/L (5-40) 03/28/22 19:50 ALT 18 units/L (7-56) 03/28/22 19:50 Alkaline Phosphatase 85 units/L (35-129) 03/28/22 19:50 Troponin T < 0.010 ng/mL (0.00-0.029) 03/29/22 11:01 NT-Pro-B Natriuret Pep 790.5 pg/mL (0-900) 03/28/22 20:03 Total Protein 6.9 g/dL (6.3-8.2) 03/28/22 19:50 Albumin 3.7 g/dL (3.9-5) L 03/28/22 19:50 Albumin/Globulin Ratio 1.2 % 03/28/22 19:50 Bell/IV: Voiding Method Toilet Active Medications - Current Medications Current Medications: Generic Name Dose Route Start Last Admin Trade Name Freq PRN Reason Stop Dose Admin Acetaminophen 650 mg 03/29/22 00:09 Acetaminophen 325 Mg Tab PO Q6H PRN Pain, Mild (1-3) Aspirin 325 mg 03/30/22 10:00 04/04/22 10:10 Aspirin Ec 325 Mg Tab PO 325 mg QDAY SHAYAN Administration Dextrose 50 ml 03/29/22 00:09 Dextrose 50% In Water (25gm) 50 Ml Syringe IV Q30MIN PRN Hypoglycemia Protocol Enoxaparin Sodium 100 mg 04/01/22 10:00 04/04/22 10:11 Enoxaparin 100 Mg/1 Ml Inj SUB-Q 100 mg Q12HR SHAYAN Administration Protocol Enoxaparin Sodium 40 mg 04/01/22 10:00 04/04/22 10:11 Enoxaparin 40 Mg/0.4 Ml Inj SUB-Q 40 mg Q12HR SHAYAN Administration Famotidine 20 mg 03/31/22 22:00 04/03/22 22:35 Famotidine 20 Mg Tab PO 20 mg QHS SHAYAN Administration Furosemide 40 mg 04/04/22 10:00 04/04/22 10:11 Furosemide 40 Mg Tab PO 40 mg QDAY SHAYAN Administration Insulin Human Lispro 0 unit 03/29/22 07:30 04/04/22 12:47 Insulin Lispro 100 Unit/Ml SUB-Q 3 unit ACHS SHAYAN Administration Protocol Lisinopril 10 mg 04/02/22 10:00 04/04/22 10:10 Lisinopril 10 Mg Tab PO 10 mg QDAY SHAYAN Administration Metoprolol Tartrate 100 mg 03/30/22 10:59 04/04/22 10:10 Metoprolol Tartrate 50 Mg Tab PO 100 mg BID SHAYAN Administration Morphine Sulfate 2 mg 03/29/22 00:09 Morphine 4 Mg/1 Ml Inj IV Q5MIN PRN Chest Pain unrelieved by NTG Nitroglycerin 0.4 mg 03/29/22 00:09 Nitroglycerin 0.4 Mg Tab Subl SL Q5M PRN Chest Pain Polyethylene Glycol 17 gm 03/31/22 14:00 04/04/22 12:47 Polyethylene Glycol 3350 17 Gm Powder PO Not Given QDAY SHAYAN Sodium Chloride 10 ml 03/29/22 00:09 03/30/22 21:10 Sodium Chloride 0.9% 10 Ml Flush Syringe IV 10 ml PRN PRN Administration LINE FLUSH Tramadol HCl 50 mg 03/29/22 00:09 Tramadol 50 Mg Tab PO Q6H PRN Pain, Moderate (4-6) Warfarin Sodium 10 mg 04/04/22 17:00 Warfarin 10 Mg Tab PO 04/05/22 16:59 DAILY@1700 NR Warfarin Sodium 2.5 mg 04/04/22 17:00 Warfarin 2.5 Mg Tab PO 04/05/22 16:59 DAILY@1700 NR Nutrition/Malnutrition Assess - Dietary Evaluation Nutrition/Malnutrition Findings: Nutrition Notes Start: 03/29/22 16:19 Freq: Status: Active Protocol: Document 04/03/22 16:06 ADRIAN (Rec: 04/03/22 16:18 ADRIAN [id number]) Nutrition Notes Initial or Follow up Brief Note Current Diagnosis Diabetes,Hypertension, Respiratory Failure Other Pertinent Diagnosis HFrEF, CO2 Narcosis, Atrial Fibrilation, Metabolic Alkalosis, OHS. Current Diet Cardiac/Consistent Carbohydrates Diet (since B ). Height 5 ft 5 in Weight 135 kg [place] Body Weight (kg) 61.81 BMI 49.5 Weight change and time frame No body weight change reported in 2 days. Weight Status Morbidly Obese Subjective/Other Information RD consult for dietary supplementation assessment. Pt states that he is enjoying his meals and has been able to finish all of them. I will not recommend dietary supplementation at the time. Diet education was not provided yesterday, pt was not available at the time of visit, visit was rescheduled for today. Pt states also that he was on [place] some time ago and that he is familiar with the dietary recommendations regarding vitamin K rich foods , and we had some short conversation about it during my visit for nutrition education. Percent of energy/protein needs met: Prescribed Cardiac/Consistent Carbohydrates Diet provides for energy/protein needs (1, 977 Kcal/86 g) during LOS. #2 Nutrition Diagnosis Food and nutrition-related knowledge deficit Diagnosis Progress(for reassessment Resolved documentation) #1 Nutrition Diagnosis Overweight/obesity Diagnosis Progress(for reassessment Continues documentation) Is patient on ventilator? No Is Patient Ambulatory and/or Out of Bed Yes REE-([place]-St. Jeor-ambulatory/OOB) [ 2764.944 [id number]] Kcal/Kg value to use for calculation 12 Approximate Energy Requirements Using 1620 kcal/Kg Calculation Used for Recommendations Kcal/kg Additional Notes Protein: 0.8-1 g/Kg AdjBW; 79- 99 g/day. Fluids: 1 ml/Kcal, or as per MD. Nutrition Intervention Change Diet Order: Continue Cardiac/Consistent Carbohydrates Diet. Teaching Recipient Patient Learning Readiness Good Teaching Methods Discussion,Handout Response to Teaching Verbalize understanding Education Handouts Provided AND: Cardiac-TLC Nutrition Therapy, Vitamin K And Medications, and MyPlate For Meal Planning. Barriers to Learning No Barriers RD phone number provided Yes Patient aware of follow up options Yes Goal #1 During LOS, provide Pt with nutrition education to foster behavioral changes towards a healthy lifestyle. Goal #2 Adjust the dietary intervention to better serve Pt's needs and clinical conditions during LOS. Goal #3 Maintain body weight within +/ -3% of admission body weight during LOS. Anticipated Discharge Needs: Continue Prescribed Cardiac/ Consistent Carbohydrates Diet. Follow-Up By: 04/10/22 Additional Comments Continue monitoring food tolerance, %PO intake of meals , and BM.
[2022-04-04] MEDS ORDERED: WARFARIN 2.5 MG TAB PO NR (17:00)
[2022-04-04] MEDS ORDERED: WARFARIN 10 MG TAB PO NR (17:00)
[2022-04-04] MEDS: FAMOTIDINE 20 MG TAB PO SCH (22:07)
[2022-04-05 07:55] LABS: INR 1.1 (0.87-1.13)
[2022-04-05] MEDS: INSULIN LISPRO 100 UNIT/ML SUB-Q SCH (09:24)
--- NOTE | 2022-04-05 09:30 | Progress Note ---
Assessment and Plan Acute on chronic hypercarbic & hypoxemic respiratory failure Obesity hypoventilation syndrome Possible obstructive sleep apnea Acute encephalopathy Acute congestive heart failure exacerbation Morbid obesity DM II Chest pain Hypertension - discharge planning ok pulmonary-vickers once home oxygen procured - continue BIPAP scheduled qhs with prn daytime use (he has a home NIV machine) - Pulmonary out patient follow up for PFTs and optimization of respiratory status + sleep clinic evaluation - no new issues, continue care as below; - continue diuresis while following electrolytes - continue to wean supplemental oxygen to keep O2 sats > 90% - continue Bronchodilators (ИРИНА & LABA) with pulm hygiene per RT - continue systemic steroids with slow taper - continue inhaled corticosteroids - continue to avoid nephrotoxins, renally dose all medications - continue mobility protocols to prevent pressure ulcers - PT/OT as tolerated - Wound care per RN/WCT - continue accuchecks with glycemic control per SSI for target blood glucose < 180 mg/dL - Smoking cessation strongly counseled at the bedside - home oxygen evaluation at discharge - GI & VTE prophylaxis - Flu & pneumovax per protocol - continue other care per attending / other consultants - prn analgesia per pain score ... re-evaluate in am & prn Subjective Date of service: 04/05/22 Principal diagnosis: Acute on chronic hypercarbic & hypoxemic resp failure; OHS/FAZAL; AE-CHF; AMS Interval history: Patient is seen today for: Acute on chronic hypercarbic & hypoxemic respiratory failure; OHS / FAZAL; AE-CHF; Acute encephalopathy; Morbid obesity; Chest pain; H/O PAF Seen and examined at bedside; 24hour events reviewed; nursing and respiratory care staff consulted; no adverse overnight events reported to me; resting in bed; Objective Vital Signs - 12hr 04/04/22 04/05/22 04/05/22 22:00 00:42 02:00 Temperature Pulse Rate 75 Respiratory 18 Rate Blood Pressure [Left] O2 Sat by Pulse 97 99 95 Oximetry 04/05/22 03:55 Temperature 97.6 F Pulse Rate 68 Respiratory 16 Rate Blood Pressure 119/71 [Left] O2 Sat by Pulse 98 Oximetry Constitutional: no acute distress Eyes: non-icteric ENT: oropharynx moist Neck: supple, no lymphadenopathy, no JVD, other (large circumference) Effort: mildly labored Ascultation: Bilateral: clear, diminished breath sounds Percussion: Bilateral: not dull Cardiovascular: regular rate and rhythm Gastrointestinal: normoactive bowel sounds, soft, non-tender, non-distended Integumentary: normal Extremities: no cyanosis, pulses normal, no ischemia or petechiae, edema Neurologic: non-focal exam, pupils equal and round, CN II-XII normal, motor strength normal and Psychiatric: mood appropriate, affect normal CBC and BMP: 03/28/22 20:03 04/03/22 04:30 ABG, PT/INR, D-dimer: ABG ABG pH 7.291 pH Units (7.350-7.450) L 03/30/22 15:00 ABG pCO2 90.4 mm Hg 03/30/22 15:00 ABG pO2 129.6 mm Hg (80.0-90.0) H 03/30/22 15:00 ABG O2 Saturation 98.1 % (95.0-99.0) 03/30/22 15:00 PT/INR, D-dimer PT 15.5 Sec. (12.2-14.9) H 04/05/22 07:01 INR 1.10 (0.87-1.13) 04/05/22 07:01 Abnormal lab findings: Abnormal Labs 03/28/22 03/28/22 03/29/22 19:50 20:03 00:29 RBC 5.27 H Hct 46.2 H [place] % (Auto) 7.9 H PT ABG pH ABG pO2 ABG HCO3 ABG Base Excess Oxyhemoglobin Chloride Carbon Dioxide 34 H 34 H BUN 8 L Glucose 194 H 192 H POC Glucose Hemoglobin A1c Albumin 3.7 L 03/29/22 03/29/22 03/29/22 08:03 11:44 16:27 RBC Hct [place] % (Auto) PT ABG pH ABG pO2 ABG HCO3 ABG Base Excess Oxyhemoglobin Chloride Carbon Dioxide BUN Glucose POC Glucose 195 H 229 H 125 H Hemoglobin A1c Albumin 03/29/22 03/29/22 03/30/22 20:13 21:16 05:21 RBC Hct [place] % (Auto) PT ABG pH ABG pO2 ABG HCO3 ABG Base Excess Oxyhemoglobin Chloride 96.8 L Carbon Dioxide 40 H BUN Glucose 142 H POC Glucose 216 H 232 H Hemoglobin A1c Albumin 03/30/22 03/30/22 03/30/22 05:21 07:40 11:13 RBC Hct [place] % (Auto) PT ABG pH ABG pO2 ABG HCO3 ABG Base Excess Oxyhemoglobin Chloride Carbon Dioxide BUN Glucose POC Glucose 150 H 219 H Hemoglobin A1c 8.8 H Albumin 03/30/22 03/30/22 03/30/22 11:40 15:00 16:01 RBC Hct [place] % (Auto) PT ABG pH 7.273 L 7.291 L ABG pO2 129.6 H ABG HCO3 46.6 H 42.6 H ABG Base Excess 14.2 H 11.6 H Oxyhemoglobin 92.8 L 94.8 L Chloride Carbon Dioxide BUN Glucose POC Glucose 156 H Hemoglobin A1c Albumin 03/30/22 03/31/22 03/31/22 20:10 04:59 07:54 RBC Hct [place] % (Auto) PT ABG pH ABG pO2 ABG HCO3 ABG Base Excess Oxyhemoglobin Chloride Carbon Dioxide 38 H BUN Glucose 163 H POC Glucose 208 H 147 H Hemoglobin A1c Albumin 03/31/22 03/31/22 03/31/22 12:16 16:25 20:49 RBC Hct [place] % (Auto) PT ABG pH ABG pO2 ABG HCO3 ABG Base Excess Oxyhemoglobin Chloride Carbon Dioxide BUN Glucose POC Glucose 209 H 129 H 157 H Hemoglobin A1c Albumin 04/01/22 04/01/22 04/01/22 08:07 11:33 15:37 RBC Hct [place] % (Auto) PT ABG pH ABG pO2 ABG HCO3 ABG Base Excess Oxyhemoglobin Chloride Carbon Dioxide BUN Glucose POC Glucose 144 H 219 H 186 H Hemoglobin A1c Albumin 04/01/22 04/02/22 04/02/22 21:28 04:50 07:40 RBC Hct [place] % (Auto) PT ABG pH ABG pO2 ABG HCO3 ABG Base Excess Oxyhemoglobin Chloride 97.2 L Carbon Dioxide 41 H* BUN Glucose 140 H POC Glucose 170 H 139 H Hemoglobin A1c Albumin 04/02/22 04/02/22 04/02/22 11:13 16:35 20:15 RBC Hct [place] % (Auto) PT ABG pH ABG pO2 ABG HCO3 ABG Base Excess Oxyhemoglobin Chloride Carbon Dioxide BUN Glucose POC Glucose 182 H 192 H 167 H Hemoglobin A1c Albumin 04/03/22 04/03/22 04/03/22 04:30 07:50 11:34 RBC Hct [place] % (Auto) PT ABG pH ABG pO2 ABG HCO3 ABG Base Excess Oxyhemoglobin Chloride 94.4 L Carbon Dioxide 38 H BUN Glucose 137 H POC Glucose 147 H 213 H Hemoglobin A1c Albumin 04/03/22 04/03/22 04/04/22 16:22 20:20 07:33 RBC Hct [place] % (Auto) PT ABG pH ABG pO2 ABG HCO3 ABG Base Excess Oxyhemoglobin Chloride Carbon Dioxide BUN Glucose POC Glucose 143 H 162 H 130 H Hemoglobin A1c Albumin 04/04/22 04/04/22 04/04/22 12:15 15:23 21:00 RBC Hct [place] % (Auto) PT ABG pH ABG pO2 ABG HCO3 ABG Base Excess Oxyhemoglobin Chloride Carbon Dioxide BUN Glucose POC Glucose 229 H 138 H 141 H Hemoglobin A1c Albumin 04/05/22 04/05/22 07:01 08:44 RBC Hct [place] % (Auto) PT 15.5 H ABG pH ABG pO2 ABG HCO3 ABG Base Excess Oxyhemoglobin Chloride Carbon Dioxide BUN Glucose POC Glucose 132 H Hemoglobin A1c Albumin Allied health notes reviewed: nursing
[2022-04-05] MEDS: METOPROLOL TARTRATE 50 MG TAB PO SCH (10:33)
[2022-04-05] MEDS: ASPIRIN EC 325 MG TAB PO SCH (10:33)
[2022-04-05] MEDS: ENOXAPARIN 40 MG/0.4 ML INJ SUB-Q SCH (10:33)
[2022-04-05] MEDS: ENOXAPARIN 100 MG/1 ML INJ SUB-Q SCH (10:33)
[2022-04-05] MEDS: FUROSEMIDE 40 MG TAB PO SCH (10:33)
[2022-04-05] MEDS: LISINOPRIL 10 MG TAB PO SCH (10:34)
[2022-04-05] MEDS: POLYETHYLENE GLYCOL 3350 17 GM POWDER PO SCH (10:34)
[2022-04-05 11:42] VITALS: BP 102/84
--- NOTE | 2022-04-05 13:04 | Discharge Summary ---
Providers - Providers Date of Admission: 03/29/22 00:10 Date of discharge: 04/05/22 Attending physician: LV CRUMP MD 03/29/22 Consult to Cardiac Rehabilitation [CONS] Routine Reason For Exam: Phase I 03/29/22 00:10 Consult to Cardiology [CONS] Routine Consulting Provider: ANTIONETTE TERAN Reason For Exam: Chest Pain Consult to Dietitian/Nutrition [CONS] Routine Physician Instructions: Reason For Exam: Reason for Consult: Diet education 03/30/22 12:18 Consult to Physician [CONS] Routine Comment: Consulting Provider: BOONE SORIA Physician Instructions: Reason For Exam: CO2 narcosis Primary care physician: FOLDER MACHINE Hospitalization Reason for admission: Acute on chronic heart failure, hypoxic and hypercapnic respiratory failure Condition: Stable Pertinent studies: Reviewed. Procedures: None. Hospital course: Patient is a 51-year-old male past medical history of hypertension, [id number]-[id number] type 2 diabetes mellitus, chronic systolic heart failure, morbid obesity, obesity hypoventilation syndrome, atrial fibrillation, presumed obstructive sleep apnea, chronic hypercapnic respiratory failure, chronic hypoxic respiratory failure who presented to the ED with complaints of shortness of breath, chest pain, and running out of his medications approximately 6 months prior. Patient was unable to fill his prescriptions due to insurance complications. The patient endorses symptoms being worse on exertion in addition to having progressive scrotal swelling. In the ED, the patient was found to be hemodynamically stable, and he was initiated on IV diuresis and goal-directed therapy for heart failure exacerbation. Cardiology was consulted for further management. Pulmonology was consulted for management of acute on chronic hypercarbic and hypoxemic respiratory failure. The patient required BiPAP at night with supplemental oxygen during the day. Due to insurance concerns, the patient was transitioned off of Eliquis and started on warfarin with a Lovenox bridge. Patient has been counseled and has been able to demonstrate ability to administer Lovenox in the presence of his RN. Patient required 4 L nasal cannula as a result of his 6-minute walk test. Patient has been counseled at length about the importance of medication compliance and following up with his outpatient appointments. Patient will be referred to a PCP upon discharge. Patient is medically clear for discharge. 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, paroxysmal atrial fibrillation, metabolic alkalosis, possible obstructive sleep apnea, obesity hypoventilation syndrome, [id number] type 2 diabetes mellitus with hyperglycemia, hypertension, mild protein caloric malnutrition, morbid obesity Time spent for discharge: 45 min Core Measure Documentation - Palliative Care Palliative Care/ Comfort Measures: Not Applicable - Core Measures Any of the following diagnoses?: heart failure - Heart Failure Discharge Requirements CARMEN/ARB for LVSD if EF <40%: Yes Beta toshia at discharge: Yes Exam - Constitutional Vitals: Temp Pulse Resp BP Pulse Ox 98.3 F 43 L 17 102/84 98 04/05/22 11:03 04/05/22 11:03 04/05/22 11:03 04/05/22 11:03 04/05/22 11:03 General appearance: Present: no acute distress, obese - EENT Eyes: Present: PERRL, EOM intact ENT: hearing intact, clear oral mucosa, dentition normal - Neck Neck: Present: supple, normal ROM - Respiratory Respiratory effort: normal Respiratory: bilateral: diminished (4 L nasal cannula) - Cardiovascular Rhythm: irregularly irregular Heart Sounds: Present: S1 & S2 - Extremities Extremities: no ischemia, pulses intact, pulses symmetrical, normal temperature, normal color Peripheral Pulses: within normal limits - Abdominal General gastrointestinal: Present: soft, non-tender, non-distended, normal bowel sounds Male genitourinary: Present: deferred - Rectal Rectal Exam: deferred - Integumentary Integumentary: Present: clear, warm, dry - Musculoskeletal Musculoskeletal: strength equal bilaterally - Psychiatric Psychiatric: appropriate mood/affect, memory intact, cooperative, other (Very limited insight regarding overall condition) - Neurologic Neurologic: CNII-XII intact, moves all extremities - Allied Health Allied health notes reviewed: nursing Plan Activity: advance as tolerated Diet: low salt, diabetic Special Instructions: restrict fluid intake to (2 L/day) Additional Instructions: Patient is a 51-year-old male past medical history of hypertension, ydb-[id number]-[id number] type 2 diabetes mellitus, chronic systolic heart failure, morbid obesity, obesity hypoventilation syndrome, atrial fibrillation, presumed obstructive sleep apnea, chronic hypercapnic respiratory failure, chronic hypoxic respiratory failure who presented to the ED with complaints of shortness of breath, chest pain, and running out of his medications approximately 6 months prior. Patient was unable to fill his prescriptions due to insurance complications. The patient endorses symptoms being worse on exertion in addition to having progressive scrotal swelling. In the ED, the patient was found to be hemodynamically stable, and he was initiated on IV diuresis and goal-directed therapy for heart failure exacerbation. Cardiology was consulted for further management. Pulmonology was consulted for management of acute on chronic hypercarbic and hypoxemic respiratory failure. The patient required BiPAP at night with supplemental oxygen during the day. Due to insurance concerns, the patient was transitioned off of Eliquis and started on warfarin with a Lovenox bridge. Patient has been counseled and has been able to demonstrate ability to administer Lovenox in the presence of his RN. Patient required 4 L nasal cannula as a result of his 6-minute walk test. Patient has been counseled at length about the importance of medication compliance and following up with his outpatient appointments. Patient will be referred to a PCP upon discharge. Patient is medically clear for discharge. Care Plan Goals: Patient is medically clear for discharge. Assessment: Patient is a 51-year-old male past medical history of hypertension, ysl-sqmfjsb-uaqenoekt type 2 diabetes mellitus, chronic systolic heart failure, morbid obesity, obesity hypoventilation syndrome, atrial fibrillation, presumed obstructive sleep apnea, chronic hypercapnic respiratory failure, chronic hypoxic respiratory failure who presented to the ED with complaints of shortness of breath, chest pain, and running out of his medications approximately 6 months prior. Patient was unable to fill his prescriptions due to insurance complications. The patient endorses symptoms being worse on exertion in addition to having progressive scrotal swelling. In the ED, the patient was found to be hemodynamically stable, and he was initiated on IV diuresis and goal-directed therapy for heart failure exacerbation. Cardiology was consulted for further management. Pulmonology was consulted for management of acute on chronic hypercarbic and hypoxemic respiratory failure. The patient required BiPAP at night with supplemental oxygen during the day. Due to insurance concerns, the patient was transitioned off of Eliquis and started on warfarin with a Lovenox bridge. Patient has been counseled and has been able to d emonstrate ability to administer Lovenox in the presence of his RN. Patient required 4 L nasal cannula as a result of his 6-minute walk test. Patient has been counseled at length about the importance of medication compliance and following up with his outpatient appointments. Patient will be referred to a PCP upon discharge. Patient is medically clear for discharge. Follow up with: EDER POE MD [Staff Physician] - 7 Days PRIMARY CAREMD [Primary Care Provider] - 7 Days Forms: Warfarin Discharge Instruction Prescriptions: Insulin Glargine [Lantus VIAL] 20 units SUB-Q QHS #1 vial AtorvaSTATin [Lipitor] 40 mg PO QHS #30 tab Warfarin [Coumadin] 10 mg PO DAILY@1700 #30 tablet Warfarin [Coumadin] 2.5 mg PO DAILY@1700 #30 tablet Enoxaparin 140 mg SUB-Q Q12HR #14 syringe Aspirin EC [Halfprin EC] 81 mg PO QDAY #30 tablet. Furosemide [Lasix TAB] 40 mg PO QDAY #30 tablet Metoprolol [Lopressor TAB] 100 mg PO BID #60 tablet Metformin HCl [metFORMIN] 1,000 mg PO BID #60 tab lisinopriL [Zestril TAB] 10 mg PO QDAY #30 tablet
[2022-04-05] MEDS ORDERED: WARFARIN 10 MG TAB PO NR (17:00)
[2022-04-05] MEDS ORDERED: WARFARIN 2.5 MG TAB PO NR (17:00)
== END 2022-04-05 15:45 | disposition home or self-care (01) | DRG 291 ==
LOC: ED 17:45 → 4A 03-29 00:10
PROVIDERS: ADMIT Internal Medicine Geriatric Medicine; ATTEND Student in an Organized Health Care Education/Training Program
PROC: 5A09357 Assistance with Respiratory Ventilation, Less than 24 Consecutive Hours, Continuous Positive Airway Pressure (ICD-10-PCS; principal; 2022-03-29)
PROC: 4A033R1 Measurement of Arterial Saturation, Peripheral, Percutaneous Approach (ICD-10-PCS; 2022-03-30)
PROC: 5A09457 Assistance with Respiratory Ventilation, 24-96 Consecutive Hours, Continuous Positive Airway Pressure (ICD-10-PCS; 2022-04-01)
PROC: 5A09357 Assistance with Respiratory Ventilation, Less than 24 Consecutive Hours, Continuous Positive Airway Pressure (ICD-10-PCS; 2022-04-05)
DX: I11.0 Hypertensive heart disease with heart failure (principal); J96.22 Acute and chronic respiratory failure with hypercapnia; J96.21 Acute and chronic respiratory failure with hypoxia; I50.43 Acute on chronic combined systolic (congestive) and diastolic (congestive) heart failure; N17.9 Acute kidney failure, unspecified; G93.40 Encephalopathy, unspecified; E44.1 Mild protein-calorie malnutrition; Z68.42 Body mass index [BMI] 45.0-49.9, adult; E66.01 Morbid (severe) obesity due to excess calories; E11.65 Type 2 diabetes mellitus with hyperglycemia; I48.0 Paroxysmal atrial fibrillation; K21.9 Gastro-esophageal reflux disease without esophagitis; I42.8 Other cardiomyopathies
CPT/HCPCS: 36415; 36600; 71045; 71275; 74018; 80048; 80053; 82803; 82962; 83036; 83735; 83880; 84484; 85025; 85610; 93005; 93306; 94660; 94760; G0378; Q9967; C8929; J1644; J1650; J1815; J1940